=== PATIENT | female | born 1960 | race Caucasian/White ===

== ENCOUNTER 2020-05-09 11:18 | Outpatient (CLI) | payer OTHER, SELFPAY ==
--- NOTE | ~2020-05-09 | XR_ITS ---
EXAMINATION: XR chest 2V EXAM DATE: 05/09/2020 11:42 INDICATION: Shortness of breath. TECHNIQUE: Frontal and lateral projections of the chest obtained and reviewed. Comparison is made to prior examination from 02/03/2015. FINDINGS: The lungs are clear. There are no pleural effusions. The cardiomediastinal silhouette is within normal limits. There is no pneumothorax suspected. The bones and soft tissues are unremarkab le. IMPRESSION: Normal chest x-ray exam. Reviewed, dictated and finalized at location B. IMPRESSION: Normal chest x-ray exam.
--- NOTE | 2020-05-09 11:57 | ECG_ITS ---
Measurements Intervals [place] Rate: 58 P: 30 AL: 124 QRS: 57 QRSD: 89 T: 64 QT: 394 QTc: 387 Interpretive Statements SINUS BRADYCARDIA BORDERLINE ECG Electronically Signed On 05-09-2020 13:03:30 CDT by Robb Aponte D.O.
[2020-05-09 12:14] LABS: Hematocrit 42.5 % (37.0-47.0); Hemoglobin 13.9 g/dL (12.0-15.0); Mean Corpuscular HGB Conc 32.7 g/dl (32-36); Mean Corpuscular Volume 91.6 fl (80-100); Mean Platelet Volume 9.7 fl (7.4-10.4); Platelet Count Result 338 k/mm3 (150-375); Red Blood Count 4.64 M/mm3 (4.2-5.4); Red Cell Distribution Width 12.8 % (11.5-14.5); White Blood Count 6.3 K/mm3 (4.5-10.0)
[2020-05-09 12:23] LABS: Alanine Aminotransferase 15 U/L (4-35); Albumin Level 4.2 g/dL (3.5-5.1); Alkaline Phosphatase 77 U/L (38-126); Anion Gap 6 mmol/L (8-16); Aspartate Amino Transferase 22 U/L (14-36); Bilirubin,Total 0.8 mg/dL (0.2-1.3); Blood Urea Nitrogen 13 mg/dL (7-17); Calcium 9.3 mg/dL (8.4-10.2); Carbon Dioxide 27 mmol/L (22-30); Chloride 105 mmol/L (98-107); Cholesterol 199 mg/dL (0-200); Estimated Glomerular Filt Rate > 60; Glucose 98 mg/dL (65-105); HDL Direct 45 mg/dL; Potassium 4.8 mmol/L (3.4-5.0); Sodium 138 mmol/L (137-145); Triglycerides 194 mg/dL (<150)
[2020-05-09 12:33] LABS: NT Pro B Type Natriuretic Pept 244 PG/ML (5-100)
[2020-05-09 12:35] LABS: LDL Cholesterol Direct 126 mg/dL
[2020-05-09 12:50] LABS: Vitamin D 25 Hydroxy 25.1 ng/mL
== END 2020-05-09 11:19 | disposition home or self-care (01) ==
LOC: ANHIMG 11:25
PROVIDERS: PCP Family Medicine; Visit Provider Nurse Practitioner Family
DX: R07.89 Other chest pain (principal); R06.02 Shortness of breath; I10 Essential (primary) hypertension; Z13.220 Encounter for screening for lipoid disorders; R53.83 Other fatigue; Z13.29 Encounter for screening for other suspected endocrine disorder; Z13.1 Encounter for screening for diabetes mellitus; R10.13 Epigastric pain; Z86.39 Personal history of other endocrine, nutritional and metabolic disease; R06.00 Dyspnea, unspecified; R06.01 Orthopnea; M25.471 Effusion, right ankle; M25.472 Effusion, left ankle
CPT/HCPCS: 36415; 71046; 80053; 80061; 82306; 82607; 83880; 84443; 85027; 93005

== ENCOUNTER 2020-05-16 12:25 | Outpatient (CLI) | payer OTHER, SELFPAY ==
--- NOTE | ~2020-05-16 | US_ITS ---
EXAMINATION: US carotid duplex BI DATE: 05/16/2020 12:58 INDICATION: Presyncope. TECHNIQUE: Grayscale, color Doppler, and pulsed Doppler images of the cervical carotid arteries were obtained. The degree of vessel stenosis is placed in one of the following categories: normal, <50%, 5 0-69%, >=70% but less than near-occlusion, near-occlusion, or total occlusion. Note that percent sten osis relative to normal distal artery lumen diameter is indirectly measured from velocity measurement s as described by Luc, et al. Radiology 2003; 229:[id number]. COMPARISON: None. FINDINGS: RIGHT: The right common carotid artery (CCA) peak systolic velocity (PSV) is 64 cm/s. The right internal car otid artery (ICA) PSV is 99 cm/s. The right ICA end-diastolic velocity (EDV) is 40 cm/s. The right IC A/CCA PSV ratio is 1.5. Grayscale and color Doppler images yield an estimate of <50% diameter reducti on from plaque in the ICA. There is antegrade flow in the right vertebral artery. LEFT: The left CCA PSV is 79 cm/s. The left ICA PSV is 95 cm/s. The left ICA EDV is 33 cm/s. The left ICA/C CA PSV ratio is 1.2. Grayscale and color Doppler images yield an estimate of <50% diameter reduction from plaque in the ICA. There is antegrade flow in the left vertebral artery. IMPRESSION: 1. <50% stenosis in the right internal carotid artery. 2. <50% stenosis in the left internal carotid artery. Reviewed, dictated and finalized at location A.
== END 2020-05-16 12:26 | disposition home or self-care (01) ==
LOC: ANHIMG 12:27
PROVIDERS: PCP Family Medicine; Visit Provider Nurse Practitioner Family
DX: R07.89 Other chest pain (principal); I65.23 Occlusion and stenosis of bilateral carotid arteries
CPT/HCPCS: 93880

== ENCOUNTER 2020-06-23 09:02 | Emergency (ER) | payer OTHER, SELFPAY ==
[2020-06-23] VITALS (7 sets, daily range): BP systolic 116–129; BP diastolic 82–95; PULSE 67–88; RESP 12; TEMP 36.8; O2SAT 96–99
--- NOTE | ~2020-06-23 | XR_ITS ---
EXAMINATION: XR chest 1V portable EXAM DATE: 06/23/2020 09:57 INDICATION: Cough, left-sided chest pain. TECHNIQUE: Frontal and lateral projections of the chest obtained and reviewed. There is no prior janis dy for comparison. FINDINGS: Moderate chronic hyperinflation. The lungs are clear. There are no pleural effusions. The cardiomediastinal silhouette is within normal limits. There is no pneumothorax suspected. The bone s and soft tissues are unremarkable. IMPRESSION: 1. No acute cardiopulmonary findings. 2. Hyperinflation. Reviewed, dictated and finalized at location G. R INSPECTOR
--- NOTE | 2020-06-23 09:18 | ECG_ITS ---
Measurements Intervals [place] Rate: 70 P: 19 ND: 103 QRS: 66 QRSD: 82 T: 72 QT: 354 QTc: 384 Interpretive Statements SINUS RHYTHM WITH SHORT ND INTERVAL BASELINE WANDER- V1, V3-V5 BORDERLINE ECG Electronically Signed On 06-23-2020 9:36:16 HAND TRIMMER by Robb Aponte D.O.
[2020-06-23 09:50] LABS: Basophils Percent Auto 0.5 % (0.2-1.2); Eosinophils Absolute Auto 0.1 K/mm3 (0-0.3); Eosinophils Percent Auto 2.8 % (0-4.4); Hematocrit 41.6 % (37.0-47.0); Hemoglobin 13.8 g/dL (12.0-15.0); Immature Granulocyte Absolute 0.01 K/mm3 (0.00-0.031); Immature Granulocyte Percent A 0.3 % (0-0.5); Lymphocytes Absolute Auto 1.01 K/mm3 (0.9-3.2); Lymphocytes Percent Auto 25.4 % (18.3-44.2); Mean Corpuscular HGB Conc 33.2 g/dl (32-36); Mean Corpuscular Volume 90.4 fl (80-100); Mean Platelet Volume 9.5 fl (7.4-10.4); Monocytes Absolute Auto 0.8 K/mm3 (0.1-0.6); Monocytes Percent Auto 19.1 % (2.6-8.5); Neutrophils Absolute Auto 2.1 K/mm3 (1.3-6.7); Neutrophils Percent Auto 51.9 % (45.5-73.1); Platelet Count Result 292 k/mm3 (150-375); Red Cell Distribution Width 12.6 % (11.5-14.5)
[2020-06-23] MEDS: KETOROLAC 15 MG/ML VIAL (*BKC) IV PUSH (10:16)
[2020-06-23 10:38] LABS: Alanine Aminotransferase 17 U/L (4-35); Albumin Level 4.1 g/dL (3.5-5.1); Alkaline Phosphatase 76 U/L (38-126); Anion Gap 7 mmol/L (8-16); Aspartate Amino Transferase 22 U/L (14-36); Bilirubin,Total 0.7 mg/dL (0.2-1.3); Blood Urea Nitrogen 12 mg/dL (7-17); Calcium 8.8 mg/dL (8.4-10.2); Carbon Dioxide 30 mmol/L (22-30); Chloride 104 mmol/L (98-107); Estimated CRCL calculation 73 ml/min; Estimated Glomerular Filt Rate > 60; Glucose 90 mg/dL (65-105); Lipase 148 U/L (23-300); Potassium 4.5 mmol/L (3.4-5.0); Sodium 141 mmol/L (137-145)
[2020-06-23 10:48] LABS: Troponin I < 0.012 ng/mL (0.000-0.034)
--- NOTE | 2020-06-23 11:18 | PC.NURSE ---
Bedside report to TRENA Zayas, to continue care.
--- NOTE | 2020-06-23 11:20 | PC.NURSE ---
received report from Richard ALBRECHT. resting on stretcher. unhooked from monitor to use restroom. states she didnt have any relief from Toradol. will discuss with provider.
--- NOTE | 2020-06-23 11:56 | PC.NURSE ---
back on stretcher. back on monitors. should be close to discharge. patient aware.
--- NOTE | 2020-06-23 12:13 | ED.GENADULT ---
HPI - General Adult General Chief complaint: Abdominal Pain Stated complaint: chest pain, headache, diarrhea Time Seen by Provider: 06/23/20 09:14 History of Present Illness HPI narrative: Patient is a 6-year-old female with multiple complaints. First complaint is that she may have COVID-19. She has had runny nose and cough for the last week. Is been associated with diarrhea. No known exposures. She took the day off from work and was referred here to get a Covid test. She also reports that she has developed some central chest discomfort at the lower aspect of the sternum that radiates around the left side of her chest wall into her back. She has point tenderness in her back as well and she also reports some tingling. She has a little bit of a skin eruption over the anterior lower chest which she reports the pain. No fevers or chills or sweats. No drainage from the wound. Related Data Allergies Allergy/AdvReac Type Severity Reaction Status Date / Time Cephalosporins Allergy Unknown Unknown Verified 05/09/20 09:57 Penicillins Allergy Unknown Unknown Verified 05/09/20 09:57 Sulfa (Sulfonamide Allergy Unknown Unknown Verified 05/09/20 09:57 Antibiotics) sulfanilamide Allergy Unknown Unknown Verified 05/09/20 09:57 tetracycline Allergy Unknown Unknown Verified 05/09/20 09:57 ampicillin Allergy Rash Verified 06/23/20 09:33 Review of Systems Review of Systems: All systems reviewed & are unremarkable except as noted in HPI and below Constitutional: Constitutional: Denies chills, Denies fever(s) and Denies weakness ENT: Reports nasal congestion and Reports sore throat Cardiovascular: Cardiovascular: Reports chest pain, Denies rapid heart rate and Denies radiating jaw, neck or arm pain Respiratory: Respiratory: Reports cough, Denies dyspnea and Denies wheezing Gastrointestinal: Gastrointestinal: Reports abdominal pain, Reports diarrhea, Denies nausea and Denies vomiting PMFSH Past Medical History Medical History (Updated 06/23/20 @ 12:18 by Ramesh Sevilla MD) Mixed hyperlipidemia Surgical History Surgical History (Updated 06/23/20 @ 12:15 by Ramesh Sevilla MD) No pertinent past surgical history Family History Family History Father Hypertension Family history of elevated blood lipids Mother Cerebrovascular accident Family history of diabetes mellitus in first degree relative Family history of coronary artery disease Sibling Family history of pancreatic cancer Social History Social History Smoking status: Former smoker Second hand tobacco smoke exposure: No Alcohol intake: never Gender identity (if verbalized by the patient): Female Exam Narrative: Exam Narrative: GENERAL: Well-appearing, well-nourished, and in no acute distress. HEAD: Normocephalic, atraumatic. CHEST: Clear to auscultation. No respiratory distress. HEART: Regular rate and rhythm. Normal peripheral pulses. ABDOMEN: Soft, nontender, nondistended. EXTREMITIES: Normal range of motion. No edema. Back: Paraspinal muscle tenderness at the level of T10 on the left side. No rash over the back. SKIN: Warm, dry, 2 red circular areas to the anterior chest wall just at the xiphoid process. These are not weeping but one has a small ulceration.. NEURO: Alert and oriented x3. Course Course Emergency Course: Unremarkable evaluation. Patient was swabbed for Covid and should remain in home isolation until she receives the results. Patient also may be beginning to have shingles to the left side of her chest wall given the skin eruption as well as the tingling that radiates around the outside of her chest wall. We will start her on Valtrex also give her [place] for pain. Recommend follow-up with her PCP for further treatment evaluation. Vital Signs Vital signs: Vital Signs Temperature 98.2 F 06/23/20 09:27 Pulse Rate 82 06/23
--- NOTE | 2020-06-23 12:25 | PC.NURSE ---
test results and plan for discharge reviewed with patient by provider. monitors removed. SL removed intact and without difficulty. patient getting dressed.
--- NOTE | 2020-06-23 12:32 | PC.NURSE ---
discharge instructions reviewed with patient. verbalizes understanding. denies needs prior to discharge. ambulated to ED exit with steady gait.
[2020-06-23 20:27] LABS: SARS-CoV-2 RNA PCR Positive
== END 2020-06-23 12:34 | disposition home or self-care (01) ==
PROVIDERS: Emergency Provider Emergency Medicine; PCP Family Medicine
DX: U07.1 COVID-19 (principal); B02.9 Zoster without complications; E78.2 Mixed hyperlipidemia; Z87.891 Personal history of nicotine dependence
CPT/HCPCS: 36415; 71045; 80053; 83690; 84484; 85025; 87635; 93005; 96374; 99284; C9803; J1885; U0003

== ENCOUNTER 2023-04-16 13:20 | Outpatient (CLI) | payer BC, SELFPAY ==
--- NOTE | ~2023-04-16 | XR_ITS ---
EXAMINATION: XR chest 2V Exam Date/Time: 04/16/2023 13:35 CDT HISTORY: Chronic cough, shortness of breath Comparison: 06/23/2020. RESULT: Lines, tubes, and devices: Cholecystectomy clips. Lungs and pleura: Biapical pleural scarring. Otherwise clear. Cardiomediastinal silhouette: Stable. Other: No acute osseous or upper abdominal finding. IMPRESSION: No acute cardiopulmonary process. Reviewed, dictated and finalized at location K.
== END 2023-04-16 13:21 | disposition home or self-care (01) ==
LOC: ANHIMG 13:27
PROVIDERS: PCP Family Medicine; Visit Provider Physician Assistant Medical
DX: R05.3 Chronic cough (principal)
CPT/HCPCS: 71046

== ENCOUNTER 2023-06-06 12:23 | Outpatient (CLI) | payer BC, SELFPAY ==
--- NOTE | 2023-06-06 14:26 | WPDPFTINT ---
PFT Procedure Performed PFT Procedure Performed Spirometry with Pre/Post Bronchodilator Plethysmography (Lung Vol) Diffusing Cap (DLCO) Flow Vol Loop PFT Interpretation This is a pulmonary function test with pre and post-bronchodilator spirometry, plethysmography and diffusing capacity. The test was performed and results interpreted in accordance with the 2019 and 2005 ATS/ERS Task Force guidelines respectively using the Global Lung Function Initiative-2012 reference equations. Patient demonstrated good effort and cooperation. Reproducibility criteria were met. The quality of the pre bronchodilator spirometry maneuver was Grade A and post bronchodilator spirometry maneuver was Grade A. Findings: Spirometry: There is decreased maximal expiratory airflow at all lung volumes with concave expiratory flow tracing. The contour the inspiratory flow tracing is normal. The pre bronchodilator FVC is 3.03 L, 78% predicted. The pre bronchodilator FEV1 is 1.22 L, 41% predicted. The pre bronchodilator FEV1: FVC ratio is 40%. The post bronchodilator FVC is 3.23 L, representing a 7% increase. The post bronchodilator FEV1 is 1.61 L, representing a 32% increase. The post bronchodilator FEV1: FVC ratio is 50%. Plethysmography: The total lung capacity is 6.97 L, 115% predicted. The functional residual capacity is 4.61 L, 132% predicted. The residual volume is 3.94 L, 165% predicted. Diffusing capacity: The diffusing capacity unadjusted for hemoglobin and carboxyhemoglobin is 13.2, 55% predicted. The diffusing capacity adjusted for alveolar volume is 3.89, 96% predicted. Impression: There is a severe obstructive abnormality with significant improvement after inhaling a single dose of albuterol. The increase in residual volume is consistent with air trapping from an obstructive abnormality. Hyperinflation is present as demonstrated by the increase in functional residual capacity and is consistent with an obstructive abnormality. The diffusing capacity unadjusted for hemoglobin and carboxyhemoglobin is moderately decreased and normalizes when adjusted for alveolar volume. There are no prior studies for comparison
== END 2023-06-06 12:24 | disposition home or self-care (01) ==
LOC: ANHPFT 12:24
PROVIDERS: PCP Family Medicine; Visit Provider Physician Assistant Medical
DX: R05.3 Chronic cough (principal); R94.2 Abnormal results of pulmonary function studies
CPT/HCPCS: 94060; 94726; 94729

== ENCOUNTER 2023-06-12 14:00 | Outpatient (RCR) | payer BC, SELFPAY ==
--- NOTE | 2023-05-08 08:20 | PTOPEVAL1 ---
Assessment and note entered by Jai Moore Evaluation Information Assessment Status Evaluation Diagnosis bicipital tendonitis, right shoulder pain Onset 02/05/23 Subjective Information Pt. reports that she developed right shoulder pain about 2 months. She recalls no incident, just a gradual onset of pain. She reports that pain radiates into the lateral brachial region. She denies any numbness or tingling in the right arm. She reports that reaching overhead causes the most pain. She notes some pain with reaching behind her back, but not as intense as reaching overhead head. 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 She reports that pain will wake her at night. She enjoys fishing, but avoids the activity currently due to pain. She reports that her goal for therapy is to reduce her shoulder pain. Reported Pain Level Pain Score 5: Self Report Assessment PT Clinical Summary Pt. is a 63 year old female who enters the clinic with right shoulder pain. Pt. presentation is consistent with right shoulder rotator cuff syndrome on this date. Currently pt. presents with impaired ROM, impaired strength, pain and functional decline. Continued skilled PT is indicated in order to improve these areas to allow for improved comfort with all IADL's. Plan of Care Interventions Electrical Stimulation,Hot Pack/Cold Pack,Manual Therapy,Neuro Re-education,Patient/Caregiver Educati,Therapeutic Activities,Therapeutic Exercise,Self-Care/Home Management PT Services Indicated Yes Treatment Frequency and 2x/week x 10 visits Duration These treatments will address the objective and functional deficits as defined above. The patient will be advanced safely and appropriately in order for the patient to progress towards his/her prior level of function. Additional exercises will be introduced and as well as a comprehensive home exercise program upon discharge, if needed, ?to ensure carryover of functional gains achieved in the clinic. This treatment plan has been reviewed and agreement upon by the patient.
--- NOTE | 2023-05-08 08:31 | OPREHPOC ---
Outpatient Therapy Plan of Care This is a Multidisciplinary Plan of Care that may contain components documented by all disciplines (PT, OT, and ST.) PT Problem 1 PT Problem #1 Knowledge Deficit PT Goal 1 Goal Independent with a HEP addressing shoulder strength and ROM Target Visit 2 PT Problem 2 PT Problem #2 Pain PT Goal 1 Goal Decrease pain to 2/10 at worst with all overhead reaching and activities that require reaching behind the back. Target Visit 10 PT Problem 3 PT Problem #3 Impaired Range of Motion PT Goal 1 Goal -Pt. will demonstrates symmetry with reaching into combined IR and extension at the shoulder joints to assist with grooming and dressing activities. -Pt. will reach to 140 degrees active right shoulder flexion against gravity. Target Visit 10 PT Problem 4 PT Problem #4 Impaired Strength PT Goal 1 Goal Pt. will demonstrate 4/5 proximal right u.e. strenth Target Visit 5 PT Goal 2 Goal Pt. 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 Target Visit 10
--- NOTE | 2023-06-12 14:56 | PTOPDC ---
Assessment and note entered by Jai Moore Evaluation Information Assessment Status Discharge Diagnosis bicipital tendonitis, right shoulder pain Onset 02/05/23 Subjective Information Pt. reports she has seen no change in her pain levels. She reports that the arm is moving a little better, but still very painful with all movement. She report that pain is still notable with sleeping. She states that she will contact her doctor regarding possible MRI. Reported Pain Level Pain Score 7: Self Report Assessment PT Clinical Summary Pt. has attended a total of 10 treatment sessions. She demonstrates no change in her Quick DasH score since beginning treatment. Pt. does demonstrate slight improvements in overhead active ROM with the right u.e. At this time pt. is encouraged to continue with exercise at home to continue to improve ROM. Given the severity of her pain, recommend follow up with her doctor to discuss if MRI is indicated to check the intergrity of the rotator cuff. Plan of Care PT Services Indicated D/C from PT and consider MRI to assess rotator cuff integrity.
== END 2023-06-12 15:09 | disposition home or self-care (01) ==
LOC: ANHPT 14:00
PROVIDERS: PCP Family Medicine; Visit Provider Physician Assistant Medical
DX: M75.21 Bicipital tendinitis, right shoulder (principal)
CPT/HCPCS: 97014; 97110; 97140; 97161; 97530; G0283

== ENCOUNTER 2023-06-13 08:32 | Outpatient (CLI) | payer BC, SELFPAY ==
--- NOTE | ~2023-06-13 | CT_ITS ---
EXAMINATION:CT diagnostic chest w con DATE: 06/13/2023 09:11 INDICATION: Chronic cough. TECHNIQUE: Computed tomography (CT) of the chest was performed with 75 mL Omnipaque 350 intravenous c ontrast. Automated exposure control and iterative reconstruction technique were employed. The dose-le ngth product (DLP) was 264.76 mGy-cm. COMPARISON: Chest 2 views 04/16/2023 FINDINGS: There is mild scarring at the lung apices. There are centrilobular nodules measuring up to 5 mm in a cluster in left lower lobe. There are a few other scattered nodules in the lungs measuring up to 3 mm, likely benign. No pleural effusion. The heart size is normal. No pericardial effusion. Th ere is mild thoracic spondylosis. IMPRESSION: 1. Cluster of centrilobular nodules in left lung lower lobe, likely mild infection. 2. Mild scarring at the lung apices. Reviewed, dictated and finalized at location E. IMPRESSION: 1. Cluster of centrilobular nodules in left lung lower lobe, likely mild infect ion. 2. Mild scarring at the lung apices.
[2023-06-13 09:01] LABS: Estimated Glomerular Filt Rate > 60
== END 2023-06-13 08:33 | disposition home or self-care (01) ==
PROVIDERS: PCP Family Medicine; Visit Provider Physician Assistant Medical
DX: R05.9 Cough, unspecified (principal); J44.9 Chronic obstructive pulmonary disease, unspecified; R91.8 Other nonspecific abnormal finding of lung field
CPT/HCPCS: 71260; Q9967

== ENCOUNTER 2023-07-24 07:22 | Outpatient (CLI) | payer BC, SELFPAY | END 2023-07-24 07:23 | disposition home or self-care (01) | LOC: ANHLAB 07:23 | PROVIDERS: PCP Family Medicine; Visit Provider Physician Assistant | DX: R05.8 Other specified cough (principal) | CPT/HCPCS: 87015; 87070; 87102; 87106; 87116; 87118; 87205; 87206 ==

== ENCOUNTER 2023-10-13 17:54 | Emergency (ER) | payer BC, SELFPAY ==
--- NOTE | ~2023-10-13 | XR_ITS ---
EXAMINATION: XR chest 2V Exam Date/Time: 10/13/2023 18:45 CHEMICAL DEPENDENCY THERAPIST HISTORY: SOB,COUGH Comparison: 04/16/2023. RESULT: Lines, tubes, and devices: None. Lungs and pleura: Biapical pleural scarring, otherwise clear. Cardiomediastinal silhouette: Stable. Other: No acute osseous or upper abdominal finding. IMPRESSION: No acute cardiopulmonary process. Reviewed, dictated and finalized at location K. ICAL DEPENDENCY THERAPIST
[2023-10-13 18:09] VITALS: BP 165/85; PULSE 117; RESP 16; TEMP 36.4; O2SAT 98
--- NOTE | 2023-10-13 19:02 | ED.SOB ---
HPI - SOB/Dyspnea General Chief Complaint: Shortness of Breath/Dyspnea Stated Complaint: Trouble Breathing Time Seen by Provider: 10/13/23 18:00 Source: patient, RN notes reviewed and old records reviewed (Pulmonology) Mode of arrival: ambulatory Limitations: no limitations History of Present Illness HPI Narrative: Patient presents today complaining of worsening shortness of breath since yesterday as well as a headache. 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 The infectious disease physician at [facility] has some cultures and she has an appointment there at the end of October. In the meantime she has been on multiple courses of antibiotics and steroids for her cough and shortness of breath as well as frequent nebulizer treatments (q3hrs) and inhalers. States she is short of breath now more than she has ever been. Related Data Allergies Allergy/AdvReac Type Severity Reaction Status Date / Time Cephalosporins Allergy Unknown Unknown Verified 10/13/23 18:24 Penicillins Allergy Unknown Unknown Verified 10/13/23 18:24 Sulfa (Sulfonamide Allergy Unknown Unknown Verified 10/13/23 18:24 Antibiotics) sulfanilamide Allergy Unknown Unknown Verified 09/30/23 10:01 tetracycline Allergy Unknown Unknown Verified 10/13/23 18:24 ampicillin Allergy Rash Verified 09/30/23 10:01 Review of Systems Review of Systems: CONSTITUTIONAL: Denies body aches, fever, chills, or sweats. EYES: Denies visual changes, redness, or discharge. ENT: Denies rhinorrhea, congestion, sore throat, or otalgia. CARDIOVASCULAR: Denies chest pain, palpitations, or edema. RESPIRATORY: + shortness of breath, wheezing GASTROINTESTINAL: Denies abdominal pain, nausea, vomiting, or diarrhea. GENITOURINARY: Denies dysuria or hematuria. SKIN: Denies rash, itching, or wounds. MUSCULOSKELETAL: Denies back pain, joint pain, or myalgia. NEUROLOGIC: Denies numbness, tingling, or weakness.+ headache PSYCH: Denies depression or anxiety. [facility] Past Medical History Medical History BMI 25.0-25.9,adult BMI 26.0-26.9,adult Mixed hyperlipidemia Surgical History Surgical History No pertinent past surgical history Family History Family History Father Hypertension Family history of elevated blood lipids Mother Cerebrovascular accident Family history of diabetes mellitus in first degree relative Family history of coronary artery disease Acute myocardial infarction Sibling Family history of pancreatic cancer Sibling Heart disease Social History Social History Smoking status: Former smoker Second hand tobacco smoke exposure: No Alcohol intake: never Substance use: never Substance use type: does not use Lack of Transportation: No Lack of Food: Never True Current Housing: I Have Housing Concerned About Future Housing: No Difficulty Paying Gas/Electric Bills: No Difficulty Paying for Meds: No Currently Unemployed: No Education: High School Diploma/GED Difficulty w/ Childcare or Family Care: No Living arrangements: alone Occupation/Education: retired 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 Please see nursing chart for further information. There is no relevant family history pertinent to the presenting complaint Exam Narrative: GENERAL: Mildly ill-appearing, well-nourished, and in no acute distress. HEAD: Normocephalic, atraumatic. EYES: EOMI. No redness or drainage. Conjunctivae normal. ENT:
[2023-10-13] MEDS: IPRATROPIUM BR 0.02% INH SOLN 0.5 MG/2.5 ML VIAL INHALATION (19:40)
[2023-10-13] MEDS: ALBUTEROL SULFATE NEB 2.5 MG/3 ML INH INHALATION (19:40)
[2023-10-13] MEDS: dexAMETHasone SOD PHOS INJ 10 MG/ML 1 ML VIAL IM (19:40)
== END 2023-10-13 20:15 | disposition home or self-care (01) ==
PROVIDERS: Emergency Provider Nurse Practitioner; PCP Family Medicine
DX: R06.02 Shortness of breath (principal); Z87.891 Personal history of nicotine dependence; E78.2 Mixed hyperlipidemia
CPT/HCPCS: 71046; 94640; 96372; 99213; G0463; J1100

== ENCOUNTER 2023-10-21 10:54 | Outpatient (CLI) | payer BC, SELFPAY ==
--- NOTE | ~2023-10-21 | CT_ITS ---
EXAMINATION: CT diagnostic chest wo con DATE: 10/21/2023 11:19 INDICATION: Solitary pulmonary nodule TECHNIQUE: Computed tomography (CT) of the chest was performed without intravenous contrast. The dose -length product (DLP) was 117.84 mGy-cm. Automated exposure control and iterative reconstruction tech [employer] were employed. COMPARISON: 07/14/2023 FINDINGS: The previously described centrilobular nodules of the left lower lobe have resolved, consis tent with resolved infection/inflammation. There are new airspace opacities in the right middle lobe. Scattered stable pulmonary nodules measure up to 3 mm and likely reflect old granulomatous disease. No pleural effusion or pneumothorax. No pathologically enlarged thoracic lymph nodes are identified. The heart size is normal. Changes of cholecystectomy are noted. There is mild thoracic spondylosis. IMPRESSION: 1. Interval resolution of the previously described centrilobular nodules of the left lower lobe, cons istent with infection/inflammation. 2. New airspace opacities of the right middle lobe, consistent with pneumonia. Reviewed, dictated and finalized at location L. [employer] IMPRESSION: 1. Interval resolution of the previously described centrilobular nodules of the left lower lobe, consistent with infection/inflammation. 2. New airspace opacities of the right middle lobe, consistent with pneumonia.
== END 2023-10-21 10:55 | disposition home or self-care (01) ==
PROVIDERS: PCP Family Medicine; Visit Provider Physician Assistant
DX: R91.8 Other nonspecific abnormal finding of lung field (principal); R91.1 Solitary pulmonary nodule
CPT/HCPCS: 71250

== ENCOUNTER 2023-10-22 15:50 | Inpatient (IN) | payer BC, SELFPAY ==
[2023-10-22] VITALS (12 sets, daily range): BP systolic 150–171; BP diastolic 82–100; PULSE 98–107; RESP 16–22; TEMP 36.2–36.4; O2SAT 93–95; BMI 24.7
--- NOTE | ~2023-10-22 | CT_ITS ---
EXAMINATION: CTA chest PE protocol DATE: 10/24/2023 11:02 INDICATION: Shortness of breath TECHNIQUE: Computed tomography angiography (CTA) of the chest was performed with 100 mL Omnipaque-350 intravenous contrast timed to evaluate the pulmonary arteries. Coronal maximum intensity projection 3D-reconstructions were created by the technologist. The dose-length product (DLP) was 266.89 mGy-cm. Automated exposure control and iterative reconstruction technique were employed. COMPARISON: 10/21/2023 FINDINGS: The pulmonary arteries are well-opacified. No pulmonary embolism is identified. There are i mproving airspace opacities of the right middle lobe. No pleural effusion or pneumothorax. Scattered stable pulmonary nodules measuring up to 3 mm likely reflect old granulomatous disease. No pathologic ally enlarged thoracic lymph nodes are identified. The heart size is normal. There is mild thoracic s pondylosis. Changes of cholecystectomy are noted. IMPRESSION: 1. Persistent but improving airspace opacities of the right middle lobe, consistent with pneumonia. 2. No pulmonary embolus identified. Reviewed, dictated and finalized at location B. UNITY SERVICE MANAGER IMPRESSION: 1. Persistent but improving airspace opacities of the right middle lobe, consis tent with pneumonia. 2. No pulmonary embolus identified.
--- NOTE | ~2023-10-22 | XR_ITS ---
EXAMINATION: XR chest 1V portable INDICATION: Pneumonia, shortness of breath TECHNIQUE: Portable AP chest at 1016 hours COMPARISON: 10/13/2023; CT, 10/21/2023 FINDINGS: The right middle lobe airspace opacity described on CT is not definitely identified. No ple ural effusion or pneumothorax. The cardiomediastinal silhouette is normal. IMPRESSION: 1. No acute cardiopulmonary abnormality. Reviewed, dictated and finalized at location L. ASSEMBLER
--- NOTE | 2023-10-22 17:15 | ECG_ITS ---
Measurements Intervals [place] Rate: 95 P: 1 [place]: 83 QRS: 66 QRSD: 98 T: 63 QT: 341 QTc: 430 Interpretive Statements SINUS RHYTHM WITH SHORT [place] INTERVAL BASELINE ARTIFACT- I, III, AVL, AVF BORDERLINE ECG COMPARED TO ECG 06/23/2020 09:19:29 NO SIGNIFICANT CHANGES Electronically Signed On 10-22-2023 20:00:58 ROPE SILICA MACHINE OPERATOR by Robb Aponte D.O.
[2023-10-22] MEDS: SODIUM CHLORIDE 0.9% IV 1,000 ML 999 ML IV CONT (18:37)
[2023-10-22 18:41] LABS: Basophils Absolute Auto 0.1 K/mm3 (0.0-0.1); Eosinophils Absolute Auto 0.9 K/mm3 (0-0.3); Eosinophils Percent Auto 10.6 % (0-4.4); Hematocrit 42.2 % (37.0-47.0); Hemoglobin 13.5 g/dL (12.0-15.0); Immature Granulocyte Absolute 0.01 K/mm3 (0.00-0.031); Immature Granulocyte Percent A 0.1 % (0-0.5); Lymphocytes Absolute Auto 1.65 K/mm3 (0.9-3.2); Lymphocytes Percent Auto 19.9 % (18.3-44.2); Mean Corpuscular Hemoglobin 29.3 pg (26-34); Mean Corpuscular Volume 91.5 fl (80-100); Mean Platelet Volume 9.5 fl (7.4-10.4); Monocytes Absolute Auto 0.8 K/mm3 (0.1-0.6); Monocytes Percent Auto 9.5 % (2.6-8.5); Neutrophils Absolute Auto 4.9 K/mm3 (1.3-6.7); Neutrophils Percent Auto 58.9 % (45.5-73.1); Platelet Count Result 415 k/mm3 (150-375); Red Blood Count 4.61 M/mm3 (4.2-5.4); Red Cell Distribution Width 13.3 % (11.5-14.5); White Blood Count 8.3 K/mm3 (4.5-10.0)
[2023-10-22 18:50] LABS: Alanine Aminotransferase 22 U/L (6-35); Albumin Level 4.4 g/dL (3.5-5.1); Alkaline Phosphatase 67 U/L (38-126); Anion Gap 5 mmol/L (8-16); Aspartate Amino Transferase 30 U/L (14-36); Bilirubin,Total 0.7 mg/dL (0.2-1.3); Blood Urea Nitrogen 18 mg/dL (7-17); Calcium 9.2 mg/dL (8.4-10.2); Carbon Dioxide 27 mmol/L (22-30); Chloride 107 mmol/L (98-107); Estimated CRCL calculation 70 ml/min; Estimated Glomerular Filt Rate > 60; Glucose 90 mg/dL (65-110); Potassium 4.3 mmol/L (3.4-5.0); Sodium 139 mmol/L (137-145)
--- NOTE | 2023-10-22 19:26 | ED.SOB ---
HPI - SOB/Dyspnea General Chief Complaint: Shortness of Breath/Dyspnea Stated Complaint: low o2 sat Time Seen by Provider: 10/22/23 17:15 History of Present Illness HPI Narrative: Patient is a 63-year-old female with a history of COPD presenting with low oxygen. 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 She had an abnormal outpatient CT chest yesterday that was concerning for recurrent pneumonia. She has a history of mycobacterium avium and has been unable to get into the infectious disease clinic until the end of this month. Unfortunately, she has had worsening of her symptoms with cough, shortness of breath, wheezing. States that she can barely walk 50 yd without having to stop to catch her breath. Today she was seen in pulmonology Clinic and she dropped her sats to the 80s with ambulation so she was sent in for admission. States that she has been using her albuterol every few hours and continues to be very symptomatic. Denies any new pain. No nausea or vomiting. No leg swelling. Related Data Home Medications Medication Instructions Recorded Confirmed metoprolol succinate 25 mg 25 mg PO HS 10/22/23 10/22/23 tablet,extended release 24 hr sertraline 100 mg tablet 100 mg PO DAILY 10/22/23 10/22/23 Allergies Allergy/AdvReac Type Severity Reaction Status Date / Time Cephalosporins Allergy Unknown Unknown Verified 10/22/23 14:28 Penicillins Allergy Unknown Unknown Verified 10/22/23 14:28 Sulfa (Sulfonamide Allergy Unknown Unknown Verified 10/22/23 14:28 Antibiotics) sulfanilamide Allergy Unknown Unknown Verified 10/22/23 14:28 tetracycline Allergy Unknown Unknown Verified 10/22/23 14:28 ampicillin Allergy Rash Verified 10/22/23 14:28 Review of Systems Review of Systems: All systems reviewed & are unremarkable except as noted in HPI and below PMFSH Past Medical History Medical History (Updated 10/27/23 @ 22:02 by Lianne Rosales MD) Chronic obstructive pulmonary disease Hypertension Mixed hyperlipidemia Mycobacterium avium complex Surgical History Surgical History History of cholecystectomy Family History Family History Father Hypertension Family history of elevated blood lipids Mother Cerebrovascular accident Family history of diabetes mellitus in first degree relative Family history of coronary artery disease Acute myocardial infarction Sibling Family history of pancreatic cancer Sibling Heart disease Social History Social History (Updated 10/22/23 @ 23:58 by Haydee Mendez PA-C) Social History: Surrogate medical decision maker: Estephania Oconnor, sister. Code status: Full code. Smoking packs per day: 3 Smoking cigarettes per day: 60.0 Years smoked: 10 Smoking pack-years: 30.00 Smoking status: Former smoker Second hand tobacco smoke exposure: No Alcohol intake: never Substance use: never Substance use type: does not use Do You Feel Safe in your Home?: Yes Lack of Transportation: No Lack of Food: Never True Current Housing: I Have Housing Concerned About Future Housing: No Difficulty Paying Gas/Electric Bills: No Difficulty Paying for Meds: No Currently Unemployed: No Education: High School Diploma/GED Difficulty w/ Childcare or Family Care: No Living arrangements: alone Occupation/Education: retired 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 EYES: PERRLA and EOMI. ENT: Mucous membranes moist. NECK: Supple. CHEST: diffuse wheezing bilaterally HEART: Regular rate and rhythm ABDOMEN: Soft, nondistended EXTREMITIES: Normal range of motion. No edema. SKIN: Warm, dry, no rash. NEURO: No focal deficits. Alert a
[2023-10-22] MEDS: levoFLOXacin 750 MG/D5W 150 ML 750 MG/150 ML BAG 100 MG IVPB (19:36)
[2023-10-22] MEDS: methylPREDNISolone SOD SUCC 125 MG VIAL IV PUSH (19:37)
[2023-10-22 19:44] LABS: Influenza A QL RT-PCR Negative (Negative); Influenza B QL RT-PCR Negative (Negative); RSV RNA, RT-PCR Negative (Negative); SARS-CoV-2 RNA PCR Negative (Negative)
[2023-10-22] MEDS: ALBUTEROL SULFATE NEB 2.5 MG/3 ML INH 10 MG INHALATION (19:45)
[2023-10-22] MEDS: IPRATROPIUM BR 0.02% INH SOLN 0.5 MG/2.5 ML VIAL INHALATION ×2 (19:45→21:15)
--- NOTE | 2023-10-22 19:49 | PM.IMHP ---
H&P: HPI History of Present Illness Date/Time: 10/22/23 19:49 [facility] Past Medical History Medical History BMI 25.0-25.9,adult BMI 26.0-26.9,adult Mixed hyperlipidemia Surgical History Surgical History No pertinent past surgical history Family History Family History Father Hypertension Family history of elevated blood lipids Mother Cerebrovascular accident Family history of diabetes mellitus in first degree relative Family history of coronary artery disease Acute myocardial infarction Sibling Family history of pancreatic cancer Sibling Heart disease Social History Social History Smoking status: Former smoker Second hand tobacco smoke exposure: No Alcohol intake: never Substance use: never Substance use type: does not use Lack of Transportation: No Lack of Food: Never True Current Housing: I Have Housing Concerned About Future Housing: No Difficulty Paying Gas/Electric Bills: No Difficulty Paying for Meds: No Currently Unemployed: No Education: High School Diploma/GED Difficulty w/ Childcare or Family Care: No Living arrangements: alone Occupation/Education: retired 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 Gender identity (if verbalized by the patient): Female Meds Home Medications and Allergies Home Medications Medication Instructions Recorded Confirmed Type metoprolol succinate 25 mg See Rx Instructions .Route 05/15/23 10/22/23 Rx tablet,extended release 24 hr .COMPLEX #90 ea sertraline 100 mg tablet See Rx Instructions .Route 08/10/23 10/22/23 Rx .COMPLEX #90 tabs albuterol sulfate 90 mcg/actuation 1 inh inhalation Q4H PRN shortness 09/15/23 10/22/23 Rx aerosol inhaler (ProAir HFA) of breath or wheezing #6.7 grams ipratropium bromide 0.02 % 2.5 ml inhalation QID PRN 10/14/23 10/22/23 Rx solution for inhalation shortness of breath or wheezing #300 mL albuterol sulfate 2.5 mg/3 mL 2.5 mg (3 mL) inhalation Q4-6H PRN 10/16/23 10/22/23 Rx (0.083 %) solution for nebulization shortness of breath or wheezing #180 mL Allergies Allergy/AdvReac Type Severity Reaction Status Date / Time Cephalosporins Allergy Unknown Unknown Verified 10/22/23 14:28 Penicillins Allergy Unknown Unknown Verified 10/22/23 14:28 Sulfa (Sulfonamide Allergy Unknown Unknown Verified 10/22/23 14:28 Antibiotics) sulfanilamide Allergy Unknown Unknown Verified 10/22/23 14:28 tetracycline Allergy Unknown Unknown Verified 10/22/23 14:28 ampicillin Allergy Rash Verified 10/22/23 14:28 Vital Signs Vital Signs - 24 hr 10/22/23 15:52 10/22/23 17:09 10/22/23 17:18 Temperature 97.6 F Pulse Rate 106 H 99 Respiratory Rate 18 20 Blood Pressure 156/100 H 160/82 H Pulse Oximetry 95 93 94 Oxygen Delivery Room Air Room Air 10/22/23 18:30 10/22/23 19:41 Temperature Pulse Rate 105 H 106 H Respiratory Rate 16 22 H Blood Pressure 150/84 H 171/84 H Pulse Oximetry 95 95 Oxygen Delivery H&P: Results Labs Labs: Short CBC 10/22/23 Range/Units 18:27 WBC 8.3 (4.5-10.0) K/mm3 Hgb 13.5 (12.0-15.0) g/dL Hct 42.2 (37.0-47.0) % Plt Count 415 H (150-375) k/mm3 BMP 10/22/23 18:27 Sodium 139 Potassium 4.3 Chloride 107 Carbon Dioxide 27 BUN 18 H Creatinine 0.80 Glucose 90 Calcium 9.2 Liver Function 10/22/23 Range/Units 18:27 Total Bilirubin 0.7 (0.2-1.3) mg/dL AST 30 (14-36) U/L ALT 22 (6-35) U/L Alkaline Phosphatase 67 (38-126) U/L Albumin 4.4 (3.5-5.1) g/dL
--- NOTE | 2023-10-22 21:06 | ADMGEN ---
This patient, Liz Vanegas, was admitted to Medical Room 344-01. Patient/family oriented to hospital policies and general routines including ID bracelet, bed and alarms, visiting hours, pain management, procedures, bathroom and other care routines, personal items, smoking policy, room service/diet, and visiting hours. Information on how to activate the Rapid Response Team has been discussed. Patient/Family are encouraged to report perceived risks to care and to ask questions if they do not understand what they are told or what they should do.
[2023-10-22] MEDS: ALBUTEROL SULFATE NEB 2.5 MG/3 ML INH INHALATION (21:15)
--- NOTE | 2023-10-22 23:37 | PM.IMHP ---
H&P: HPI History of Present Illness Date/Time: 10/22/23 21:00 Chief Complaint: Low oxygen levels. Narrative: This is a very pleasant 63-year-old female with remote history of tobacco abuse (3 packs a day for 10 years, quit 30 years ago), chronic obstructive pulmonary disease, and hypertension who presented to the emergency department for evaluation after she was found to have low oxygen saturations while ambulating at Dr. Johnson's office. The patient provides the following history. Summer 2022 she began having problems with sinus and chest congestion for which she was treated with 2 different antibiotics. She apparently had COVID around the same time as well. Since that time she has had troubles with intermittent productive cough and shortness of breath with exertion. Last spring she was walking 4 miles per day, several times per week, and she can do that no longer. Pulmonary function tests in May 2023 showed severe obstructive abnormality with evidence of air trapping and hyperinflation. She was prescribed a rescue inhaler and Breztri and was referred to pulmonology for further evaluation. Chest CT at the end of May 2023 showed mild biapical scarring, central lobar nodules up to 5 mm in the left lower lobe, and likely mild infection. She was treated with antibiotics and a prednisone taper with orders for repeat CT in 3 months. Sputum for culture, fungal culture, and AFB were also ordered and 3 separate sputum cultures grew MAC for which she completed 3 rounds of antibiotics. Sensitivities obtained at the beginning of August showed susceptibility to inhaled liposomal amikacin and clarithromycin and resistant to everything else. She was referred to infectious disease specialist at [facility] and has an upcoming appointment on November 09. Today she saw Dr. Johnson for follow-up and she was referred to the emergency department as she has been increasingly dyspneic on lesser and lesser exertion recently and she was found to have ambulatory hypoxia in their office. She uses her nebulizer treatment every 3 hours which seems to help but only for brief periods of time. She reports sweats but no fever. She has loss nearly 15 lb under appetite has not been great. She denies sick contacts, nausea, vomiting, chest pain, and pleuritic pain. Review of Systems Review of Systems: Twelve systems were reviewed and are negative except for as per HPI. [facility] Past Medical History Medical History (Updated 10/22/23 @ 23:59 by Haydee Mendez PA-C) Chronic obstructive pulmonary disease Hypertension Mixed hyperlipidemia Mycobacterium avium complex Surgical History Surgical History History of cholecystectomy Family History Family History Father Hypertension Family history of elevated blood lipids Mother Cerebrovascular accident Family history of diabetes mellitus in first degree relative Family history of coronary artery disease Acute myocardial infarction Sibling Family history of pancreatic cancer Sibling Heart disease Social History Social History (Updated 10/22/23 @ 23:58 by Haydee Mendez PA-C) Social History: Surrogate medical decision maker: Estephania Anastasia, sister. Code status: Full code. Smoking packs per day: 3 Smoking cigarettes per day: 60.0 Years smoked: 10 Smoking pack-years: 30.00 Smoking status: Former smoker Second hand tobacco smoke exposure: No Alcohol intake: never Substance use: never Substance use type: does not use Do You Feel Safe in your Home?: Yes Lack of Transportation: No Lack of Food: Never True Current Housing: I Have Housing Concerned About Future Housing: No Difficulty Paying Gas/Electric Bills: No Difficulty Paying for Meds: No Currently Unemployed: No Education: High School Diploma/GED Difficulty w/ Childc
[2023-10-22] MEDS: methylPREDNISolone SOD SUCC 125 MG VIAL 60 MG IV PUSH (23:56)
[2023-10-22] MEDS: METOPROLOL SUCCINATE EXT REL 25 MG TABCR PO (23:57)
[2023-10-23] VITALS (22 sets, daily range): BP systolic 141–151; BP diastolic 69–76; PULSE 93–112; RESP 16–24; TEMP 36.2–36.7; O2SAT 91–96
[2023-10-23] MEDS: ALBUTEROL SULFATE NEB 2.5 MG/3 ML INH INHALATION ×6 (00:50→20:14)
[2023-10-23] MEDS: IPRATROPIUM BR 0.02% INH SOLN 0.5 MG/2.5 ML VIAL INHALATION ×6 (00:50→20:13)
[2023-10-23] MEDS: SODIUM CHLOR 3% 15 ML NEB (RESPIRATORY THERAPY) 6 ML INHALATION (04:48)
[2023-10-23] MEDS: methylPREDNISolone SOD SUCC 125 MG VIAL 60 MG IV PUSH (05:01)
[2023-10-23 06:11] LABS: Hematocrit 41.7 % (37.0-47.0); Hemoglobin 13.1 g/dL (12.0-15.0); Mean Corpuscular HGB Conc 31.4 g/dl (32-36); Mean Corpuscular Hemoglobin 28.7 pg (26-34); Mean Corpuscular Volume 91.2 fl (80-100); Mean Platelet Volume 9.5 fl (7.4-10.4); Platelet Count Result 416 k/mm3 (150-375); Red Blood Count 4.57 M/mm3 (4.2-5.4); Red Cell Distribution Width 13.1 % (11.5-14.5); White Blood Count 6.4 K/mm3 (4.5-10.0)
[2023-10-23 06:19] LABS: Anion Gap 9 mmol/L (8-16); Blood Urea Nitrogen 13 mg/dL (7-17); Calcium 9.2 mg/dL (8.4-10.2); Carbon Dioxide 24 mmol/L (22-30); Chloride 105 mmol/L (98-107); Estimated CRCL calculation 79 ml/min; Estimated Glomerular Filt Rate > 60; Glucose 146 mg/dL (65-110); Potassium 3.9 mmol/L (3.4-5.0); Sodium 138 mmol/L (137-145)
--- NOTE | 2023-10-23 08:10 | PM.IMPN ---
Progress Note: A&P Assessment and Plan (1) Acute respiratory failure with hypoxia: Code(s): J96.01 - Acute respiratory failure with hypoxia Status: Acute Assessment and Plan: 10/23/2023: Patient was hypoxic at her primary care doctor's office earlier yesterday prompting her to get an evaluation at the hospital. Chest CT without contrast shown new airspace opacities of the right middle lobe consistent with pneumonia, scattered stable pulmonary nodules. 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 She is followed by Dr. Johnson which is her [facility] [place] [place] [facility] Pulmonology consulted and following Continue Levaquin IV Continue DuoNebs q.4 hour Continue Solu-Medrol 60 mg IV push q.6 hour Blood and sputum cultures are pending Urine strep, urine Legionella, and mycoplasma were obtained and are pending Will obtain chlamydia PCR as well Patient reporting sore throat this morning, throat lozenges ordered Lungs coarse with inspiratory and expiratory wheezing throughout all lung reilly bilaterally (2) Pneumonia: Code(s): J18.9 - Pneumonia, unspecified organism Status: Acute Assessment and Plan: See above plan of care (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 - Pulmonary mycobacterial infection Status: Acute Assessment and Plan: 10/23/2023: Patient has extensive history of MAC pneumonia, see HPI for more details See above plan of care (4) COPD exacerbation: Code(s): J44.1 - Chronic obstructive pulmonary disease with (acute) exacerbation Status: Acute Assessment and Plan: 10/23/2023: Continue DuoNebs and Solu-Medrol See above plan of care (5) Hypertension: Code(s): I10 - Essential (primary) hypertension Status: Acute Assessment and Plan: 10/23/2023: Blood pressure ranging 143/69 to 160/82 Continue metoprolol ER 25 mg Time Spent With Patient Time with patient: 25 - 35 minutes Subjective Date/time seen: 10/23/23 08:10 Interval history: This is a 63-year-old female who presented to the hospital with chief complaint of hypoxia. Patient was at her kaiako kura kaup[facility] maori's office and did a walk test and they found that her SpO2 was dropping to the 70s. She was sent to the hospital per kaiako kura [place] maori recommendation for further workup and treatment. Workup in the hospital includes a chest CT which shown new airspace opacities of the right middle lobe consistent with pneumonia, scattered stable pulmonary nodules. EKG showing normal sinus rhythm with a rate of 95. Initial labs revealed a white blood cell count of 8.3, normal kidney function, normal liver function, otherwise unremarkable. Urine strep, urine Legionella, and mycoplasma pneumonia are all pending. Respiratory panel was negative for influenza a and B, RSV, COVID. Blood and sputum cultures were obtained and are pending. Patient was given 1 L normal saline, DuoNeb, 125 mg IV push of Solu-Medrol, and started on Levaquin while in the ED. Pulmonology following. (Copied from chart) Of note, The summer she began having problems with sinus and chest congestion for which she was treated with 2 different antibiotics. She apparently had COVID around the same time as well. Since that time she has had troubles with intermittent productive cough and shortness of breath with exertion. Last spring she was walking 4 miles per day, several times per week, and she can do that no longer. Pulmonary function tests in May 2023 showed severe obstructive abnormality with evidence of air trapping and hyperinflation. She was prescribed a rescue inhaler and Breztri and was referred to pulmonology for further evaluation. Chest CT at the end of May 2023 showed mild biapical scarring, central lobar nodules up to 5 mm in the left lower lobe, and likely mild infection. She was treated with antibiotics and a pr
[2023-10-23] MEDS: ENOXAPARIN 40 MG/0.4 ML SYRINGE SUB-Q (09:17)
[2023-10-23] MEDS: SERTRALINE HCL 50 MG TABLET 100 MG PO (09:17)
--- NOTE | 2023-10-23 10:08 | ECHO_ITS ---
Patient Info Name: Liz Vanegas Age: 63 years : 1960 Gender: Female Ht: 71 in Wt: 177 lbs BSA: 2.01 m2 HR: 108 bpm BP: 143 / 69 mmHg Technical Quality: Fair Exam Date: 10/23/2023 12:42 PM Exam Location: Echo Lab Patient Status: Outpatient Admit Date: 10/23/2023 Staff Ordering Physician: Jai Jolly MD Fuel System Maintenance Supervisor: Attending Provider: Makenna Montano MD Referring Physician: Rik MAN; Exam Type: CA echo doppler color flow Study Info Indications R06.00 - Dyspnea, unspecified Complete two-dimensional, color flow and Doppler transthoracic echocardiogram is performed. Summary 1. Complete two-dimensional, color flow and Doppler transthoracic echocardiogram is performed. 2. Left ventricular chamber dimension is normal. 3. Left ventricular systolic function is normal, estimated at 65-70%. 4. The left ventricular diastolic function is normal. 5. E/e' 8 is minimally elevated. 6. There is trace mitral valve regurgitation. 7. There is mild tricuspid valve regurgitation. 8. No pulmonary hypertension, estimated pulmonary arterial systolic pressure is 31 mmHg. Left Ventricle E/e' 8 is minimally elevated. Left ventricular chamber dimension is normal. Left ventricular systolic function is normal, estimated at 65-70%. The left ventricular diastolic function is normal. Right Ventricle Right ventricular chamber dimension is normal. Right ventricular systolic function is normal. Left Atria Left atrial chamber dimension is normal. Right Atria Right atrial chamber dimension is normal. Aortic Valve The aortic valve is trileaflet. There is no aortic valve stenosis. There is no aortic valve regurgitation. Pulmonic Valve There is no pulmonic regurgitation. Mitral Valve There is no mitral valve stenosis. There is trace mitral valve regurgitation. Tricuspid Valve There is mild tricuspid valve regurgitation. No pulmonary hypertension, estimated pulmonary arterial systolic pressure is 31 mmHg. Pericardium/Pleural There is no pericardial effusion. Inferior Vena Cava Normal inferior vena cava with >50% collapse upon inspiration consistent with normal right atrial pressure, 5 mmHg. Aorta The aortic root size at the sinus of Valsalva is normal. Left Ventricular Outflow Tract Name Value Normal LVOT 2D LVOT Diameter 2.0 cm LVOT Doppler LVOT Peak Gradient 7 mmHg LVOT Mean Gradient 3 mmHg LVOT VTI 25 cm LVOT VTI/AV VTI Ratio 0.7 LVOT Stroke Volume 74 ml LVOT CO 8.2 l/min LVOT CI 4.1 l/min/m2 Pulmonic Valve Name Value Normal PV Doppler PV Peak Gradient 3 mmHg Mitral Valve Name Value Normal
--- NOTE | 2023-10-23 10:34 | PM.CNPUL ---
Assessment and Plan Assessment and plan (1) COPD exacerbation: Code(s): J44.1 - Chronic obstructive pulmonary disease with (acute) exacerbation Status: Acute Assessment and Plan: Patient has a 28 pack year tobacco use. PFTs on 06/06/2023 with a severe obstructive abnormality with an FEV1 of 1.22 L, 41% predicted, ratio of 40%, there is air trapping and moderately decreased DLCO that normalized when adjusted for alveolar volume. CT scan of the chest does not show bullous emphysema. She has intermittent wheezing and worsening shortness of breath and hypoxemia. 10/23/23: Currently patient is on room air with saturations 94%. She has rest shortness of breath that is a little bit better since yesterday. Her dyspnea on exertion exertion is worse than yesterday. Her bed cough is better than yesterday and back to her normal. Her white blood cell count is 6.4. She has expiratory wheezes on exam. Plan: I will treat patient for potential COPD exacerbation. I will decrease this patient's Solu-Medrol to 20 mg IV q.6 hours. I will continue nebulized albuterol and ipratropium q.4 hours. Patient is being treated with a pneumonia with Levaquin. She has a cephalosporin and penicillin and sulfa and tetracycline allergy. Patient has new onset leg swelling, worsening PND and states it is easier for her to breathe when she sits more upright over the last few weeks. I will check a BNP and a cardiac echo Discussed with Francisca Campos, will follow with you. (2) Pneumonia: Code(s): J18.9 - Pneumonia, unspecified organism Status: Acute Assessment and Plan: Patient has cough, congestion, wheezing, weakness with a CT scan that shows infiltrates in the right middle lobe. These are mild infiltrates. Patient also has a history of MAC in her sputum x2 with an AFB identified with no identification from 08/22/2023. She has COVID, influenza RSV swab negative. Urine Legionella, urine pneumococcal and mycoplasma IgM are pending. Blood cultures are negative. Plan: I will treat for community-acquired pneumonia and will continue Levaquin. I will send a respiratory pathogen panel. Will follow the patient clinically. If there is no clinical response to treatment for COPD exacerbation and pneumonia may need transfer to [facility] to be evaluated for MAC treatment. Of note she has been referred to [facility] ID clinic and is scheduled to see them on 11/10/2023. (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 - Pulmonary mycobacterial infection Status: Acute Assessment and Plan: sputum cultures and on 07/24/23 her sputum showed SOPHY as well as Sun. Sputum on 08/20/2023 was negative for AFB. Sputum on 08/21/2023 showed SOPHY and normal eduardo. Sputum on 08/22/2023 showed mycobacterium with no identification. Sputum from 08/21 has been tested for sensitivity (in chart). Moxifloxacin 4 resistant, rifampin greater than 4, rifabutin 1, streptomycin greater than 32, amikacin 64 resistant, amikacin liposomal inhaled 64 sensitive, ciprofloxacin 8, clarithromycin 8 sensitive, clobazam mean 0.12. Doxycycline greater than 8. Linezolid greater than 32 resistant. Minocycline greater than 8. If there is no clinical response to treatment for COPD exacerbation and pneumonia may need transfer to [facility] to be evaluated for MAC treatment. Of note she has been referred to [facility] ID clinic and is scheduled to see them on 11/10/2023. History of Present Illness History of Present Illness Consult date: 10/23/23 Chief complaint: Pneumonia Narrative: 10/23/2023: This is a new pulmonary consult for pneumonia and hypoxemia. 63-year-old with a history of hypertension, COPD, pulmonary MAC complex was followed in the Pulmonary Clinic. She was seen in the clinic on 10/22/2023 and this is the note. I spoke with Dr. Johnson on 10/22/2023. 10/22/23 ESTABLISHED: ? This is a sick visit, patient called yest
[2023-10-23 10:42] LABS: NT Pro B Type Natriuretic Pept 287 pg/mL (19.9-100)
[2023-10-23] MEDS: PHENOL/SOD PHENO SPRAY CHERRY (*BKC) 1 SPRAY MUCOUS MEM (11:51)
[2023-10-23] MEDS: BENZOCAINE/MENTHOL (*BKC) 18 EA LOZENGE 1 LOZENGE PO (11:51)
[2023-10-23] MEDS: methylPREDNISolone SOD SUCC 40 MG VIAL 20 MG IV PUSH ×2 (11:52→17:18)
[2023-10-23] MEDS: METOPROLOL SUCCINATE EXT REL 25 MG TABCR PO (19:54)
[2023-10-23] MEDS: ACETAMINOPHEN 325 MG TABLET 650 MG PO (19:54)
[2023-10-23] MEDS: levoFLOXacin 750 MG/D5W 150 ML 750 MG/150 ML BAG 100 MG IVPB (19:55)
[2023-10-24] VITALS (26 sets, daily range): BP systolic 125–161; BP diastolic 69–76; PULSE 87–158; RESP 18–24; TEMP 36.2–36.5; O2SAT 92–94
[2023-10-24] MEDS: ALBUTEROL SULFATE NEB 2.5 MG/3 ML INH INHALATION ×3 (00:02→06:59)
[2023-10-24] MEDS: IPRATROPIUM BR 0.02% INH SOLN 0.5 MG/2.5 ML VIAL INHALATION ×3 (00:02→06:59)
[2023-10-24] MEDS: methylPREDNISolone SOD SUCC 40 MG VIAL 20 MG IV PUSH ×5 (00:06→23:27)
[2023-10-24] MEDS: SODIUM CHLOR 3% 15 ML NEB (RESPIRATORY THERAPY) 6 ML INHALATION (04:38)
[2023-10-24 06:14] LABS: Creatine Kinase 208 U/L (30-135)
[2023-10-24 07:11] LABS: Rheumatoid Factor < 12.0 IU/ML (<12)
[2023-10-24] MEDS: BENZOCAINE/MENTHOL (*BKC) 18 EA LOZENGE 1 LOZENGE PO (09:36)
[2023-10-24] MEDS: SERTRALINE HCL 50 MG TABLET 100 MG PO (09:37)
[2023-10-24] MEDS: ENOXAPARIN 40 MG/0.4 ML SYRINGE SUB-Q (09:37)
--- NOTE | 2023-10-24 09:58 | PM.PNPUL ---
Progress Note: A&P Assessment and Plan (1) COPD exacerbation: Code(s): J44.1 - Chronic obstructive pulmonary disease with (acute) exacerbation Status: Acute Assessment and Plan: Patient has a 28 pack year tobacco use. PFTs on 06/06/2023 with a severe obstructive abnormality with an FEV1 of 1.22 L, 41% predicted, ratio of 40%, there is air trapping and moderately decreased DLCO that normalized when adjusted for alveolar volume. CT scan of the chest does not show bullous emphysema. She has intermittent wheezing and worsening shortness of breath and hypoxemia. 10/23/23: Currently patient is on room air with saturations 94%. She has rest shortness of breath that is a little bit better since yesterday. Her dyspnea on exertion exertion is worse than yesterday. Her bed cough is better than yesterday and back to her normal. Her white blood cell count is 6.4. She has expiratory wheezes on exam. Plan: I will treat patient for potential COPD exacerbation. I will decrease this patient's Solu-Medrol to 20 mg IV q.6 hours. I will continue nebulized albuterol and ipratropium q.4 hours. Patient is being treated with a pneumonia with Levaquin. She has a cephalosporin and penicillin and sulfa and tetracycline allergy. Patient has new onset leg swelling, worsening PND and states it is easier for her to breathe when she sits more upright over the last few weeks. I will check a BNP and a cardiac echo. Later in the day patient had echocardiogram which demonstrated normal LVEF 60-65%, normal diastolic function, trace MR, trace TR, normal RV size and function, normal right atrial size. RVSP 31. 10/24/23: Patient states she continues to improve she slept well for the 1st night. She compared to her new baseline 3 weeks ago she has no rest shortness of breath. She still has dyspnea on exertion. Her cough is at her baseline as of 3 weeks ago and is dry with no hemoptysis. Patient is on room air with saturations 92%. The patient tells me she was tried on breztri which gave her eye pain and chest tightness as well as trelegy inhaler which gave her eye pain and chest tightness. Extended respiratory pathogen panel is pending. Plan: patient still has unexplained dyspnea on exertion. I will order CT angiogram of the chest to exclude PE. she has no wheezing today on Solu-Medrol 20 mg IV q.6 and DuoNebs Q 4. I will continue these today. She is using oxygen when she ambulates and she says that the oxygen does help her symptoms. I will order an overnight oximetry on room air to assess the need for nocturnal oxygen. If she is discharged over the weekend would continue: Levaquin 750 mg p.o. q.day to finish a 10 day course (through 10/31/23) Prednisone 40 mg p.o. q.day x5 days, She will ultimately need a home O2 assessment on the day of discharge. oxygen at night per overnight oximetry which I have ordered for [facility]. Goal saturation less than or equal to 88% for less than 5 minutes. I believe the patient would benefit from a trial of high dose inhaled corticosteroids, long-acting beta agonist and long-acting muscarinic antagonist. The patient tells me she was previously tried on breztri which gave her eye pain and chest tightness as well as trelegy inhaler which gave her eye pain and chest tightness. Prior to discharge she should be trialed on high-dose inhaled corticosteroids, long-acting beta agonist combination and long-acting muscarinic antagonist to ensure that she can tolerate these as an outpatient. Would place her on Advair 230-21 at 2 puffs b.i.d. and Incruse Ellipta 62.5 mcg p.o. q.day to ensure she can tolerate this combination. Inpatient Pulmonary services will resume on 10/27/2023, call with questions. Discussed with Francisca Campos (2) Pneumonia: Code(s): J18.9 - Pneumonia, unspecified organism Status: Acute Assessment and Plan: Patient has cough, congestion, wheezing, weakness with a CT scan that sh
[2023-10-24] MEDS: IPRATROPIUM 0.5 MG/ALBUTEROL SULFATE 2.5 MG AMPUL.NEB 3 ML INHALATION ×3 (11:16→20:35)
--- NOTE | 2023-10-24 13:32 | P.PNIM_ITS ---
Progress Note: A&P Assessment and Plan (1) Acute respiratory failure with hypoxia: Code(s): J96.01 - Acute respiratory failure with hypoxia Status: Acute Assessment and Plan: 10/23/2023: * Patient was hypoxic at her primary care doctor's office earlier yesterday prompting her to get an evaluation at the hospital. * Chest CT without contrast shown new airspace opacities of the right middle lobe consistent with pneumonia, scattered stable pulmonary nodules. 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 She is followed by Dr. Johnson which is her body shop supervisor * Pulmonology consulted and following * Continue Levaquin IV * Continue DuoNebs q.4 hour * Continue Solu-Medrol 60 mg IV push q.6 hour * Blood and sputum cultures are pending * Urine strep, urine Legionella, and mycoplasma were obtained and are pending * Will obtain chlamydia PCR as well * Patient reporting sore throat this morning, throat lozenges ordered * Lungs coarse with inspiratory and expiratory wheezing throughout all lung reilly bilaterally 10/24/2023: * Continue Levaquin, DuoNebs, Solu-Medrol. * Blood culture showing no growth to date on preliminary read * Sputum cultures are still pending * Lung sounds with inspiratory and expiratory wheezing throughout all lung reilly bilaterally * Pulmonology following * Plan for an ApneaLink tonight to assess time of saturation * Will need home O2 assessment before discharge (2) Pneumonia: Code(s): J18.9 - Pneumonia, unspecified organism Status: Acute Assessment and Plan: * See above plan of care (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 - Pulmonary mycobacterial infection Status: Acute Assessment and Plan: 10/23/2023: * Patient has extensive history of MAC pneumonia, see HPI for more details * See above plan of care 10/24/2023: * Full respiratory panel pending * Urine strep, urine Legionella, mycoplasma, and chlamydia are all pending * Pulmonology following (4) COPD exacerbation: Code(s): J44.1 - Chronic obstructive pulmonary disease with (acute) exacerbation Status: Acute Assessment and Plan: 10/23/2023: * Continue DuoNebs and Solu-Medrol * See above plan of care 10/24/2023: * No change to current treatment plan (5) Hypertension: Code(s): I10 - Essential (primary) hypertension Status: Acute Assessment and Plan: 10/23/2023: * Blood pressure ranging 143/69 to 160/82 * Continue metoprolol ER 25 mg 10/24/2023: * No change to current treatment plan Time Spent With Patient Time with patient: 25 - 35 minutes Subjective Date/time seen: 10/24/23 13:32 Interval history: 10/23/23: This is a 63-year-old female who presented to the hospital with chief complaint of hypoxia. Patient was at her body shop supervisor's office and did a walk test and they found that her SpO2 was dropping to the 70s. She was sent to the hospital per body shop supervisor recommendation for further workup and treatment. Workup in the hospital includes a chest CT which shown new airspace opacities of the right middle lobe consistent with pneumonia, scattered stable pulmonary nodules. EKG showing normal sinus rhythm with a rate of 95. Initial labs revealed a white blood cell count of 8.3, normal kidney function, normal liver function, otherwise unremarkable. Urine strep, urine Legionella, and mycoplasma pneumonia are all pending. Respiratory panel was negative for influenza a and B, RSV, COVID. Bl
--- NOTE | 2023-10-24 13:32 | PM.IMPN ---
Progress Note: A&P Assessment and Plan (1) Acute respiratory failure with hypoxia: Code(s): J96.01 - Acute respiratory failure with hypoxia Status: Acute Assessment and Plan: 10/23/2023: Patient was hypoxic at her primary care doctor's office earlier yesterday prompting her to get an evaluation at the hospital. Chest CT without contrast shown new airspace opacities of the right middle lobe consistent with pneumonia, scattered stable pulmonary nodules. 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 She is followed by Dr. Johnson which is her lamp wirer Pulmonology consulted and following Continue Levaquin IV Continue DuoNebs q.4 hour Continue Solu-Medrol 60 mg IV push q.6 hour Blood and sputum cultures are pending Urine strep, urine Legionella, and mycoplasma were obtained and are pending Will obtain chlamydia PCR as well Patient reporting sore throat this morning, throat lozenges ordered Lungs coarse with inspiratory and expiratory wheezing throughout all lung reilly bilaterally 10/24/2023: Continue Levaquin, DuoNebs, Solu-Medrol. 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 - Pulmonary mycobacterial infection Status: Acute Assessment and Plan: 10/23/2023: Patient has extensive history of MAC pneumonia, see HPI for more details See above plan of care 10/24/2023: Full respiratory panel pending Urine strep, urine Legionella, mycoplasma, and chlamydia are all pending Pulmonology following (4) COPD exacerbation: Code(s): J44.1 - Chronic obstructive pulmonary disease with (acute) exacerbation Status: Acute Assessment and Plan: 10/23/2023: Continue DuoNebs and Solu-Medrol See above plan of care 10/24/2023: No change to current treatment plan (5) Hypertension: Code(s): I10 - Essential (primary) hypertension Status: Acute Assessment and Plan: 10/23/2023: Blood pressure ranging 143/69 to 160/82 Continue metoprolol ER 25 mg 10/24/2023: No change to current treatment plan Time Spent With Patient Time with patient: 25 - 35 minutes Subjective Date/time seen: 10/24/23 13:32 Interval history: 10/23/23: This is a 63-year-old female who presented to the hospital with chief complaint of hypoxia. Patient was at her lamp wirer's office and did a walk test and they found that her SpO2 was dropping to the 70s. She was sent to the hospital per lamp wirer recommendation for further workup and treatment. Workup in the hospital includes a chest CT which shown new airspace opacities of the right middle lobe consistent with pneumonia, scattered stable pulmonary nodules. EKG showing normal sinus rhythm with a rate of 95. Initial labs revealed a white blood cell count of 8.3, normal kidney function, normal liver function, otherwise unremarkable. Urine strep, urine Legionella, and mycoplasma pneumonia are all pending. Respiratory panel was negative for influenza a and B, RSV, COVID. Blood and sputum cultures were obtained and are pending. Patient was given 1 L normal saline, DuoNeb, 125 mg IV push of Solu-Medrol, and started on Levaquin while in the ED. Pulmonology following. (Copied from chart) Of note, The summer she began having problems with sinus and chest congestion for which she was treated with 2 different antibiotics. She apparently had COVID around the same time as wel
[2023-10-24] MEDS: ACETAMINOPHEN 325 MG TABLET 650 MG PO (17:19)
--- NOTE | 2023-10-24 18:07 | ECG_ITS ---
Measurements Intervals [place] Rate: 103 P: 69 NH: 116 QRS: 68 QRSD: 89 T: 65 QT: 315 QTc: 412 Interpretive Statements SINUS TACHYCARDIA WITH SHORT NH INTERVAL BORDERLINE ECG COMPARED TO ECG 10/22/2023 17:20:36 SINUS TACHYCARDIA NOW PRESENT Electronically Signed On 10-24-2023 18:29:20 RESIDENT INTERN by Robb Aponte D.O.
[2023-10-24] MEDS: METOPROLOL SUCCINATE EXT REL 25 MG TABCR PO (18:14)
[2023-10-24 19:10] LABS: Basophils Percent Auto 0.1 % (0.2-1.2); Hematocrit 41.2 % (37.0-47.0); Hemoglobin 13.2 g/dL (12.0-15.0); Immature Granulocyte Absolute 0.06 K/mm3 (0.00-0.031); Immature Granulocyte Percent A 0.5 % (0-0.5); Lymphocytes Absolute Auto 0.64 K/mm3 (0.9-3.2); Lymphocytes Percent Auto 4.9 % (18.3-44.2); Mean Corpuscular Hemoglobin 29.1 pg (26-34); Mean Corpuscular Volume 90.9 fl (80-100); Mean Platelet Volume 9.6 fl (7.4-10.4); Monocytes Absolute Auto 0.7 K/mm3 (0.1-0.6); Monocytes Percent Auto 4.9 % (2.6-8.5); Neutrophils Absolute Auto 11.8 K/mm3 (1.3-6.7); Neutrophils Percent Auto 89.6 % (45.5-73.1); Platelet Count Result 477 k/mm3 (150-375); Red Blood Count 4.53 M/mm3 (4.2-5.4); Red Cell Distribution Width 13.6 % (11.5-14.5); White Blood Count 13.1 K/mm3 (4.5-10.0)
[2023-10-24 19:22] LABS: Alanine Aminotransferase 20 U/L (6-35); Albumin Level 4.3 g/dL (3.5-5.1); Alkaline Phosphatase 68 U/L (38-126); Anion Gap 10 mmol/L (8-16); Aspartate Amino Transferase 33 U/L (14-36); Bilirubin,Total 0.6 mg/dL (0.2-1.3); Blood Urea Nitrogen 19 mg/dL (7-17); Calcium 9.4 mg/dL (8.4-10.2); Carbon Dioxide 24 mmol/L (22-30); Chloride 103 mmol/L (98-107); Estimated CRCL calculation 63 ml/min; Estimated Glomerular Filt Rate > 60; Glucose 150 mg/dL (65-110); Potassium 4.2 mmol/L (3.4-5.0); Sodium 137 mmol/L (137-145)
[2023-10-24 19:33] LABS: Magnesium 2.2 mg/dL (1.6-2.3)
[2023-10-24] MEDS: levoFLOXacin 750 MG/D5W 150 ML 750 MG/150 ML BAG 100 MG IVPB (20:43)
[2023-10-25] VITALS (27 sets, daily range): BP systolic 138–159; BP diastolic 79–88; PULSE 67–115; RESP 16–22; TEMP 36.6–36.8; O2SAT 93–98
[2023-10-25] MEDS: IPRATROPIUM 0.5 MG/ALBUTEROL SULFATE 2.5 MG AMPUL.NEB 3 ML INHALATION ×7 (00:15→23:11)
[2023-10-25] MEDS: SODIUM CHLOR 3% 15 ML NEB (RESPIRATORY THERAPY) 6 ML INHALATION (04:51)
[2023-10-25] MEDS: methylPREDNISolone SOD SUCC 40 MG VIAL 20 MG IV PUSH ×4 (05:23→23:19)
[2023-10-25 05:48] LABS: Basophils Percent Auto 0.1 % (0.2-1.2); Hematocrit 44.2 % (37.0-47.0); Immature Granulocyte Absolute 0.07 K/mm3 (0.00-0.031); Immature Granulocyte Percent A 0.5 % (0-0.5); Lymphocytes Absolute Auto 0.96 K/mm3 (0.9-3.2); Lymphocytes Percent Auto 7.5 % (18.3-44.2); Mean Corpuscular HGB Conc 31.7 g/dl (32-36); Mean Corpuscular Volume 91.5 fl (80-100); Mean Platelet Volume 9.4 fl (7.4-10.4); Monocytes Absolute Auto 0.7 K/mm3 (0.1-0.6); Monocytes Percent Auto 5.7 % (2.6-8.5); Neutrophils Percent Auto 86.2 % (45.5-73.1); Platelet Count Result 475 k/mm3 (150-375); Red Blood Count 4.83 M/mm3 (4.2-5.4); Red Cell Distribution Width 13.6 % (11.5-14.5); White Blood Count 12.8 K/mm3 (4.5-10.0)
[2023-10-25 05:59] LABS: Alanine Aminotransferase 22 U/L (6-35); Albumin Level 4.6 g/dL (3.5-5.1); Alkaline Phosphatase 65 U/L (38-126); Anion Gap 8 mmol/L (8-16); Aspartate Amino Transferase 27 U/L (14-36); Bilirubin,Total 0.8 mg/dL (0.2-1.3); Blood Urea Nitrogen 16 mg/dL (7-17); Calcium 9.5 mg/dL (8.4-10.2); Carbon Dioxide 27 mmol/L (22-30); Chloride 103 mmol/L (98-107); Estimated CRCL calculation 63 ml/min; Estimated Glomerular Filt Rate > 60; Glucose 112 mg/dL (65-110); Potassium 4.2 mmol/L (3.4-5.0); Sodium 138 mmol/L (137-145)
[2023-10-25] MEDS: ENOXAPARIN 40 MG/0.4 ML SYRINGE SUB-Q (09:21)
[2023-10-25] MEDS: BENZOCAINE/MENTHOL (*BKC) 18 EA LOZENGE 1 LOZENGE PO (09:21)
[2023-10-25] MEDS: SERTRALINE HCL 50 MG TABLET 100 MG PO (09:21)
--- NOTE | 2023-10-25 10:32 | P.PNIM_ITS ---
Progress Note: A&P Assessment and Plan (1) Acute respiratory failure with hypoxia: Code(s): J96.01 - Acute respiratory failure with hypoxia Status: Acute Assessment and Plan: 10/23/2023: * Patient was hypoxic at her primary care doctor's office earlier yesterday prompting her to get an evaluation at the hospital. * Chest CT without contrast shown new airspace opacities of the right middle lobe consistent with pneumonia, scattered stable pulmonary nodules. 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 She is followed by Dr. Johnson which is her artist suspect * Pulmonology consulted and following * Continue Levaquin IV * Continue DuoNebs q.4 hour * Continue Solu-Medrol 60 mg IV push q.6 hour * Blood and sputum cultures are pending * Urine strep, urine Legionella, and mycoplasma were obtained and are pending * Will obtain chlamydia PCR as well * Patient reporting sore throat this morning, throat lozenges ordered * Lungs coarse with inspiratory and expiratory wheezing throughout all lung reilly bilaterally 10/24/2023: * Continue Levaquin, DuoNebs, Solu-Medrol. * Blood culture showing no growth to date on preliminary read * Sputum cultures are still pending * Lung sounds with inspiratory and expiratory wheezing throughout all lung reilly bilaterally * Pulmonology following * Plan for an ApneaLink tonight to assess time of saturation * Will need home O2 assessment before discharge 10/25/2023: * ApneaLink was not done last night due to equipment shortage, plan for apnea link tonight on room air * pulmonology following * sputum culture x3 is still pending * blood cultures are still showing no growth on preliminary read (2) Pneumonia: Code(s): J18.9 - Pneumonia, unspecified organism Status: Acute Assessment and Plan: * See above plan of care (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 - Pulmonary mycobacterial infection Status: Acute Assessment and Plan: 10/23/2023: * Patient has extensive history of MAC pneumonia, see HPI for more details * See above plan of care 10/24/2023: * Full respiratory panel pending * Urine strep, urine Legionella, mycoplasma, and chlamydia are all pending * Pulmonology following 10/25/2023: * full respiratory panel pending * urine strep, urine Legionella, mycoplasma, and chlamydia are all still pending * continue IV Levaquin * pulmonology following (4) COPD exacerbation: Code(s): J44.1 - Chronic obstructive pulmonary disease with (acute) exacerbation Status: Acute Assessment and Plan: 10/23/2023: * Continue DuoNebs and Solu-Medrol * See above plan of care 10/24/2023: * No change to current treatment plan (5) Hypertension: Code(s): I10 - Essential (primary) hypertension Status: Acute Assessment and Plan: 10/23/2023: * Blood pressure ranging 143/69 to 160/82 * Continue metoprolol ER 25 mg 10/24/2023: * No change to current treatment plan Time Spent With Patient Time with patient: 25 - 35 minutes Subjective Date/time seen: 10/25/23 10:32 Interval history: 10/23/23: This is a 63-year-old female who presented to the hospital with chief complaint of hypoxia. Patient was at her artist suspect's office and did a walk test and they found that her SpO2 was dropping to the 70s. She was sent to the hospital per artist suspect recommendation for further workup and treatment. Workup in t
--- NOTE | 2023-10-25 10:32 | PM.IMPN ---
Progress Note: A&P Assessment and Plan (1) Acute respiratory failure with hypoxia: Code(s): J96.01 - Acute respiratory failure with hypoxia Status: Acute Assessment and Plan: 10/23/2023: Patient was hypoxic at her primary care doctor's office earlier yesterday prompting her to get an evaluation at the hospital. Chest CT without contrast shown new airspace opacities of the right middle lobe consistent with pneumonia, scattered stable pulmonary nodules. 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 She is followed by Dr. Johnson which is her full stack engineer Pulmonology consulted and following Continue Levaquin IV Continue DuoNebs q.4 hour Continue Solu-Medrol 60 mg IV push q.6 hour Blood and sputum cultures are pending Urine strep, urine Legionella, and mycoplasma were obtained and are pending Will obtain chlamydia PCR as well Patient reporting sore throat this morning, throat lozenges ordered Lungs coarse with inspiratory and expiratory wheezing throughout all lung reilly bilaterally 10/24/2023: Continue Levaquin, DuoNebs, Solu-Medrol. Blood culture showing no growth to date on preliminary read Sputum cultures are still pending Lung sounds with inspiratory and expiratory wheezing throughout all lung reilly bilaterally Pulmonology following Plan for an ApneaLink tonight to assess time of saturation Will need home O2 assessment before discharge 10/25/2023: ApneaLink was not done last night due to equipment shortage, plan for apnea link tonight on room air pulmonology following sputum culture x3 is still pending blood cultures are still showing no growth on preliminary read (2) Pneumonia: Code(s): J18.9 - Pneumonia, unspecified organism Status: Acute Assessment and Plan: See above plan of care (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 - Pulmonary mycobacterial infection Status: Acute Assessment and Plan: 10/23/2023: Patient has extensive history of MAC pneumonia, see HPI for more details See above plan of care 10/24/2023: Full respiratory panel pending Urine strep, urine Legionella, mycoplasma, and chlamydia are all pending Pulmonology following 10/25/2023: full respiratory panel pending urine strep, urine Legionella, mycoplasma, and chlamydia are all still pending continue IV Levaquin pulmonology following (4) COPD exacerbation: Code(s): J44.1 - Chronic obstructive pulmonary disease with (acute) exacerbation Status: Acute Assessment and Plan: 10/23/2023: Continue DuoNebs and Solu-Medrol See above plan of care 10/24/2023: No change to current treatment plan (5) Hypertension: Code(s): I10 - Essential (primary) hypertension Status: Acute Assessment and Plan: 10/23/2023: Blood pressure ranging 143/69 to 160/82 Continue metoprolol ER 25 mg 10/24/2023: No change to current treatment plan Time Spent With Patient Time with patient: 25 - 35 minutes Subjective Date/time seen: 10/25/23 10:32 Interval history: 10/23/23: This is a 63-year-old female who presented to the hospital with chief complaint of hypoxia. Patient was at her full stack engineer's office and did a walk test and they found that her SpO2 was dropping to the 70s. She was sent to the hospital per full stack engineer recommendation for further workup and treatment. Workup in the hospital includes a chest CT which shown new airspace opacities of the right middle lobe consistent with pneumonia, scattered stable pulmonary nodules. EKG showing normal sinus rhythm with a rate of 95. Initial labs revealed a white blood cell count of 8.3, normal kidney function, normal liver function, otherwise unremarkable. Urine strep, urine Legionella, and mycoplasma pneumonia are all pending. Respiratory panel was negative for influenza a and B,
[2023-10-25 19:55] LABS: Adenovirus DNA Not Detected (Not Detected); Chlamydophila pneumoniae Not Detected (Not Detected); Coronavirus 229E Not Detected (Not Detected); Coronavirus HKU1 Not Detected (Not Detected); Coronavirus NL63 Not Detected (Not Detected); Coronavirus OC43 Not Detected (Not Detected); Human Metapneumovirus Not Detected (Not Detected); Human Parainfluenza Virus 1 Not Detected (Not Detected); Human Parainfluenza Virus 2 Not Detected (Not Detected); Human Parainfluenza Virus 3 Not Detected (Not Detected); Human Parainfluenza Virus 4 Not Detected (Not Detected); Human RSV B Not Detected (Not Detected); Influenza A Not Detected (Not Detected); Influenza B Not Detected (Not Detected); Mycoplasma pneumoniae Not Detected (Not Detected); Rhinovirus/Enterovirus Not Detected (Not Detected)
[2023-10-25] MEDS: levoFLOXacin 750 MG/D5W 150 ML 750 MG/150 ML BAG 100 MG IVPB (20:26)
[2023-10-25] MEDS: METOPROLOL SUCCINATE EXT REL 25 MG TABCR PO (20:26)
[2023-10-26] VITALS (20 sets, daily range): BP systolic 141–149; BP diastolic 69–73; PULSE 86–110; RESP 16–20; TEMP 36.2–36.6; O2SAT 93–96
--- NOTE | 2023-10-26 03:27 | PC.NURSE ---
Daylight Savings Time For Daylight Savings Time Ending in the Fall - Clocks are moved back. For Daylight Savings Time Beginning in the Spring - Clocks are moved ahead. For [facility], the time of change occurs at 0200 hrs. Time is taken from the senior sql server database developer. This entry on the patient's chart recognizes the change in time reflected during documentation. Example: 2 entries for vital signs may be charted for 0200 hrs.
[2023-10-26 04:25] LABS: Pneumococcal Antigen Urine Not Detected (Not Detected)
[2023-10-26] MEDS: IPRATROPIUM 0.5 MG/ALBUTEROL SULFATE 2.5 MG AMPUL.NEB 3 ML INHALATION ×5 (05:11→20:41)
[2023-10-26] MEDS: methylPREDNISolone SOD SUCC 40 MG VIAL 20 MG IV PUSH ×4 (05:21→23:45)
[2023-10-26 05:36] LABS: Basophils Percent Auto 0.1 % (0.2-1.2); Hematocrit 43.7 % (37.0-47.0); Immature Granulocyte Absolute 0.08 K/mm3 (0.00-0.031); Immature Granulocyte Percent A 0.6 % (0-0.5); Lymphocytes Absolute Auto 0.62 K/mm3 (0.9-3.2); Mean Corpuscular Hemoglobin 29.3 pg (26-34); Mean Corpuscular Volume 91.4 fl (80-100); Mean Platelet Volume 9.2 fl (7.4-10.4); Monocytes Absolute Auto 0.3 K/mm3 (0.1-0.6); Monocytes Percent Auto 2.5 % (2.6-8.5); Neutrophils Absolute Auto 11.3 K/mm3 (1.3-6.7); Neutrophils Percent Auto 91.8 % (45.5-73.1); Platelet Count Result 442 k/mm3 (150-375); Red Blood Count 4.78 M/mm3 (4.2-5.4); Red Cell Distribution Width 13.4 % (11.5-14.5); White Blood Count 12.3 K/mm3 (4.5-10.0)
[2023-10-26 05:48] LABS: Alanine Aminotransferase 30 U/L (6-35); Albumin Level 4.5 g/dL (3.5-5.1); Alkaline Phosphatase 65 U/L (38-126); Anion Gap 10 mmol/L (8-16); Aspartate Amino Transferase 25 U/L (14-36); Bilirubin,Total 0.6 mg/dL (0.2-1.3); Blood Urea Nitrogen 17 mg/dL (7-17); Calcium 9.2 mg/dL (8.4-10.2); Carbon Dioxide 26 mmol/L (22-30); Chloride 101 mmol/L (98-107); Estimated CRCL calculation 70 ml/min; Estimated Glomerular Filt Rate > 60; Glucose 134 mg/dL (65-110); Potassium 4.2 mmol/L (3.4-5.0); Sodium 137 mmol/L (137-145)
[2023-10-26] MEDS: ENOXAPARIN 40 MG/0.4 ML SYRINGE SUB-Q (09:48)
[2023-10-26] MEDS: SERTRALINE HCL 50 MG TABLET 100 MG PO (09:48)
--- NOTE | 2023-10-26 10:09 | P.PNIM_ITS ---
Progress Note: A&P Assessment and Plan (1) Acute respiratory failure with hypoxia: Code(s): J96.01 - Acute respiratory failure with hypoxia Status: Acute Assessment and Plan: 10/23/2023: * Patient was hypoxic at her primary care doctor's office earlier yesterday prompting her to get an evaluation at the hospital. * Chest CT without contrast shown new airspace opacities of the right middle lobe consistent with pneumonia, scattered stable pulmonary nodules. 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 She is followed by Dr. Johnson which is her insulation machine operator * Pulmonology consulted and following * Continue Levaquin IV * Continue DuoNebs q.4 hour * Continue Solu-Medrol 60 mg IV push q.6 hour * Blood and sputum cultures are pending * Urine strep, urine Legionella, and mycoplasma were obtained and are pending * Will obtain chlamydia PCR as well * Patient reporting sore throat this morning, throat lozenges ordered * Lungs coarse with inspiratory and expiratory wheezing throughout all lung reilly bilaterally 10/24/2023: * Continue Levaquin, DuoNebs, Solu-Medrol. * Blood culture showing no growth to date on preliminary read * Sputum cultures are still pending * Lung sounds with inspiratory and expiratory wheezing throughout all lung reilly bilaterally * Pulmonology following * Plan for an ApneaLink tonight to assess time of saturation * Will need home O2 assessment before discharge 10/25/2023: * ApneaLink was not done last night due to equipment shortage, plan for apnea link tonight on room air * pulmonology following * sputum culture x3 is still pending * blood cultures are still showing no growth on preliminary read 10/26/23: * ApneaLink last night shown 8 minutes where patient desaturated to less than 88% * we will repeat her ApneaLink tonight on 2 L nasal cannula per pulmonology recommendation * blood cultures are still showing no growth on preliminary read * acid-fast bacilli culture on 10/24/2023 is showing no growth * acid-fast bacilli culture on 10/25/2023 is still pending * continue with current treatment plan (2) Pneumonia: Code(s): J18.9 - Pneumonia, unspecified organism Status: Acute Assessment and Plan: * See above plan of care (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 - Pulmonary mycobacterial infection Status: Acute Assessment and Plan: 10/23/2023: * Patient has extensive history of MAC pneumonia, see HPI for more details * See above plan of care 10/24/2023: * Full respiratory panel pending * Urine strep, urine Legionella, mycoplasma, and chlamydia are all pending * Pulmonology following 10/25/2023: * full respiratory panel pending * urine strep, urine Legionella, mycoplasma, and chlamydia are all still pending * continue IV Levaquin * pulmonology following 10/26/2023: * urine Legionella and mycoplasma still pending, urine strep pneumoniae chlamydia pneumonia was negative * respiratory panel is starting to come back as not detected however there are still some tests that are still pending * continue IV Levaquin * pulmonology following (4) COPD exacerbation: Code(s): J44.1 - Chronic obstructive pulmonary disease with (acute) exacerbation Status: Acute Assessment and Plan: 10/23/2023: * Continue DuoNebs and Solu-Medrol * See above plan of care 10/24/2023: * No change to current treatment plan (5) Hypertension:
--- NOTE | 2023-10-26 10:09 | PM.IMPN ---
Progress Note: A&P Assessment and Plan (1) Acute respiratory failure with hypoxia: Code(s): J96.01 - Acute respiratory failure with hypoxia Status: Acute Assessment and Plan: 10/23/2023: Patient was hypoxic at her primary care doctor's office earlier yesterday prompting her to get an evaluation at the hospital. Chest CT without contrast shown new airspace opacities of the right middle lobe consistent with pneumonia, scattered stable pulmonary nodules. 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 Blood culture showing no growth to date on preliminary read Sputum cultures are still pending Lung sounds with inspiratory and expiratory wheezing throughout all lung reilly bilaterally Pulmonology following Plan for an ApneaLink tonight to assess time of saturation Will need home O2 assessment before discharge 10/25/2023: ApneaLink was not done last night due to equipment shortage, plan for apnea link tonight on room air pulmonology following sputum culture x3 is still pending blood cultures are still showing no growth on preliminary read 10/26/23: ApneaLink last night shown 8 minutes where patient desaturated to less than 88% we will repeat her ApneaLink tonight on 2 L nasal cannula per pulmonology recommendation blood cultures are still showing no growth on preliminary read acid-fast bacilli culture on 10/24/2023 is showing no growth acid-fast bacilli culture on 10/25/2023 is still pending continue with current treatment plan (2) Pneumonia: Code(s): J18.9 - Pneumonia, unspecified organism Status: Acute Assessment and Plan: See above plan of care (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 - Pulmonary mycobacterial infection Status: Acute Assessment and Plan: 10/23/2023: Patient has extensive history of MAC pneumonia, see HPI for more details See above plan of care 10/24/2023: Full respiratory panel pending Urine strep, urine Legionella, mycoplasma, and chlamydia are all pending Pulmonology following 10/25/2023: full respiratory panel pending urine strep, urine Legionella, mycoplasma, and chlamydia are all still pending continue IV Levaquin pulmonology following 10/26/2023: urine Legionella and mycoplasma still pending, urine strep pneumoniae chlamydia pneumonia was negative respiratory panel is starting to come back as not detected however there are still some tests that are still pending continue IV Levaquin pulmonology following (4) COPD exacerbation: Code(s): J44.1 - Chronic obstructive pulmonary disease with (acute) exacerbation Status: Acute Assessment and Plan: 10/23/2023: Continue DuoNebs and Solu-Medrol See above plan of care 10/24/2023: No change to current treatment plan (5) Hypertension: Code(s): I10 - Essential (primary) hypertension Status: Acute Assessment and Plan: 10/23/2023: Blood pressure ranging 143/69 to 160/82 Continue metoprolol ER 25 mg 10/24/2023: No change to current treatment plan Time Spent With Patient Time with patient: 25 - 35 minutes Subjective Date/time seen: 10/26/23 10:09 Interval history: 10/23/23: This is a 63-year-old female who presented to the hospital with chief comp
[2023-10-26] MEDS: METOPROLOL SUCCINATE EXT REL 50 MG TABCR PO (20:30)
[2023-10-26] MEDS: levoFLOXacin 750 MG/D5W 150 ML 750 MG/150 ML BAG 100 MG IVPB (20:31)
[2023-10-26] MEDS: ACETAMINOPHEN 325 MG TABLET 650 MG PO (21:20)
[2023-10-27] VITALS (25 sets, daily range): BP systolic 124–157; BP diastolic 73–86; PULSE 74–115; RESP 16–20; TEMP 36.2–36.4; O2SAT 92–98
[2023-10-27] MEDS: IPRATROPIUM 0.5 MG/ALBUTEROL SULFATE 2.5 MG AMPUL.NEB 3 ML INHALATION ×5 (04:41→19:52)
[2023-10-27 05:31] LABS: Basophils Percent Auto 0.2 % (0.2-1.2); Hematocrit 43.3 % (37.0-47.0); Hemoglobin 14.1 g/dL (12.0-15.0); Immature Granulocyte Absolute 0.09 K/mm3 (0.00-0.031); Immature Granulocyte Percent A 0.7 % (0-0.5); Lymphocytes Absolute Auto 0.72 K/mm3 (0.9-3.2); Mean Corpuscular HGB Conc 32.6 g/dl (32-36); Mean Corpuscular Hemoglobin 29.4 pg (26-34); Mean Corpuscular Volume 90.2 fl (80-100); Mean Platelet Volume 9.4 fl (7.4-10.4); Monocytes Absolute Auto 0.6 K/mm3 (0.1-0.6); Monocytes Percent Auto 5.1 % (2.6-8.5); Neutrophils Absolute Auto 10.6 K/mm3 (1.3-6.7); Platelet Count Result 433 k/mm3 (150-375); Red Cell Distribution Width 13.2 % (11.5-14.5); White Blood Count 12.1 K/mm3 (4.5-10.0)
[2023-10-27] MEDS: methylPREDNISolone SOD SUCC 40 MG VIAL 20 MG IV PUSH (05:50)
[2023-10-27 05:54] LABS: Alanine Aminotransferase 22 U/L (6-35); Albumin Level 4.1 g/dL (3.5-5.1); Alkaline Phosphatase 63 U/L (38-126); Anion Gap 4 mmol/L (8-16); Aspartate Amino Transferase 23 U/L (14-36); Bilirubin,Total 0.7 mg/dL (0.2-1.3); Blood Urea Nitrogen 20 mg/dL (7-17); Calcium 9.1 mg/dL (8.4-10.2); Carbon Dioxide 29 mmol/L (22-30); Chloride 104 mmol/L (98-107); Estimated CRCL calculation 70 ml/min; Estimated Glomerular Filt Rate > 60; Glucose 121 mg/dL (65-110); Potassium 4.2 mmol/L (3.4-5.0); Sodium 137 mmol/L (137-145)
[2023-10-27 05:59] LABS: Legionella pneumophila Ag Ur Not Detected (Not Detected)
[2023-10-27] MEDS: ENOXAPARIN 40 MG/0.4 ML SYRINGE SUB-Q (08:16)
[2023-10-27] MEDS: SERTRALINE HCL 50 MG TABLET 100 MG PO (08:16)
[2023-10-27] MEDS: CALCIUM CARBONATE (TUMS) 500 MG (200 MG ELEMENTAL) PO ×2 (10:18→17:23)
[2023-10-27] MEDS: guaiFENesin 12 HR 600 MG TABCR 1200 MG PO ×2 (11:32→21:04)
[2023-10-27] MEDS: predniSONE 20 MG TABLET 40 MG PO (11:32)
--- NOTE | 2023-10-27 11:53 | HOMEO2EVAL ---
Evaluation was performed at [facility] Home Oxygen Evaluation RC: Home Oxygen (O2) Evaluation Start: 10/27/23 10:53 Freq: ONCE Status: Active Protocol: RPE Activity Type Activity Date Activity User E-sign Co-sign Detail Recorded Client Recorded Date Recorded By Document 10/27/23 11:25 KRM [id number] 10/27/23 11:53 KRM Document 10/27/23 11:32 KRM [id number] 10/27/23 11:53 KRM 10/27/23 10/27/23 11:25 11:32 Home O2 Evaluation [Oxygen] -Test Phase Resting Exercise -Oxygen Delivery Room Air Room Air [Pulse Oximetry] -Pulse Oximetry (90-100 %) 96 93 [Pulse Rate] -Pulse Rate (60-100 beats/min) 101 H 115 H [Evaluation] -Activity Tolerance Good [Exercise] -Ambulation Distance (feet) 400 -Ambulation Distance (meters) 121.91 [Charges] -Evaluation Charges O2 Evaluation by Pulmonary
--- NOTE | 2023-10-27 11:59 | PCRCNOTE ---
Addendum entered by Kimberlyn Pinedo, [employer] 10/27/23 14:23: [employer] CALLED AND SAID PT. INSURANCE IS OUT OF NETWORK. SENT TO [facility]. CONFIRMED WITH [facility] THAT THEY ACCEPT INSURANCE. [phone] Original Note: HOME O2 EVAL COMPLETED. NO OXYGEN NEEDED AT REST AND WITH ACTIVITY. PT. NEED 2LPM NOC. SET PT. UP WITH MED [employer]OURCES [phone]
--- NOTE | 2023-10-27 12:15 | PM.PNPUL ---
Progress Note: A&P Assessment and Plan (1) COPD exacerbation: Code(s): J44.1 - Chronic obstructive pulmonary disease with (acute) exacerbation Status: Acute Assessment and Plan: Patient has a 28 pack year tobacco use. PFTs on 06/06/2023 with a severe obstructive abnormality with an FEV1 of 1.22 L, 41% predicted, ratio of 40%, there is air trapping and moderately decreased DLCO that normalized when adjusted for alveolar volume. CT scan of the chest does not show bullous emphysema. She has intermittent wheezing and worsening shortness of breath and hypoxemia. 10/23/23: Currently patient is on room air with saturations 94%. She has rest shortness of breath that is a little bit better since yesterday. Her dyspnea on exertion exertion is worse than yesterday. Her bed cough is better than yesterday and back to her normal. Her white blood cell count is 6.4. She has expiratory wheezes on exam. Plan: I will treat patient for potential COPD exacerbation. I will decrease this patient's Solu-Medrol to 20 mg IV q.6 hours. I will continue nebulized albuterol and ipratropium q.4 hours. Patient is being treated with a pneumonia with Levaquin. She has a cephalosporin and penicillin and sulfa and tetracycline allergy. Patient has new onset leg swelling, worsening PND and states it is easier for her to breathe when she sits more upright over the last few weeks. I will check a BNP and a cardiac echo. Later in the day patient had echocardiogram which demonstrated normal LVEF 60-65%, normal diastolic function, trace MR, trace TR, normal RV size and function, normal right atrial size. RVSP 31. 10/24/23: Patient states she continues to improve she slept well for the 1st night. She compared to her new baseline 3 weeks ago she has no rest shortness of breath. She still has dyspnea on exertion. Her cough is at her baseline as of 3 weeks ago and is dry with no hemoptysis. Patient is on room air with saturations 92%. The patient tells me she was tried on breztri which gave her eye pain and chest tightness as well as trelegy inhaler which gave her eye pain and chest tightness. Extended respiratory pathogen panel is pending. Plan: patient still has unexplained dyspnea on exertion. I will order CT angiogram of the chest to exclude PE. she has no wheezing today on Solu-Medrol 20 mg IV q.6 and DuoNebs Q 4. I will continue these today. She is using oxygen when she ambulates and she says that the oxygen does help her symptoms. I will order an overnight oximetry on room air to assess the need for nocturnal oxygen. Later in the day the CT angiogram of the chest with no pulmonary emboli. Improving airspace opacities right middle lobe. 10/27/23: patient states she is slowly improving. She states her cough and wheezing are 70% back to her baseline. Her dyspnea on exertion is minimally better since admission and is 20-25% back to baseline. Her wheezing has improved. She remains on room air with saturations 97%. White blood cell count is 12.1, creatinine is 0.8. She is afebrile. Patient had an overnight oximetry on 2 L with recording duration 7 hours. Average saturation 98%. low saturation 95%. Time with saturation less than or equal to 88% was 0 minutes. Oxygen Desaturation index is 0.1. Plan: Extended respiratory pathogen panel for 21 pathogens is negative. Patient is slowly improving. Today will change her IV Solu-Medrol to prednisone 40 q.day, I will add nebulized budesonide 500 mcg b.i.d.. Patient complains that her phlegm is difficult to expectorate and I will add guaifenesin 1200 mg p.o. b.i.d.. I will continue albuterol and ipratropium nebulizers q.4 hours. Continue Levaquin, day 6. If the patient is stable tomorrow will consider changing her nebulizers to inhalers with Advair and Ellipta. I believe the patient would benefit from a trial of high dose inhaled corticosteroids, long-acting beta agonist and long-acting m
--- NOTE | 2023-10-27 12:17 | PM.DS ---
DS: Admitting Diagnosis Discharge Date 10/27/23 Admitting Diagnosis Pneumonia DS: Summary Status at Discharge Cognitive/behavioral status at discharge: Alert and oriented x3 Functional status at discharge: independent ambulation Overall status at discharge: patient is progressing back to baseline Time Spent with Patient Time attestation: Total time spent providing and/or coordinating discharge services: Time spent: Greater than 30 minutes DS: Data Data Completed and Pending Labs on day of discharge: Labs from last 24 hours 10/27/23 10/23/23 05:15 00:01 WBC 12.1 H RBC 4.80 Hgb 14.1 Hct 43.3 MCV 90.2 MCH 29.4 MCHC 32.6 RDW 13.2 Plt Count 433 H MPV 9.4 Immature Gran % (Auto) 0.7 H Neut % (Auto) 88.0 H Lymph % (Auto) 6.0 L [place] % (Auto) 5.1 Eos % (Auto) 0.0 Baso % (Auto) 0.2 Lymph # (Auto) 0.72 L [place] # (Auto) 0.6 Eos # (Auto) 0.0 Baso # (Auto) 0.0 Abs Immat Gran (auto) 0.09 H Absolute Neuts (auto) 10.6 H Absolute Nucleated RBC 0.0 Nucleated RBC % 0.0 Sodium 137 Potassium 4.2 Chloride 104 Carbon Dioxide 29 Anion Gap 4 L BUN 20 H Creatinine 0.80 Estim Creat Clear Calc 70 Estimated GFR > 60 Glucose 121 H Calcium 9.1 Total Bilirubin 0.7 AST 23 ALT 22 Alkaline Phosphatase 63 Total Protein 7.0 Albumin 4.1 Ur L.pneumophila Ag Not detected Preliminary micro results at discharge 10/24/23 05:07 Acid Fast Bacilli Culture - Preliminary Sputum 10/22/23 18:27 Blood Culture - Preliminary Blood 10/22/23 18:43 Blood Culture - Preliminary Blood Discharge Plan Discharge Attending physician on discharge: Sherif Wolfe Consulting providers: Tiffanie oJhnson Discharging Clinician: Francisca Campos Anticipated Discharge Date/Time: 10/27/23 10:40 Patient Disposition: Home, Self-Care Activity: as tolerated Diet: as tolerated Patient Instructions: Antibiotic Form Patient Language: Persian Stand Alone Forms: General Discharge Information Follow-up/Referrals: Tiffanie Johnson MD [Physician] - 2 Weeks Miles Medina MD [Primary Care Provider] - 1 Week Discharge Medications: New levofloxacin 750 mg tablet 750 mg PO DAILY 5 Days Qty: 5 0RF benzonatate 200 mg capsule 200 mg PO TID PRN (Reason: cough) Qty: 30 1RF prednisone 5 mg tablet 5 mg PO DIRECTED Qty: 21 0RF Rx Instructions: see taper instructions Take 8 tabs day 1 Take 6 tabs day 2 Take 4 tabs day 3 Take 2 tabs day 4 Take 1 tab day 5 Continued sertraline 100 mg tablet 100 mg PO DAILY metoprolol succinate 25 mg tablet extended release 24 hr 25 mg PO HS albuterol sulfate [ProAir HFA] 90 mcg/actuation HFA aerosol inhaler 1 inh inhalation Q4H PRN (Reason: shortness of breath or wheezing) Qty: 6.7 3RF ipratropium bromide 0.02 % solution 2.5 ml inhalation QID PRN (Reason: shortness of breath or wheezing) Qty: 300 2RF albuterol sulfate 2.5 mg /3 mL (0.083 %) solution for nebulization 2.5 mg inhalation Q4-6H PRN (Reason: shortness of breath or wheezing) Qty: 180 3RF Date of admission: 10/26/23 12:44 Primary Care Provider: Miles Medina Admitting Provider: Makenna Montano V. Attending physician on admission: Makenna Montano V. Condition: Improved
--- NOTE | 2023-10-27 13:49 | P.PNIM_ITS ---
Progress Note: A&P Assessment and Plan (1) Acute respiratory failure with hypoxia: Code(s): J96.01 - Acute respiratory failure with hypoxia Status: Acute Assessment and Plan: 10/23/2023: * Patient was hypoxic at her primary care doctor's office earlier yesterday prompting her to get an evaluation at the hospital. * Chest CT without contrast shown new airspace opacities of the right middle lobe consistent with pneumonia, scattered stable pulmonary nodules. 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 * Blood culture showing no growth to date on preliminary read * Sputum cultures are still pending * Lung sounds with inspiratory and expiratory wheezing throughout all lung reilly bilaterally * Pulmonology following * Plan for an ApneaLink tonight to assess time of saturation * Will need home O2 assessment before discharge 10/25/2023: * ApneaLink was not done last night due to equipment shortage, plan for apnea link tonight on room air * pulmonology following * sputum culture x3 is still pending * blood cultures are still showing no growth on preliminary read 10/26/23: * ApneaLink last night shown 8 minutes where patient desaturated to less than 88% * we will repeat her ApneaLink tonight on 2 L nasal cannula per pulmonology recommendation * blood cultures are still showing no growth on preliminary read * acid-fast bacilli culture on 10/24/2023 is showing no growth * acid-fast bacilli culture on 10/25/2023 is still pending * continue with current treatment plan 10/27/23: * Apnea link on 2L did not show any desaturations less than 88%. She was set up with home O2 for nightly use. * Home O2 eval shown that she tolerated the 6 minute walk without any desaturations on room air. 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 - Pulmonary mycobacterial infection Status: Acute Assessment and Plan: 10/23/2023: * Patient has extensive history of MAC pneumonia, see HPI for more details * See above plan of care 10/24/2023: * Full respiratory panel pending * Urine strep, urine Legionella, mycoplasma, and chlamydia are all pending * Pulmonology following 10/25/2023: * full respiratory panel pending * urine strep, urine Legionella, mycoplasma, and chlamydia are all still pending * continue IV Levaquin * pulmonology following 10/26/2023: * urine Legionella and mycoplasma still pending, urine strep pneumoniae chlamydia pneumonia was negative * respiratory panel is starting to come back as
--- NOTE | 2023-10-27 13:49 | PM.IMPN ---
Progress Note: A&P Assessment and Plan (1) Acute respiratory failure with hypoxia: Code(s): J96.01 - Acute respiratory failure with hypoxia Status: Acute Assessment and Plan: 10/23/2023: Patient was hypoxic at her primary care doctor's office earlier yesterday prompting her to get an evaluation at the hospital. Chest CT without contrast shown new airspace opacities of the right middle lobe consistent with pneumonia, scattered stable pulmonary nodules. 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 Blood culture showing no growth to date on preliminary read Sputum cultures are still pending Lung sounds with inspiratory and expiratory wheezing throughout all lung reilly bilaterally Pulmonology following Plan for an ApneaLink tonight to assess time of saturation Will need home O2 assessment before discharge 10/25/2023: ApneaLink was not done last night due to equipment shortage, plan for apnea link tonight on room air pulmonology following sputum culture x3 is still pending blood cultures are still showing no growth on preliminary read 10/26/23: ApneaLink last night shown 8 minutes where patient desaturated to less than 88% we will repeat her ApneaLink tonight on 2 L nasal cannula per pulmonology recommendation blood cultures are still showing no growth on preliminary read acid-fast bacilli culture on 10/24/2023 is showing no growth acid-fast bacilli culture on 10/25/2023 is still pending continue with current treatment plan 10/27/23: Apnea link on 2L did not show any desaturations less than 88%. She was set up with home O2 for nightly use. Home O2 eval shown that she tolerated the 6 minute walk without any desaturations on room air. 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 - Pulmonary mycobacterial infection Status: Acute Assessment and Plan: 10/23/2023: Patient has extensive history of MAC pneumonia, see HPI for more details See above plan of care 10/24/2023: Full respiratory panel pending Urine strep, urine Legionella, mycoplasma, and chlamydia are all pending Pulmonology following 10/25/2023: full respiratory panel pending urine strep, urine Legionella, mycoplasma, and chlamydia are all still pending continue IV Levaquin pulmonology following 10/26/2023: urine Legionella and mycoplasma still pending, urine strep pneumoniae chlamydia pneumonia was negative respiratory panel is starting to come back as not detected however there are still some tests that are still pending continue IV Levaquin pulmonology following 10/27/23: Urine legionella negative, mycoplama is still pending Immunology labs are now pending. switch to oral Levaquin Continue prednisone Pulmonology following (4) COPD exacerbation: Code(s): J44.1 - Chronic obstructive pulmonary disease with (acute) exacerbation Status: Acute Assessme
[2023-10-27] MEDS: BUDESONIDE RESPULE NEB 0.5 MG/2 ML AMP INHALATION (19:52)
[2023-10-27] MEDS: METOPROLOL SUCCINATE EXT REL 50 MG TABCR PO (21:04)
[2023-10-27] MEDS: levoFLOXacin 750 MG/D5W 150 ML 750 MG/150 ML BAG 100 MG IVPB (21:04)
[2023-10-27] MEDS: BELLADONNA ALK/PHENOB ELIX 10 ML, MAG HYDROX/ALUMINUM HYD/SIMETH 30 ML, LIDOCAINE HCL 2... PO (21:13)
[2023-10-28] VITALS (14 sets, daily range): BP systolic 139–156; BP diastolic 64–82; PULSE 69–108; RESP 18–20; TEMP 36.1–36.2; O2SAT 93–96
--- NOTE | 2023-10-28 01:23 | PCRCNOTE ---
Patient's 0000 updraft treatment was not administered due to pt being on an overnight pulse oximetry study. Treatment to resume at 0400.
[2023-10-28] MEDS: IPRATROPIUM 0.5 MG/ALBUTEROL SULFATE 2.5 MG AMPUL.NEB 3 ML INHALATION ×2 (04:18→07:23)
[2023-10-28 05:55] LABS: Basophils Percent Auto 0.1 % (0.2-1.2); Eosinophils Percent Auto 0.3 % (0-4.4); Hematocrit 44.8 % (37.0-47.0); Hemoglobin 14.4 g/dL (12.0-15.0); Immature Granulocyte Absolute 0.05 K/mm3 (0.00-0.031); Immature Granulocyte Percent A 0.5 % (0-0.5); Lymphocytes Absolute Auto 1.64 K/mm3 (0.9-3.2); Mean Corpuscular HGB Conc 32.1 g/dl (32-36); Mean Corpuscular Hemoglobin 29.2 pg (26-34); Mean Corpuscular Volume 90.9 fl (80-100); Mean Platelet Volume 9.2 fl (7.4-10.4); Monocytes Absolute Auto 0.9 K/mm3 (0.1-0.6); Monocytes Percent Auto 8.5 % (2.6-8.5); Neutrophils Absolute Auto 7.7 K/mm3 (1.3-6.7); Neutrophils Percent Auto 74.6 % (45.5-73.1); Platelet Count Result 410 k/mm3 (150-375); Red Blood Count 4.93 M/mm3 (4.2-5.4); Red Cell Distribution Width 13.3 % (11.5-14.5); White Blood Count 10.3 K/mm3 (4.5-10.0)
[2023-10-28 06:05] LABS: Alanine Aminotransferase 20 U/L (6-35); Alkaline Phosphatase 59 U/L (38-126); Anion Gap 6 mmol/L (8-16); Aspartate Amino Transferase 18 U/L (14-36); Bilirubin,Total 0.9 mg/dL (0.2-1.3); Blood Urea Nitrogen 21 mg/dL (7-17); Calcium 9.2 mg/dL (8.4-10.2); Carbon Dioxide 30 mmol/L (22-30); Chloride 101 mmol/L (98-107); Estimated CRCL calculation 63 ml/min; Estimated Glomerular Filt Rate > 60; Glucose 88 mg/dL (65-110); Potassium 3.9 mmol/L (3.4-5.0); Sodium 137 mmol/L (137-145)
[2023-10-28] MEDS: BUDESONIDE RESPULE NEB 0.5 MG/2 ML AMP INHALATION (07:23)
[2023-10-28] MEDS: predniSONE 20 MG TABLET 40 MG PO (08:17)
[2023-10-28] MEDS: ENOXAPARIN 40 MG/0.4 ML SYRINGE SUB-Q (08:17)
[2023-10-28] MEDS: SERTRALINE HCL 50 MG TABLET 100 MG PO (08:17)
[2023-10-28] MEDS: levoFLOXacin 750 MG TABLET PO (08:17)
[2023-10-28] MEDS: guaiFENesin 12 HR 600 MG TABCR 1200 MG PO ×2 (08:17→20:55)
--- NOTE | 2023-10-28 08:40 | P.PNIM_ITS ---
Progress Note: A&P Assessment and Plan (1) Acute respiratory failure with hypoxia: Code(s): J96.01 - Acute respiratory failure with hypoxia Status: Acute Assessment and Plan: 10/23/2023: * Patient was hypoxic at her primary care doctor's office earlier yesterday prompting her to get an evaluation at the hospital. * Chest CT without contrast shown new airspace opacities of the right middle lobe consistent with pneumonia, scattered stable pulmonary nodules. 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 * Blood culture showing no growth to date on preliminary read * Sputum cultures are still pending * Lung sounds with inspiratory and expiratory wheezing throughout all lung reilly bilaterally * Pulmonology following * Plan for an ApneaLink tonight to assess time of saturation * Will need home O2 assessment before discharge 10/25/2023: * ApneaLink was not done last night due to equipment shortage, plan for apnea link tonight on room air * pulmonology following * sputum culture x3 is still pending * blood cultures are still showing no growth on preliminary read 10/26/23: * ApneaLink last night shown 8 minutes where patient desaturated to less than 88% * we will repeat her ApneaLink tonight on 2 L nasal cannula per pulmonology recommendation * blood cultures are still showing no growth on preliminary read * acid-fast bacilli culture on 10/24/2023 is showing no growth * acid-fast bacilli culture on 10/25/2023 is still pending * continue with current treatment plan 10/27/23: * Apnea link on 2L did not show any desaturations less than 88%. She was set up with home O2 for nightly use. * Home O2 eval shown that she tolerated the 6 minute walk without any desaturations on room air. * Blood cultures still showing no growth on preliminary read * Sputum cultures are still pending final results * Pulmonology following and recommending a few more inpatient days * Levaquin switched to po * Continue prednisone 10/28/23: * blood culture showing no growth on final read * sputum cultures are still pending * Pulmonology started Trelegy inhaler today, if she does well on that Dr. Jolly will bring her samples to go home with. 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
--- NOTE | 2023-10-28 08:40 | PM.IMPN ---
Progress Note: A&P Assessment and Plan (1) Acute respiratory failure with hypoxia: Code(s): J96.01 - Acute respiratory failure with hypoxia Status: Acute Assessment and Plan: 10/23/2023: Patient was hypoxic at her primary care doctor's office earlier yesterday prompting her to get an evaluation at the hospital. Chest CT without contrast shown new airspace opacities of the right middle lobe consistent with pneumonia, scattered stable pulmonary nodules. 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 She is followed by Dr. Johnson which is her chair installer Pulmonology consulted and following Continue Levaquin IV Continue DuoNebs q.4 hour Continue Solu-Medrol 60 mg IV push q.6 hour Blood and sputum cultures are pending Urine strep, urine Legionella, and mycoplasma were obtained and are pending Will obtain chlamydia PCR as well Patient reporting sore throat this morning, throat lozenges ordered Lungs coarse with inspiratory and expiratory wheezing throughout all lung reilly bilaterally 10/24/2023: Continue Levaquin, DuoNebs, Solu-Medrol. Blood culture showing no growth to date on preliminary read Sputum cultures are still pending Lung sounds with inspiratory and expiratory wheezing throughout all lung reilly bilaterally Pulmonology following Plan for an ApneaLink tonight to assess time of saturation Will need home O2 assessment before discharge 10/25/2023: ApneaLink was not done last night due to equipment shortage, plan for apnea link tonight on room air pulmonology following sputum culture x3 is still pending blood cultures are still showing no growth on preliminary read 10/26/23: ApneaLink last night shown 8 minutes where patient desaturated to less than 88% we will repeat her ApneaLink tonight on 2 L nasal cannula per pulmonology recommendation blood cultures are still showing no growth on preliminary read acid-fast bacilli culture on 10/24/2023 is showing no growth acid-fast bacilli culture on 10/25/2023 is still pending continue with current treatment plan 10/27/23: Apnea link on 2L did not show any desaturations less than 88%. She was set up with home O2 for nightly use. Home O2 eval shown that she tolerated the 6 minute walk without any desaturations on room air. Blood cultures still showing no growth on preliminary read Sputum cultures are still pending final results Pulmonology following and recommending a few more inpatient days Levaquin switched to po Continue prednisone 10/28/23: blood culture showing no growth on final read sputum cultures are still pending Pulmonology started Trelegy inhaler today, if she does well on that Dr. Jolly will bring her samples to go home with. no change to current treatment plan (2) Pneumonia: Code(s): J18.9 - Pneumonia, unspecified organism Status: Acute Assessment and Plan: See above plan of care (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 - Pulmonary mycobacterial infection Status: Acute Assessment and Plan: 10/23/2023: Patient has extensive history of MAC pneumonia, see HPI for more details See above plan of care 10/24/2023: Full respiratory panel pending Urine strep, urine Legionella, mycoplasma, and chlamydia are all pending Pulmonology following 10/25/2023: full respiratory panel pending urine strep, urine Legionella, mycoplasma, and chlamydia are all still pending continue IV Levaquin pulmonology following 10/26/2023: urine Legionella and mycoplasma still pending, urine strep pneumoniae chlamydia pneumonia was negative respiratory panel is starting to come back as not detected however there are still some tests that are still pending continue IV Levaquin pulmonology following 10/27/23: Urine legionella negative, mycoplasma is still pendi
[2023-10-28] MEDS: FLUTICASONE/UMECLIDIN/VILANTER 200-62.5-25 MCG ELLIPTA 1 PUFF INHALATION (10:21)
--- NOTE | 2023-10-28 10:29 | P.PNPL_ITS ---
Progress Note: A&P Assessment and Plan (1) COPD exacerbation: Code(s): J44.1 - Chronic obstructive pulmonary disease with (acute) exacerbation Status: Acute Assessment and Plan: Patient has a 28 pack year tobacco use. PFTs on 06/06/2023 with a severe obstructive abnormality with an FEV1 of 1.22 L, 41% predicted, ratio of 40%, there is air trapping and moderately decreased DLCO that normalized when adjus yogesh for alveolar volume. CT scan of the chest does not show bullous emphysema. She has intermittent wheezing and worsening shortness of breath and hypoxemia. 10/23/23: Currently patient is on room air with saturations 94%. She has rest shortness of breath that is a little bit better since yesterday. Her dyspnea on exertion exertion is worse than yesterday. Her bed cough is better than yesterday and back to her normal. Her white blood cell count is 6.4. She has expiratory wheezes on exam. Plan: I will treat patient for potential COPD exacerbation. I will decrease this patient's Solu-Medrol to 20 mg IV q.6 hours. I will continue nebulized albuterol and ipratropium q.4 hours. Patient is being treated with a pneumonia with Levaquin. She has a cephalosporin and penicillin and sulfa and tetracycline allergy. Patient has new onset leg swelling, worsening PND and states it is easier for her to breathe when she sits more upright over the last few weeks. I will check a BNP and a cardiac echo. Later in the day patient had echocardiogram which demonstrated normal LVEF 60- 65%, normal diastolic function, trace MR, trace TR, normal RV size and function, normal right atrial size. RVSP 31. 10/24/23: Patient states she continues to improve she slept well for the 1st night. She compared to her new baseline 3 weeks ago she has no rest shortness of breath. She still has dyspnea on exertion. Her cough is at her baseline as of 3 weeks ago and is dry with no hemoptysis. Patient is on room air with saturations 92%. The patient tells me she was tried on breztri which gave her eye pain and chest tightness as well as trelegy inhaler which gave her eye pain and chest tightness. Extended respiratory pathogen panel is pending. Plan: patient still has unexplained dyspnea on exertion. I will order CT angiogram of the chest to exclude PE. she has no wheezing today on Solu-Medrol 20 mg IV q.6 and DuoNebs Q 4. I will continue these today. She is using oxygen when she ambulates and she says that the oxygen does help her symptoms. I will order an overnight oximetry on room air to assess the need for nocturnal oxygen. Later in the day the CT angiogram of the chest with no pulmonary emboli. Improving airspace opacities right middle lobe. 10/27/23: patient states she is slowly improving. She states her cough and wheezing are 70% back to her baseline. Her dyspnea on exertion is minimally better since admission and is 20-25% back to baseline. Her wheezing has improved. She remains on room air with saturations 97%. White blood cell count is 12.1, creatinine is 0.8. She is afebrile. Patient had an overnight oximetry on 2 L with recording duration 7 hours. Average saturation 98%. low saturation 95%. Time with saturation less than or equal to 88% was 0 minutes. Oxygen Desaturation index is 0.1. Plan: Extended respiratory pathogen panel for 21 pathogens is negative. Patient is slowly improving. Today will change her IV Solu-Medrol to prednisone 40 q.day, I will add nebulized budesonide 500 mcg b.i.d.. Patient complains that her phlegm is difficult to expectorate and I will add guaifenesin 1200 mg p.o. b.i.d.. I will continue albuterol and ipratropium nebulizers q.4 hours. Continue Levaquin, day 6. If the patient
[2023-10-28 12:57] LABS: Mycoplasma IgM Antibody Titer 160 U/mL (<770)
[2023-10-28] MEDS: ACETAMINOPHEN 325 MG TABLET 650 MG PO (18:20)
[2023-10-28 19:45] LABS: ANA Cascade Screen Negative (Negative)
[2023-10-28] MEDS: METOPROLOL SUCCINATE EXT REL 50 MG TABCR PO (20:55)
[2023-10-28] MEDS: BENZOCAINE/MENTHOL (*BKC) 18 EA LOZENGE 1 LOZENGE PO (20:56)
[2023-10-29] VITALS (7 sets, daily range): BP systolic 126–135; BP diastolic 60–71; PULSE 67–82; RESP 16–20; TEMP 36.2–36.9; O2SAT 94–98
[2023-10-29 06:05] LABS: Basophils Percent Auto 0.1 % (0.2-1.2); Eosinophils Absolute Auto 0.1 K/mm3 (0-0.3); Eosinophils Percent Auto 1.1 % (0-4.4); Hematocrit 43.2 % (37.0-47.0); Hemoglobin 13.7 g/dL (12.0-15.0); Immature Granulocyte Absolute 0.07 K/mm3 (0.00-0.031); Immature Granulocyte Percent A 0.7 % (0-0.5); Lymphocytes Absolute Auto 2.15 K/mm3 (0.9-3.2); Mean Corpuscular HGB Conc 31.7 g/dl (32-36); Mean Corpuscular Hemoglobin 28.7 pg (26-34); Mean Corpuscular Volume 90.6 fl (80-100); Mean Platelet Volume 9.6 fl (7.4-10.4); Monocytes Absolute Auto 0.8 K/mm3 (0.1-0.6); Monocytes Percent Auto 8.7 % (2.6-8.5); Neutrophils Absolute Auto 6.2 K/mm3 (1.3-6.7); Neutrophils Percent Auto 66.4 % (45.5-73.1); Platelet Count Result 396 k/mm3 (150-375); Red Blood Count 4.77 M/mm3 (4.2-5.4); Red Cell Distribution Width 13.2 % (11.5-14.5); White Blood Count 9.4 K/mm3 (4.5-10.0)
[2023-10-29 06:16] LABS: Alanine Aminotransferase 19 U/L (6-35); Albumin Level 3.5 g/dL (3.5-5.1); Alkaline Phosphatase 55 U/L (38-126); Anion Gap 4 mmol/L (8-16); Aspartate Amino Transferase 20 U/L (14-36); Bilirubin,Total 0.9 mg/dL (0.2-1.3); Blood Urea Nitrogen 23 mg/dL (7-17); Calcium 8.6 mg/dL (8.4-10.2); Carbon Dioxide 29 mmol/L (22-30); Chloride 102 mmol/L (98-107); Estimated CRCL calculation 63 ml/min; Estimated Glomerular Filt Rate > 60; Glucose 83 mg/dL (65-110); Potassium 3.7 mmol/L (3.4-5.0); Sodium 135 mmol/L (137-145)
[2023-10-29 07:57] LABS: Aldolase 8.8 U/L (<=8.1)
[2023-10-29] MEDS: SERTRALINE HCL 50 MG TABLET 100 MG PO (08:14)
[2023-10-29] MEDS: guaiFENesin 12 HR 600 MG TABCR 1200 MG PO (08:14)
[2023-10-29] MEDS: ENOXAPARIN 40 MG/0.4 ML SYRINGE SUB-Q (08:14)
[2023-10-29] MEDS: predniSONE 20 MG TABLET 40 MG PO (08:14)
[2023-10-29] MEDS: FLUTICASONE/UMECLIDIN/VILANTER 200-62.5-25 MCG ELLIPTA 1 PUFF INHALATION (08:34)
--- NOTE | 2023-10-29 13:41 | PM.DS ---
DS: Admitting Diagnosis Discharge Date 10/29/23 Admitting Diagnosis hypoxia DS: Discharge Diagnosis Discharge Diagnosis (1) Acute respiratory failure with hypoxia: Code(s): J96.01 - Acute respiratory failure with hypoxia Status: Acute Assessment and Plan: Chest CT without contrast shown new airspace opacities of the right middle lobe consistent with pneumonia, scattered stable pulmonary nodules. She is followed by Dr. Johnson which is her manager transmission s/p Levaquin transitioned to prednisone PO Blood and sputum cultures are pending Urine strep, urine Legionella, and mycoplasma were obtained and are pending chlamydia PCR negative ApneaLink on 2L did not show any desaturations less than 88%. She was set up with home O2 for nightly use. Home O2 eval shown that she tolerated the 6 minute walk without any desaturations on room air. Pulmonology started Trelegy inhaler (2) Pneumonia: Code(s): J18.9 - Pneumonia, unspecified organism Status: Acute Assessment and Plan: See above plan of care (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 - Pulmonary mycobacterial infection Status: Acute Assessment and Plan: Urine legionella negative, mycoplasma is still pending Immunology labs are now pending. switch to oral Levaquin Continue prednisone Pulmonology following (4) COPD exacerbation: Code(s): J44.1 - Chronic obstructive pulmonary disease with (acute) exacerbation Status: Chronic (5) Hypertension: Code(s): I10 - Essential (primary) hypertension Status: Chronic Assessment and Plan: Continue metoprolol ER 25 mg DS: Summary Hospital Course Hospital Course: Patient is a 63-year-old female admitted for hypoxia. Patient was at her manager transmission's office and did a walk test and they found that her SpO2 was dropping to the 70s. She was sent to the hospital per manager transmission recommendation for further workup and treatment. Workup in the hospital includes a chest CT which shown new airspace opacities of the right middle lobe consistent with pneumonia, scattered stable pulmonary nodules. EKG showing normal sinus rhythm with a rate of 95. Initial labs revealed a white blood cell count of 8.3, normal kidney function, normal liver function, otherwise unremarkable. Urine strep, urine Legionella, and mycoplasma pneumonia are all pending. Respiratory panel was negative for influenza a and B, RSV, COVID. Blood and sputum cultures were obtained and are pending. Patient was given 1 L normal saline, DuoNeb, 125 mg IV push of Solu-Medrol, and started on Levaquin while in the ED. Pulmonology following. (Copied from chart) Of note, The summer she began having problems with sinus and chest congestion for which she was treated with 2 different antibiotics. She apparently had COVID around the same time as well. Since that time she has had troubles with intermittent productive cough and shortness of breath with exertion. Last spring she was walking 4 miles per day, several times per week, and she can do that no longer. Pulmonary function tests in May 2023 showed severe obstructive abnormality with evidence of air trapping and hyperinflation. She was prescribed a rescue inhaler and Breztri and was referred to pulmonology for further evaluation. Chest CT at the end of May 2023 showed mild biapical scarring, central lobar nodules up to 5 mm in the left lower lobe, and likely mild infection. She was treated with antibiotics and a prednisone taper with orders for repeat CT in 3 months. Sputum for culture, fungal culture, and AFB were also ordered and 3 separate sputum cultures grew MAC for which she completed 3 rounds of antibiotics. Sensitivities obtained at the beginning of August showed susceptibility to inhaled liposomal amikacin and clarithromycin and resistant to everything else. She was referred to infectious disease specialist at [facility]
[2023-10-29 15:27] LABS: ANCA Screen Negative (Negative)
[2023-10-29 20:12] LABS: Alpha-1-Antitrypsin, QN 162 mg/dL (83-199)
[2023-10-29 20:16] LABS: Anti Cyclic Citrullinated Pept <16 Units (<20)
[2023-10-30 14:32] LABS: JO-1 AB <11 SI (<11); MI-2 Alpha Ab <11 SI (<11); MI-2 Beta Ab <11 SI (<11); NXP-2 AB <11 SI (<11); TIF1 Gamma Ab <11 SI (<11)
[2023-11-01 16:52] LABS: Aspergillus fumigatus NEGATIVE (NEGATIVE)
== END 2023-10-29 16:10 | disposition home or self-care (01) | DRG 193 ==
LOC: ANHED 18:15 → ANH3MED 20:53
PROVIDERS: Internal Medicine; Internal Medicine Pulmonary Disease; Nurse Practitioner Acute Care; Physician Assistant; Admitting Provider Internal Medicine; Emergency Provider Emergency Medicine; PCP Family Medicine; Visit Provider Nurse Practitioner
DX: J18.9 Pneumonia, unspecified organism (principal); J96.01 Acute respiratory failure with hypoxia; J44.1 Chronic obstructive pulmonary disease with (acute) exacerbation; A31.0 Pulmonary mycobacterial infection; E78.2 Mixed hyperlipidemia; I10 Essential (primary) hypertension; L40.9 Psoriasis, unspecified; Z20.822 Contact with and (suspected) exposure to COVID-19; Z87.891 Personal history of nicotine dependence; Z88.0 Allergy status to penicillin; Z90.49 Acquired absence of other specified parts of digestive tract; Z86.16 Personal history of COVID-19
CPT/HCPCS: 36415; 71045; 71275; 80048; 80053; 82085; 82103; 82104; 82550; 83735; 83880; 84182; 85025; 85027; 86036; 86038; 86200; 86225; 86235; 86364; 86430; 86738; 87015; 87040; 87070; 87116; 87118; 87205; 87206; 87449; 87633; 87637; 87899; 93005; 93306; 94618; 94640; 94762; 96361; 96366; 96372; 96374; 96375; 96376; 99285; A9270; G0378; J1650; J1956; J2920; J2930; J7030; J7512; Q9967

== ENCOUNTER 2024-06-21 13:30 | Outpatient (CLI) | payer BC, SELFPAY | END 2024-06-21 13:31 | disposition home or self-care (01) | LOC: ANHPFT 13:31 | PROVIDERS: PCP Family Medicine; Visit Provider Internal Medicine Critical Care Medicine | DX: J44.9 Chronic obstructive pulmonary disease, unspecified (principal) | CPT/HCPCS: 94060; 94726; 94729 ==

== ENCOUNTER 2025-02-26 11:03 | Inpatient (IN) | payer MEDICARE, BC, SELFPAY ==
[2025-02-26] VITALS (24 sets, daily range): BP systolic 106–173; BP diastolic 49–84; PULSE 92–124; RESP 14–25; TEMP 36.4–37; O2SAT 94–100
--- NOTE | ~2025-02-26 | XR_ITS ---
EXAMINATION: XR chest 1V portable DATE: 02/26/2025 12:25 INDICATION: COPD. MAC. TECHNIQUE: frontal view of the chest was obtained. COMPARISON: Chest radiograph dated 10/23/2023 FINDINGS: The lungs remain clear with no focal airspace opacities, pulmonary edema, pleural effusion or pneumot horax. The cardiomediastinal silhouette is normal. Visualized bones and soft tissues are unremarkable . IMPRESSION: 1. No acute cardiopulmonary disease. Reviewed, dictated and finalized at location A.
--- NOTE | ~2025-02-26 | CT_ITS ---
CT diagnostic chest [facility] [place] Ordering provider: Gael Dash MD History: 64 years Female with . Dyspnea, Tachycardia . Comparison: November 03, 2023 Technique: CT chest without IV contrast.Radiation reduction technique utilized. The dose-length produ ct was 2 0.73 mGy-cm. FINDINGS: VISUALIZED THORACIC INLET: Normal. MEDIASTINUM: Aorta/coronary arteries: Mild atheromatous disease. Heart/other: The heart is not enlarged. Lymph nodes: No mediastinal or hilar adenopathy. Small mediastinal lymph nodes are noted. LUNGS: Focal density in the middle lobe which is most likely fibrotic is again demonstrated No pulmon jocelyn nodules or masses. No infiltrates or effusions. No pneumothorax. VISUALIZED UPPER ABDOMEN: Status post cholecystectomy. Small sliding hiatus hernia. Otherwise, the vi sualized upper abdomen is normal. MUSCULOSKELETAL: Soft tissues: The superficial soft tissues are normal. Bones: Age appropriate degenerative changes of the spine. IMPRESSION: 1. No acute cardiopulmonary pathology. 2. Small sliding hiatus hernia. Reviewed, dictated and finalized at location A.
--- NOTE | ~2025-02-26 | CT_ITS ---
CT brain wo con Ordering provider: Gael Dash MD History: 64 years Female with . Headache . Comparison: November 28, 2005 Technique: CT of the head without contrast. Radiation reduction technique utilized. The dose-length p roduct was 756.67 mGy-cm. FINDINGS: BRAIN PARENCHYMA AND CSF SPACES: Mild leukoaraiosis and diffuse cortical atrophy. Mild atheromatous d isease. Mild dilatation of the lateral ventricles. No dilatation of the fourth ventricle is seen. No midline shift, mass effect or hemorrhage. The brain parenchyma and CSF spaces are otherwise normal. VISUALIZED PARANASAL SINUSES: Bilateral maxillary sinus disease. Bilateral ethmoid sinus disease. Oth erwise, Well aerated. MASTOIDS: Well aerated. BONES: The bones appear intact. SOFT TISSUES: Visualized nasopharynx is normal. Superficial soft tissues are normal. IMPRESSION: No acute intracranial findings. Slight dilatation of the lateral ventricles. Follow-up advised. Reviewed, dictated and finalized at location A.
--- OUTSIDE RECORDS SUMMARY | 2025-02-26 11:06 | XMS_ITS | Referral Summary ---
Author Organization 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 Name Role Phone Miles Medina MD Primary Care Provider [phone] Encounters Date Type Department Care Team Description 02/04/2025 11:06 AM CDT - 02/04/2025 11:59 PM CDT Hospital Encounter [facility] [address] [place] [phone] Pulmonary mycobacterial infection (HCC); Bronchiectasis without complication (HCC) Discharge Disposition: Discharge to home or self care 01/19/2025 Telephone [facility] Infectious Diseases [address] [place] [phone] Yasmeen Loera CMA 01/18/2025 10:28 AM CDT - 01/18/2025 11:59 PM CDT Hospital Encounter [facility] [address] [place] [address] Discharge Disposition: Discharge to home or self care 01/18/2025 Orders Only [facility] Infectious Diseases [address] [place] [address] [phone] Chiquita Delarosa NP Pulmonary mycobacterial infection (HCC) (Primary Dx) 01/18/2025 9:20 AM CDT Office Visit [facility] Infectious Diseases [address] [place] [phone] Chiquita Delarosa NP Pulmonary mycobacterial infection (HCC) (Primary Dx); Bronchiectasis without complication (HCC); Encounter for long-term (current) use of antibiotics from Last 3 Months Allergies Active Allergy Reactions Criticality Noted Date Comments Ampicillin Diarrhea,Rash,Vomiting Medium 11/30/2021 Sulfa (Sulfonamide Antibiotics) Hives,Diarrhea,Vomiting Medium 11/30/2021 Tetracycline Diarrhea,Rash,Vomiting Medium 11/30/2021 Medications albuterol 2.5 mg /3 mL (0.083 %) nebulizer solution 4 Active Breztri Aerosphere 160-9-4.8 mcg/actuation inhaler Inhale 2 puffs 2 (two) times a day 4 Active metoprolol XL (TOPROL-XL) 50 mg extended release tablet 4 Active sertraline (ZOLOFT) 100 mg tablet 4 Active sodium chloride 3 % nebulizer solutionIndicat ions:Mycobacter ium avium complex (HCC) USE 4 ML IN NEBULIZER TWICE DAILY 240 mL 5 Active azithromycin (ZITHROMAX) 500 mg tabletIndicatio ns:Mycobacterio sis Take 1 tablet (500 mg total) by mouth 3 (three) times a week 12 tablet 6 5 Active rifabutin (MYCOBUTIN) 150 mg capsule Take 2 capsules (300 mg total) by mouth 3 (three) times a week 24 capsule 6 5 Active ethambutoL (MYAMBUTOL) 400 mg tabletIndicatio ns:Mycobacterio sis Take 4.5 tablets (1,800 mg total) by mouth 3 (three) times a week 54 tablet 6 5 Active Active Problems Problem Noted Date Diagnosed Date Bronchiectasis without complication 02/03/2025 Encounter for screening exam ination for sexually transmitted disease 10/12/2024 Encounter for long-term (current) use of antibio tics 03/02/2024 Pulmonary mycobacterial infection 11/26/2023 Assessment & Plan (02/17/2024 10:23 AM CDT): - three sputum cultures 07/24/23, 08/21/23 and 08/22/23 that are positive for mycobacterium avium. - CT initially performed on 10/21/2023 at [facility] and this is being compared to a prior study that was done on 06/13/23 at [facility]. This was uploaded for consult. - 08/21/22: + Mycobacterium Avium: Resistant: Amikacin, linezolid, moxifloxacin. Susceptible: Amikacin inhaled, clarithromycin, ciprofloxacin - multiple drug allergies including PCN (nausea/vomiting/diarrhea), Sulfa (christiano johnsons syndrome), tetracycline (rash). - Recommend inhaled hypertonic 3% saline to help clear secretions, as well as an Acapella device. She should be able to obtain these through her medical assistant prn. - In regards to choice of treatment she has no cavitary lesions on imaging. - She could be treated with azithromycin 500 mg three times per week, ethambutol 1800 mg three times per week based on an adjusted body weight of 70.5 kg and rifabutin 300 mg three times per week. - rifabutin would be a better choice than rifampin due to the interaction with metoprolol and sertraline. - will await imaging readings prior to starting treatment. - Prevnar 20 today - EKG today as she will be started on a Qt prolonged medication - [facility] vision testing wnl. Assessment & Plan (11/26/2023 10:34 AM CDT): - three sputum cultures 07/24/23, 08/21/23 and 08/22/23 that are positive for mycobacterium avium. - CT initially performed on 10/21/2023 at [facility] and this is being compared to a prior study that was done on 06/13/23 at [facility]. This was uploaded for consult. - 08/21/22: + Mycobacterium Avium: Resistant: Amikacin, linezolid, moxifloxacin. Susceptible: Amikacin inhaled, clarithromycin, ciprofloxacin - multiple drug allergies including PCN (nausea/vomiting/diarrhea), Sulfa (christiano johnsons syndrome), tetracycline (rash). - Recommend inhaled hypertonic 3% saline to help clear secretions, as well as an Acapella device. She should be able to obtain these through her medical assistant prn. - In regards to choice of treatment she has no cavitary lesions on imaging. - She could be treated with azithromycin 500 mg three times per week, ethambutol 1800 mg three times per week based on an adjusted body weight of 70.5 kg and rifabutin 300 mg three times per week. - rifabutin would be a better choice than rifampin due to the interaction with metoprolol and sertraline. - will await imaging readings prior to starting treatment. - Prevnar 20 today - EKG today as she will be started on a Qt prolonged medication - [facility] vision testing wnl. Pulmonary infection 11/26/2023 Assessment & Plan (11/26/2023 10:43 AM CDT): Plan noted above Corneal ulcer of left eye 12/01/2021 Assessment & Plan (12/04/2021 9:56 AM CDT): -Diagnosed 11/30, no inciting trauma, no CTL use, started on vanc/tobra/nitish and valtrex -Cx NGTD -Has continued to improve on exam in terms of epi defect and infiltrate size -Continue vanc/tobra/nitish q2hr while awake (patient thinks she is using about 7x/day) and valtrex 1g TID -RTC 2 days Assessment & Plan (12/02/2021 6:02 PM CDT): - Hx of lasix with developed of corneal ulcer OS without an inciting event - Exam today with improved vision, worsening C-shaped epi defect, stable area of corneal haze temporally (based on photo review) - cultures with NGTD, HSV/VZV negative - decrease vanc/tobra/natamycin to q2hr while awake - continue valtrex 1g TID - follow-up in [facility] on Friday for K check. If improving consider switching to moxi given worsening epi defect as above Assessment & Plan (12/01/2021 4:50 PM CDT): Hx of LASIK with development of corneal ulcer left eye (OS) without inciting factor Exam today relatively stable but with increase in opacification of corneal haze, epi defect stable Cultures NGTD, HSV/VZV pending CPM - valtrex 1 g TID, vanc/tobra/natamycin q1h around the clock RTC Friday 4:00 PM for K check Immunizations Immunization Administration Dates Next Due Hep A, Adult 04/08/2000,08/21/1999 Influenza, Quadrivalent, Spl it, Preservative Free, Intramuscular 04/05/2023 Pneumococcal Conjugate Pcv20 11/11/2023 Social History Tobacco Use Types Packs/Day Years Used Date Smoking Tobacco: Former Cigarettes Tobacco Cessation:Counseling Given: Not Answered Comments No Sex and Gender Information Value Date Recorded Sex Assigned at Not on file 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 Gender Identity Female 12/03/2021 10:24 AM CDT Sexual Orientation Not on file Last Filed Vital Signs Vital Sign Reading Time Taken Comments Blood Pressure 152/71 01/18/2025 9:13 AM CDT Pulse 75 01/18/2025 9:13 AM CDT Temperature 36.8 C (98.3 F) 01/18/2025 9:13 AM CDT Respiratory Rate 18 11/30/2021 5:52 PM CDT Oxygen Saturation 98% 01/18/2025 9:13 AM CDT Inhaled Oxygen Concentration - - Weight 80.3 kg (177 lb) 01/18/2025 9:13 AM CDT Height 180 cm (5' 10.87) 01/18/2025 9:13 AM CDT Body Mass Index 24.78 01/18/2025 9:13 AM CDT Plan of Treatment Not on file Procedures Procedure Name Priority Date/Time Associated Diagnosis Comments MYCOBACTERIOLOGY AFB CULTURE AND ACID-FAST STAIN Routine 02/22/2025 7:00 PM CDT Pulmonary mycobacterial infection (HCC) CT CHEST WO CONTRAST Schedule Routine, Read Routine (OP Routine) 02/04/2025 11:46 AM CDT Pulmonary mycobacterial infection (HCC) Bronchiectasis without complication (HCC) EGFR Routine 01/18/2025 10:25 AM CDT Pulmonary mycobacterial infection (HCC) Bronchiectasis without complication (HCC) Encounter for long-term (current) use of antibiotics DIFFERENTIAL AUTO Routine 01/18/2025 10:25 AM CDT Pulmonary mycobacterial infection (HCC) Bronchiectasis without complication (HCC) Encounter for long-term (current) use of antibiotics GLUCOSE, RANDOM (OUTREACH) Routine 01/18/2025 10:25 AM CDT Pulmonary mycobacterial infection (HCC) Bronchiectasis without complication (HCC) Encounter for long-term (current) use of antibiotics COMPREHENSIVE METABOLIC PANEL WITHOUT GLUCOSE (OUTREACH) Routine 01/18/2025 10:25 AM CDT Pulmonary mycobacterial infection (HCC) Bronchiectasis without complication (HCC) Encounter for long-term (current) use of antibiotics CBC WITH AUTO DIFFERENTIAL Routine 01/18/2025 10:25 AM CDT Pulmonary mycobacterial infection (HCC) Bronchiectasis without complication (HCC) Encounter for long-term (current) use of antibiotics COMPREHENSIVE METABOLIC PANEL (OUTREACH) Routine 01/18/2025 10:25 AM CDT Pulmonary mycobacterial infection (HCC) Bronchiectasis without complication (HCC) Encounter for long-term (current) use of antibiotics from Last 3 Months Results * CT chest without contrast (02/04/2025 11:46 AM CDT) Anatomical Region Laterality Modality Body N/A Computed Tomogra phy 02/04/2025 12:0 3 PM CDT Impressions 02/04/2025 12:03 PM CDT Unchanged mild bronchiectasis and scattered areas of tree-in-bud nodularity, in keeping with reported Mycobacterium avium complex infection. Electronically signed by: Chad Diehl M.D. Narrative 02/04/2025 12:03 PM CDT EXAMINATION: Computed tomography of the chest without intravenous contrast HISTORY: Bronchiectasis, atypical mycobacterial infection TECHNIQUE: Computed tomographic images of the chest were obtained without intravenous contrast according to the standard protocol. COMPARISON: 06/30/2024 FINDINGS: Normal heart size. No pericardial effusion. Normal course and caliber the thoracic aorta. Normal thoracic esophagus. No axillary, supraclavicular, mediastinal, or hilar lymphadenopathy on this noncontrast examination. Limited images above the upper abdomen show postsurgical changes of cholecystectomy but no other remarkable findings. Biapical pleural-parenchymal scarring. Patent central airways. No consolidation, pleural effusion, or pneumothorax. Unchanged subtle areas of tree-in-bud nodularity and groundglass opacity in the right middle lobe. Additional scattered sub-5 mm nodules, such as a 3 nodule in the right lung apex (series 3, image 33), are unchanged. Subtle midlung predominant bronchiectasis. No suspicious osseous lesions. Procedure Note Chad Diehl MD - 02/04/2025 EXAMINATION: Computed tomography of the chest without intravenous contrast HISTORY: Bronchiectasis, atypical mycobacterial infection TECHNIQUE: Computed tomographic images of the chest were obtained without intravenous contrast according to the standard protocol. COMPARISON: 06/30/2024 FINDINGS: Normal heart size. No pericardial effusion. Normal course and caliber the thoracic aorta. Normal thoracic esophagus. No axillary, supraclavicular, mediastinal, or hilar lymphadenopathy on this noncontrast examination. Limited images above the upper abdomen show postsurgical changes of cholecystectomy but no other remarkable findings. Biapical pleural-parenchymal scarring. Patent central airways. No consolidation, pleural effusion, or pneumothorax. Unchanged subtle areas of tree-in-bud nodularity and groundglass opacity in the right middle lobe. Additional scattered sub-5 mm nodules, such as a 3 nodule in the right lung apex (series 3, image 33), are unchanged. Subtle midlung predominant bronchiectasis. No suspicious osseous lesions. IMPRESSION: Unchanged mild bronchiectasis and scattered areas of tree-in-bud nodularity, in keeping with reported Mycobacterium avium complex infection. Electronically signed by: Chad Diehl M.D. Chiquita Delarosa NP [facility] CT PROCEDURES Gladys l Result * Glucose, random (Outreach) (01/18/2025 10:25 AM CDT) Glucose 81 70 - 199 mg/dL Comment: Interpretive Data Fasting glucose >/= 126 mg/dl is diagnostic for diabetes. Fasting is defined as no caloric intake for at least 8 hours. Fasting glucose between 100 mg/dl to 125 mg/dl is diagnostic of prediabetes. In a patient with classic symptoms of hyperglycemia or hyperglycemic crisis, a random glucose >/= 200 mg/dl is diagnostic for diabetes. In the absence of unequivocal hyperglycemia, results should be confirmed by repeat testing. The classification and Diagnosis of Diabetes Diabetes Care 2021; 46: S19-S40. Current interpretive data was last revised 2022. Blood 01/18/2025 10:2 5 AM CDT 01/18/2025 12:46 PM CDT Chiquita Delarosa NP LAB BLOOD ORDERABLES F inal Result Performing Organization Address [facility] Co de Phone Number JARED [facility] [place] [address] * eGFR (01/18/2025 10:25 AM CDT) eGFR 64 >=60 mL/min/1. 73 m2 Comment: Interpretive Data Reference Interval Normal >/= 90 mL/min/1.73m2 Mildly decreased* 60 - 89 mL/min/1.73m2 Mildly to moderately decreased 45 - 59 mL/min/1.73m2 Moderately to severely decreased 30 - 44 mL/min/1.73m2 Severely decreased 15 - 29 mL/min/1.73m2 Kidney Failure < 15 mL/min/1.73m2 *Relative to young adult level Estimated glomerular filtration rate is determined by the 2020 CKD-EPI equation recommended by the National Kidney Foundation (A Unifying Approach to GFR Estimation: Recommendations of the NKF-ASK Task Force on Reassessing the Inclusion of Race in Diagnosing Kidney Disease, JASN 2020). The CKD-EPI equation should not be used for patients with unstable renal function and has not been validated in children and those over 70. Current interpretive data was last reviewed 2021. Blood 01/18/2025 10:2 5 AM CDT 01/18/2025 12:53 PM CDT us Chiquita Delarosa NP LAB BLOOD ORDERABLES F inal Result Performing Organization Address City/[facility]/ZIP Co de Phone Number JARED [facility] Department [place] [address] * Differential, auto (01/18/2025 10:25 AM CDT) Neutrophil abs 2.85 1.50 - 6.50 K/cumm Imm gran abs 0.01 0.00 - 0.10 K/cumm [facility] Lymphocyte abs 1.07 0.80 - 3.30 K/cumm [facility] Monocyte abs 0.72 0.20 - 0.80 K/cumm [facility] Eosinophil abs 0.11 0.00 - 0.50 K/cumm [facility] Basophil abs 0.02 0.00 - 0.10 K/cumm [facility] Neutrophil pct 59.6 % [facility] Comment: Interpretive Data Percent cell count reference ranges are not reported, since discordance with absolute values may lead to misinterpretation of CBC data. Current Interpretive Data was last revised on 2017. Imm gran pct 0.2 % [facility] Comment: Interpretive Data Percent cell count reference ranges are not reported, since discordance with absolute values may lead to misinterpretation of CBC data. Current Interpretive Data was last revised on 2017. Lymphocyte pct 22.4 % [facility] Comment: Interpretive Data Percent cell count reference ranges are not reported, since discordance with absolute values may lead to misinterpretation of CBC data. Current Interpretive Data was last revised on 2017. Monocyte pct 15.1 % [facility] Comment: Interpretive Data Percent cell count reference ranges are not reported, since discordance with absolute values may lead to misinterpretation of CBC data. Current Interpretive Data was last revised on 2017. Eosinophil pct 2.3 % [facility] Comment: Interpretive Data Percent cell count reference ranges are not reported, since discordance with absolute values may lead to misinterpretation of CBC data. Current Interpretive Data was last revised on 2017. Basophil pct 0.4 % [facility] Comment: Interpretive Data Percent cell count reference ranges are not reported, since discordance with absolute values may lead to misinterpretation of CBC data. Current Interpretive Data was last revised on 2017. Blood 01/18/2025 10:2 5 AM CDT 01/18/2025 12:46 PM CDT Chiquita Delarosa NP LAB BLOOD ORDERABLES F inal Result [facility] Department [place] [address] * Comprehensive metabolic panel, without glucose (Outreach) (01/18/2025 10:25 AM CDT) Pathologist [facility] [place] Sodium 142 135 - 145 mmol/L Potassium, pl 4.4 3.3 - 4.9 mmol/L [facility] Chloride 104 97 - 110 mmol/L [facility] CO2 28 22 - 32 mmol/L [facility] Anion gap 10 2 - 15 mmol/L [facility] BUN 13 6 - 25 mg/dL [facility] Creatinine 0.98 0.60 - 1.10 mg/dL [facility] Calcium 9.6 8.5 - 10.3 mg/dL [facility] Protein, pl 7.4 6.5 - 8.5 g/dL [facility] Albumin 4.2 3.5 - 5.0 g/dL [facility] Bilirubin, total 0.5 0.1 - 1.2 mg/dL [facility] Alk phos 77 40 - 130 Units/L [facility] AST 23 10 - 45 Units/L [facility] ALT 18 7 - 45 Units/L [facility] Blood 01/18/2025 10:2 5 AM CDT 01/18/2025 12:46 PM CDT Chiquita Delarosa NP LAB BLOOD ORDERABLES F inal Result [facility] Department [place] [address] * CBC with auto differential (01/18/2025 10:25 AM CDT) Pathologist [facility] [place] WBC 4.78 3.80 - 9.90 K/cumm Hgb 13.1 11.9 - 15.5 g/dL [facility] Hct 39.1 35.6 - 45.5 % [facility] Plt 313 150 - 400 K/cumm [facility] MPV 9.8 9.1 - 12.3 fL [facility] RBC 4.23 3.90 - 5.20 M/cumm [facility] MCV 92.4 81.3 - 96.4 fL [facility] MCH 31.0 27.1 - 33.3 pg [facility] MCHC 33.5 32.3 - 35.7 g/dL [facility] RDW CV 12.8 11.1 - 14.9 % [facility] RDW SD 43.1 35.7 - 48.1 fL [facility] NRBC abs 0.00 0.00 - 0.01 K/cumm [facility] Blood 01/18/2025 10:2 5 AM CDT 01/18/2025 12:46 PM CDT Chiquita Delarosa NP LAB BLOOD ORDERABLES F inal Result Performing Organization Address City/State/[facility] Co de Phone Number [facility] Department [place] [address] from Last 3 Months Insurance [facility] [employer] [place] [phone] [place] 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
--- OUTSIDE RECORDS SUMMARY | 2025-02-26 11:06 | XMS_ITS | Clinical Summary ---
Author Organization [email or web address] Address [address] Nava: Epic Prelude ADT GISELE KOHLI [id number] Care Team Providers Care Financial Cost Analyst Name Role Phone Unavailable Primary Care Provider Unavailabl e Social History Tobacco Use Types Packs/Day Years Used Date Smoking Tobacco: Never Assessed Comments Unknown Sex and Gender Information Value Date Recorded Sex Assigned at Not on file Legal Sex Female 8:56 PM CDT Gender Identity Not on file Sexual Orientation Not on file Plan of Treatment Health Maintenance Due Date Last Done Comments DTAP/TDAP/TD VACCINES (1 - Tdap) 1979 HPV/Cotest (21-29) 1981 CERVICAL CANCER SCREENING 1990 HPV/Cotest (30-65) 1990 PAP SMEAR 1990 COLORECTAL SCREENING 2005 Colorectal Cancer Screening 2005 FIT-DNA Q 3 years 2005 FIT/FOBT Q 1 year 2005 Flex Sig/CT Colonography Q 5 years 2005 ZOSTER VACCINE (1 of 2) 2010 BREAST CANCER SCREENING 01/24/2020 01/23/2019, 01/23 INFLUENZA VACCINE (#1) 2025 RSV VACCINE (60+ or ) (1 - 1-dose 75+ series) 2035
--- OUTSIDE RECORDS SUMMARY | 2025-02-26 11:06 | XMS_ITS | Clinical Summary ---
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 This was uploaded for consult. - 08/21/22: + Mycobacterium Avium: Resistant: Amikacin, linezolid, moxifloxacin. Susceptible: Amikacin inhaled, clarithromycin, ciprofloxacin - multiple drug allergies including PCN (nausea/vomiting/diarrhea), Sulfa (christiano johnsons syndrome), tetracycline (rash). - Recommend inhaled hypertonic 3% saline to help clear secretions, as well as an Acapella device. 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 - In regards to choice of treatment [...] - CT initially performed on 10/21/2023 at [facility] and this is being compared to a prior study that was done on 06/13/23 at [facility]. This was uploaded for consult. - 08/21/22: + Mycobacterium Avium: Resistant: Amikacin, linezolid, moxifloxacin. Susceptible: Amikacin inhaled, clarithromycin, ciprofloxacin - multiple drug allergies including PCN (nausea/vomiting/diarrhea), Sulfa (christiano johnsons syndrome), tetracycline (rash). - Recommend inhaled hypertonic 3% saline to help clear secretions, as well as an Acapella device. 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 - In regards to choice of treatment [...] RTC Friday 4:00 PM for K check Encounters Date Type Department Care Team Description 02/04/2025 11:06 AM CDT - 02/04/2025 11:59 PM CDT Hospital Encounter [facility] [address] [place] [id number] Pulmonary mycobacterial infection (HCC); Bronchiectasis without complication (HCC) Discharge Disposition: Discharge to home or self care 01/19/[address] [facility] Infectious Diseases [address] [place] [phone] Yasmeen Loera CMA 01/18/2025 10:28 AM CDT - 01/18/2025 11:59 PM CDT Hospital Encounter [facility] [address] [place] [address] Discharge Disposition: Discharge to home or self care 01/18/2025 9:20 AM CDT Office Visit [facility] Infectious Diseases [address] [place] [phone] Chiquita Delarosa NP Pulmonary mycobacterial infection (HCC) (Primary Dx); Bronchiectasis without complication (HCC); Encounter for long-term (current) use of antibiotics 01/18/[address] [facility] Infectious Diseases [address] [place] [phone] Chiquita Delarosa NP Pulmonary mycobacterial infection (HCC) (Primary Dx) from Last 3 Months Immunizations Immunization Administration Dates Next Due Hep A, Adult 04/08/2000,08/21/1999 Influenza, Quadrivalent, Spl it, Preservative Free, Intramuscular 04/05/2023 Pneumococcal Conjugate Pcv20 11/11/2023 Social History Tobacco Use Types Packs/Day Years Used Date Smoking Tobacco: Former Cigarettes Tobacco Cessation:Counseling Given: Not Answered Comments No Sex and Gender Information Value Date Recorded Sex Assigned at Not on file 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 Gender Identity Female 12/03/2021 10:24 AM CDT Sexual Orientation Not on file Obstetrics History Last Filed Vital Signs Vital Sign Reading [...] 01/18/2025 9:13 AM CDT Plan of Treatment Health Maintenance Due Date Last Done Comments Breast Cancer Screening-Mammogram 1960 Cervical Cancer Screening 1960 Colon Cancer Screening-Colonoscopy 1960 Depression Screening 1960 Hepatitis C Screening 1960 DTaP/Tdap/Td Vaccine (1 - Tdap) 1971 Hepatitis B Screening 1978 Regular Well Visit/Exam 18-64 1978 Zoster Vaccine (1 of 2) 2010 Covid-19 Vaccine (3 - 2023-2 5 season) 2024 01/31/2021, 01/03/2021 Influenza Vaccine (#1) 2025 04/05/2023 Pneumococcal vaccine <65 Aged Out 11/11/2023 No longer eligible based on patient's age to complete this topic Procedures Procedure Name Priority Date/Time Associated Diagnosis [...] infection. Electronically signed by: Chad Diehl M.D. us Chiquita Delarosa NP IMG CT PROCEDURES Gladys l Result * Glucose, [...] 5 AM CDT 01/18/2025 12:46 PM CDT us Chiquita Delarosa NP LAB BLOOD ORDERABLES F inal Result [facility] Department [place] [address] * eGFR (01/18/2025 10:25 AM CDT) eGFR [...] 5 AM CDT 01/18/2025 12:53 PM CDT Chiquita Delarosa NP LAB BLOOD ORDERABLES F inal Result [facility] Department [place] [address] * Differential, auto (01/18/2025 10:25 AM CDT) Neutrophil abs 2.85 1.50 - 6.50 K/cumm Imm gran abs 0.01 0.00 - 0.10 K/cumm [facility] Lymphocyte abs 1.07 0.80 - 3.30 K/cumm [facility] Monocyte abs 0.72 0.20 - 0.80 K/cumm [facility] Eosinophil abs 0.11 0.00 - 0.50 K/cumm [facility] Basophil abs 0.02 0.00 - 0.10 K/cumm [facility] Neutrophil pct 59.6 % [facility] Comment: Interpretive Data Percent cell count reference ranges are not reported, since discordance with absolute values may lead to misinterpretation of CBC data. Current Interpretive Data was last revised on 2017. Imm gran pct 0.2 % [facility] Comment: Interpretive Data Percent cell count reference ranges are not reported, since discordance with absolute values may lead to misinterpretation of CBC data. Current Interpretive Data was last revised on 2017. Lymphocyte pct 22.4 % [facility] Comment: Interpretive Data Percent cell count reference ranges are not reported, since discordance with absolute values may lead to misinterpretation of CBC data. Current Interpretive Data was last revised on 2017. Monocyte pct 15.1 % [facility] Comment: Interpretive Data Percent cell count reference ranges are not reported, since discordance with absolute values may lead to misinterpretation of CBC data. Current Interpretive Data was last revised on 2017. Eosinophil pct 2.3 % [facility] Comment: Interpretive Data Percent cell count reference ranges are not reported, since discordance with absolute values may lead to misinterpretation of CBC data. Current Interpretive Data was last revised on 2017. Basophil pct 0.4 % [facility] Comment: Interpretive Data Percent cell count reference ranges are not reported, since discordance with absolute values may lead to misinterpretation of CBC data. Current Interpretive Data was last revised on 2017. Blood 01/18/2025 10:2 5 AM CDT 01/18/2025 12:46 PM CDT Chiquita Delarosa NP LAB BLOOD ORDERABLES F inal Result [facility] Department [place] [address] * Comprehensive metabolic panel, without glucose (Outreach) (01/18/2025 10:25 AM CDT) Sodium 142 135 - 145 mmol/L Potassium, pl 4.4 3.3 - 4.9 mmol/L [facility] Chloride 104 97 - 110 mmol/L [facility] CO2 28 22 - 32 mmol/L [facility] Anion gap 10 2 - 15 mmol/L [facility] BUN 13 6 - 25 mg/dL [facility] Creatinine 0.98 0.60 - 1.10 mg/dL [facility] Calcium 9.6 8.5 - 10.3 mg/dL [facility] Protein, pl 7.4 6.5 - 8.5 g/dL [facility] Albumin 4.2 3.5 - 5.0 g/dL [facility] Bilirubin, total 0.5 0.1 - 1.2 mg/dL [facility] Alk phos 77 40 - 130 Units/L [facility] AST 23 10 - 45 Units/L [facility] ALT 18 7 - 45 Units/L [facility] Blood 01/18/2025 10:2 5 AM CDT 01/18/2025 12:46 PM CDT Chiquita Delarosa NP LAB BLOOD ORDERABLES F inal Result Performing Organization Address [facility] Co de Phone Number [facility] Department [place] [address] * CBC with auto differential (01/18/2025 10:25 AM CDT) [facility] WBC 4.78 3.80 - 9.90 K/cumm Hgb 13.1 11.9 - 15.5 g/dL [facility] Hct 39.1 35.6 - 45.5 % [facility] Plt 313 150 - 400 K/cumm [facility] MPV 9.8 9.1 - 12.3 fL [facility] RBC 4.23 3.90 - 5.20 M/cumm [facility] MCV 92.4 81.3 - 96.4 fL [facility] MCH 31.0 27.1 - 33.3 pg [facility] MCHC 33.5 32.3 - 35.7 g/dL [facility] RDW CV 12.8 11.1 - 14.9 % [facility] RDW SD 43.1 35.7 - 48.1 fL [facility] NRBC abs 0.00 0.00 - 0.01 K/cumm [facility] Blood 01/18/2025 10:2 5 AM CDT 01/18/2025 12:46 PM CDT Chiquita Delarosa NP LAB BLOOD ORDERABLES F inal Result Performing Organization Address City/[facility]/ZIP Co de Phone Number [facility] Department [place] [address] from Last 3 Months [facility] [place] [address] [place] Care Teams Head Knitting Machine Fixer Relationship Specialty Start Date End Date Miles Medina MD [facility] - General 02/22/15
--- OUTSIDE RECORDS SUMMARY | 2025-02-26 11:06 | XMS_ITS | Encounter Summary ---
Author Organization [facility] Address [address] [place] [address] Phone Care Team Providers Care Visitor Service Assistant Name Role Phone Miles Medina MD Primary Care Provider + [phone] Encounter Details Date Type Department Care Team (Late st Contact Info) Description 11/30/2021 Ophth Exam [facility]mology [address] [place] [address] [address] [place] [phone] Dg Zuniga MD [address] [place] [address] [place] [address] Social History Tobacco Use Types Packs/Day Years Used Date Smoking Tobacco: Never Assessed Comments No Sex and Gender Information Value Date Recorded Sex Assigned at Not on file 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 Gender Identity Female 12/03/2021 10:24 AM CDT Sexual Orientation Not on file documented as of this encounter Plan of Treatment Not on file documented as of this encounter Visit Diagnoses Not on filedocumented in this encounter Eye Exam Visual Acuity Right eye Left eye Near cc 20/20 20/40 PH 20/20 Tonometry (Tonopen, 10:13 PM) Right eye Left eye Pressure 14 15 Pupils Dark Light Shape React APD Right eye 4 2 Round Brisk None Left eye 4 2 Round Brisk None Visual Dennis Right eye Left eye Full Full Extraocular Movement Right eye Left eye Full, Ortho Full, Ortho Neuro/Psych Oriented x3: Yes Mood/Affect: Normal Dilation Both eyes: 2.5% Phenylephrin e, 1.0% Mydriacyl @ 10:13 PM External Exam Right eye Left eye External Normal Normal Slit Lamp Exam Right eye Left eye Lids/Lashes Normal protective ptosi s, distichiasis along lower lid, yellow purulent discharge Conjunctiva/Sclera White and quiet 1+ injection Cornea Clear 22 mm (h) x 2mm (w) K abrasion with 1.3 mm circular corneal haze. With overhanging epi Anterior Chamber Deep and Quiet 2+ cell and fla re ~0.2 mm layered hyphema Iris Round and reactive Round and machelle ctive Lens 1+ NS 1+ NS Vitreous syneresis syneresis Fundus Exam Right eye Left eye Disc Sharp margins, no elevation Mark p margins, no elevation C/D Ratio 0.2 0.2 Macula Flat, attached Flat, attached Vessels Normal course and caliber Normal course and caliber Periphery bony spicules at ~6 oclock cobbl e stone changes inferioly Care Teams Visitor Service Assistant Relationship Specialty Start Date End Date Miles Medina MD PCP - General 02/22/15 documented as of this encounter
--- NOTE | 2025-02-26 11:11 | ECG_ITS ---
Test Date: 2025-02-26 11:17:32 Measurements Intervals [place] Rate: 112 P: 12 AL: 95 QRS: 61 QRSD: 90 T: 68 QT: 320 QTc: 438 Interpretive Statements SINUS TACHYCARDIA WITH SHORT AL INTERVAL MINIMAL ST DEPRESSION [0.025+ mV ST DEPRESSION] ABNORMAL ECG Electronically Signed On 02-26-2025 12:49:39 CDT by Demetris Pickard M.D.
--- NOTE | 2025-02-26 11:23 | ED_ITS ---
HPI - General Adult General Chief complaint: Shortness of Breath/Dyspnea Stated complaint: SOB and cough Time Seen by Provider: 02/26/25 11:12 History of Present Illness HPI narrative: Liz Vanegas is 64 years old, history of hypertension, COPD, pulmonary MAC complex presenting for shortness of breath. Patient has shortness of breath on a daily basis although she says is gotten worse over the last 3 days. She is now winded at rest. She has been having a productive cough with scant sputum. She has been taking all her medications as instructed including treatment for her back complex. Patient denies fevers chills chest pain abdominal pain nausea vomiting diarrhea. Patient follows with [facility] for MAC. [facility] Dr. Johnson Related Data Home Medications ?Medication ?Instructions ?Recorded ?Confirmed ?Last Taken ?Type azithromycin 500 mg tablet 500 mg PO .COMPLEX 08/09/24 02/26/25 02/25/25 History ethambutol 400 mg tablet 1,800 mg PO .COMPLEX atypical 08/09/24 02/26/25 02/25/25 History mycobacterial disease rifabutin 150 mg capsule 300 mg PO DAILY atypical 08/09/24 02/26/25 02/25/25 History mycobacterial infection Allergies Allergy/AdvReac Type Severity Reaction Status Date / Time Cephalosporins Allergy Unknown Unknown Verified 02/26/25 11:14 Penicillins Allergy Unknown Unknown Verified 02/26/25 11:14 Sulfa (Sulfonamide Allergy Unknown Unknown Verified 02/26/25 11:14 Antibiotics) sulfanilamide Allergy Unknown Unknown Verified 02/26/25 11:14 tetracycline Allergy Unknown Unknown Verified 02/26/25 11:14 ampicillin Allergy Rash Verified 02/26/25 11:14 [facility] Past Medical History Medical History Hypertension Chronic obstructive pulmonary disease Mycobacterium avium complex Mixed hyperlipidemia Surgical History Surgical History History of cholecystectomy Family History Family History Father Hypertension Family history of elevated blood lipids Mother Cerebrovascular accident Family history of diabetes mellitus in first degree relative Family history of coronary artery disease Acute myocardial infarction Sibling Family history of pancreatic cancer Sibling Heart disease Social History Social History Social History: Surrogate medical decision maker: Estephania Oconnor, sister. Code status: Full code. Smoking packs per day: 3 Smoking cigarettes per day: 60.0 Years smoked: 10 Smoking pack-years: 30.00 Smoking status: Former smoker Second hand tobacco smoke exposure: No Alcohol intake: never Substance use: never Substance use type: does not use Do You Feel Safe in your Home?: Yes Lack of Transportation: No Lack of Food: Never True Current Housing: I Have Housing Concerned About Future Housing: No Difficulty Paying Gas/Electric Bills: No Difficulty Paying for Meds: No Currently Unemployed: No Education: High School Diploma/GED Difficulty w/ Childcare or Family Care: No Living arrangements: alone Occupation/Education: retired 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 Head: atraumatic. EYES: EOMI, NOSE: Atraumatic NECK: Trachea midline RESPIRATORY: Tachypneic, scattered expiratory wheezing in all reilly, CARDIOVASCULAR: Tachycardic, no peripheral edema ABDOMINAL: Non-distended soft nontender MUSCULOSKELETAl: No obvious deformities NEURO: Alert. Moving 4/4 extremities SKIN:: Warm, dry. Normal color PSYCHIATRIC: Normal affect Course Vital Signs Vital signs: Vital Signs Temperature 97.7 F 02/26/25 11:14 Pulse Rate 120 H 02/26/25 11:14 Respiratory Rate 22 H 02/26/25 11:14 Blood Pressure 173/84 H 02/26/25 11:14 Pulse Oximetry 99 02/26/25 11:14 Oxygen Delivery Room Air 02/26/25 11:14 Temperature 97.7 F 02/26/25 11:14 Pulse Rate 117 H 02/26/25 12:44 Respiratory Rate 14 02/26/25 12:44 Blood Pressure 106/62 02/26/25 12:42 Pulse Oximetry 98 02/26/25 12:45 Oxygen Delivery Room Air 02/26/25 12:45 Medical Decision Making MDM Narrative Medical decision making narrative: -Course: 64-year-old female history of COPD and MAC complex currently undergoing treatment presenting for 3 days of difficulty breathing. On exam she has tachycardic and tachypneic. She has wheezing in all reilly. Patient given an hour long breathing treatment magnesium and dexamethasone. Workup showed a normal white count. No fevers. D-dimer was less than 0.5. CT chest ordered which did not show any infiltrates or pneumonia. On re-evaluation the patient is still tachycardic and tachypneic. Patient will be admitted the hospital for further management of her COPD exacerbation. Patient has allergies to most antibiotics. She was placed on levofloxacin for COPD exacerbation. This will also cover possible UTI while we await culture results. While in the ED the patient developed a pounding headache. She was treated w/ a migraine cocktail with some improvement. CT brain was ordered showed possible dilation of the lateral ventricles but no ICH. Neurologic exam is normal. This is likely an incidental finding and not causative of her headache. Further eval as needed by inpatient team. -DDX includes but is not limited to: COPD exacerbation, pneumonia, PE, ACS, pneumothorax -Co-morbidities complicating care: COPD, MAC complex infection Independent EKG interpretation: Rhythm [sinus], Rate [112], [place] -[normal], [place] -[normal], QRS [narrow], QTC [normal], T waves -[negative for concerning inversions], ST Segments - [Negative for concerning elevations] Final interpretations: Sinus tachycardia Vital Signs Vital Signs: Vital Signs Temperature 97.7 F 02/26/25 11:14 Pulse Rate 120 H 02/26/25 11:14 Respiratory Rate 22 H 02/26/25 11:14 Blood Pressure 173/84 H 02/26/25 11:14 Pulse Oximetry 99 02/26/25 11:14 Oxygen Delivery Room Air 02/26/25 11:14 Temperature 97.7 F 02/26/25 11:14 Pulse Rate 117 H 02/26/25 12:44 Respiratory Rate 14 02/26/25 12:44 Blood Pressure 106/62 02/26/25 12:42 Pulse Oximetry 98 02/26/25 12:45 Oxygen Delivery Room Air 02/26/25 12:45 Lab Data 02/26/25 11:29 02/26/25 11:29 Labs: Lab Results 02/26/25 02/26/25 02/26/25 Range/Units 11:29 11:29 11:29 WBC 4.5 (4.5-10.0) K/mm3 RBC 4.28 (4.2-5.4) M/mm3 Hgb 12.8 (12.0-15.0) g/dL Hct 38.6 (37.0-47.0) % MCV 90.2 (80-100) fl MCH 29.9 (26-34) pg MCHC 33.2 (32-36) g/dl RDW 12.7 (11.5-14.5) % Plt Count 255 (150-375) k/mm3 MPV 8.8 (7.4-10.4) fl Immature Gran % (Auto) 0.2 (0-0.5) % Neut % (Auto) 79.5 H (45.5-73.1) % Lymph % (Auto) 7.6 L (18.3-44.2) % Mccormick % (Auto) 11.2 H (2.6-8.5) % Eos % (Auto) 1.3 (0-4.4) % Baso % (Auto) 0.2 (0.2-1.2) % Lymph # (Auto) 0.34 L (0.9-3.2) K/mm3 Mccormick # (Auto) 0.5 (0.1-0.6) K/mm3 Eos # (Auto) 0.1 (0-0.3) K/mm3 Baso # (Auto) 0.0 (0.0-0.1) K/mm3 Abs Immat Gran (auto) 0.01 (0.00-0.031) K/mm3 Absolute Neuts (auto) 3.5 (1.3-6.7) K/mm3 Absolute Nucleated RBC 0.000 (0.0-0.012) K/mm3 Nucleated RBC % 0.0 (0.0-0.2) % PT 13.2 (11.1-14.7) Seconds INR 1.0 APTT 22.9 (22.3-36.8) Seconds D-Dimer 0.47 (<0.48) ug/mL Sodium 138 (137-145) mmol/L Potassium 3.7 (3.4-5.0) mmol/L Chloride 106 (98-107) mmol/L Carbon Dioxide 20 L (22-30) mmol/L Anion Gap 12 (4-12) mmol/L BUN 15 D (7-17) mg/dL Creatinine 0.77 (0.7-1.0) mg/dL Estim Creat Clear Calc 72 ml/min Estimated GFR > 60 (59 - ) Glucose 102 (65-110) mg/dL Calcium 8.7 (8.4-10.2) mg/dL Magnesium 1.7 Cancelled (1.6-2.3) mg/dL Total Bilirubin 0.5 (0.2-1.3) mg/dL AST 31 (14-36) U/L ALT 21 (6-35) U/L Alkaline Phosphatase 61 (38-126) U/L NT-Pro-B Natriuret Pep 203 H Cancelled (19.9-100) pg/mL Total Protein 7.4 (6.3-8.2) g/dL Albumin 4.2 (3.5-5.1) g/dL Urine Color (Yellow) Urine Appearance (Clear) Urine pH (5.0-9.0) Ur Specific [place] (1.001-1.035) Urine Protein (Negative) mg/dL Urine Glucose (UA) (Negative) mg/dL Urine Ketones (Negative) mg/dL Ur Blood (Man) (Negative) Urine Nitrate (Negative) Urine Bilirubin (Negative) Urine Urobilinogen (<2.0) mg/dL Leukocyte Esterase Rfl (Negative) KIMI/UL Urine RBC (0-2) /hpf Urine WBC (0-3) /hpf Ur Squamous Epith Cells (Few) /hpf Urine Bacteria /hpf Urine Casts 02/26/25 Range/Units 11:36 WBC (4.5-10.0) K/mm3 RBC (4.2-5.4) M/mm3 Hgb (12.0-15.0) g/dL Hct (37.0-47.0) % MCV (80-100) fl MCH (26-34) pg MCHC (32-36) g/dl RDW (11.5-14.5) % Plt Count (150-375) k/mm3 MPV (7.4-10.4) fl Immature Gran % (Auto) (0-0.5) % Neut % (Auto) (45.5-73.1) % Lymph % (Auto) (18.3-44.2) % Mccormick % (Auto) (2.6-8.5) % Eos % (Auto) (0-4.4) % Baso % (Auto) (0.2-1.2) % Lymph # (Auto) (0.9-3.2) K/mm3 M[place]ormick # (Auto) (0.1-0.6) K/mm3 Eos # (Auto) (0-0.3) K/mm3 Baso # (Auto) (0.0-0.1) K/mm3 Abs Immat Gran (auto) (0.00-0.031) K/mm3 Absolute Neuts (auto) (1.3-6.7) K/mm3 Absolute Nucleated RBC (0.0-0.012) K/mm3 Nucleated RBC % (0.0-0.2) % PT (11.1-14.7) Seconds INR APTT (22.3-36.8) Seconds D-Dimer (<0.48) ug/mL Sodium (137-145) mmol/L Potassium (3.4-5.0) mmol/L Chloride (98-107) mmol/L Carbon Dioxide (22-30) mmol/L Anion Gap (4-12) mmol/L BUN (7-17) mg/dL Creatinine (0.7-1.0) mg/dL Estim Creat Clear Calc ml/min Estimated GFR (59 - ) Glucose (65-110) mg/dL Calcium (8.4-10.2) mg/dL Magnesium (1.6-2.3) mg/dL Total Bilirubin (0.2-1.3) mg/dL AST (14-36) U/L ALT (6-35) U/L Alkaline Phosphatase (38-126) U/L NT-Pro-B Natriuret Pep (19.9-100) pg/mL Total Protein (6.3-8.2) g/dL Albumin (3.5-5.1) g/dL Urine Color Dark yellow (Yellow) Urine Appearance Cloudy H (Clear) Urine pH 5.5 (5.0-9.0) Ur Specific [place] 1.031 (1.001-1.035) Urine Protein 1+ H (Negative) mg/dL Urine Glucose (UA) Negative (Negative) mg/dL Urine Ketones Trace H (Negative) mg/dL Ur Blood (Man) Negative (Negative) Urine Nitrate Negative (Negative) Urine Bilirubin Negative (Negative) Urine Urobilinogen 1.0 (<2.0) mg/dL Leukocyte Esterase Rfl 2+ H (Negative) KIMI/UL Urine RBC 0-2 (0-2) /hpf Urine WBC 11-20 H (0-3) /hpf Ur Squamous Epith Cells Moderate (Few) /hpf Urine Bacteria Rare /hpf Urine Casts 0-2 ABG Data ABG results: 02/26/25 11:40 Puncture Site Left radial ABG pH 7.405 ABG pCO2 31.3 L ABG pO2 73.9 L ABG PO2/FiO2 Ratio 3.52 ABG HCO3 19.2 L ABG O2 Saturation 95.1 ABG O2 Content 17.8 ABG Base Excess -4.5 A-a Gradient 38.4 Oxyhemoglobin 94.4 Total Hemoglobin 13.4 O2 Delivery Device Room air O2 Liters/Min Not Reportable FiO2 21 Discharge Plan Discharge Clinical Impression: COPD (chronic obstructive pulmonary disease) Patient Disposition: Still a Patient Condition: Stable Patient Language: Czech Prescriptions: No Action ethambutol 400 mg tablet 1,800 mg PO .COMPLEX Rx Instructions: 1,800 mg orally; Take Fri rifabutin 150 mg capsule 300 mg PO DAILY Rx Instructions: Take 2 pills Fri and Friday azithromycin 500 mg tablet 500 mg PO .COMPLEX Rx Instructions: 500 mg orally; Friday, Friday, & Friday guaifenesin [Mucus Relief ER] 600 mg Tablet Extended Release 12hr 1,200 mg PO Q12HR Qty: 60 0RF albuterol sulfate 2.5 mg /3 mL (0.083 %) solution for nebulization 2.5 mg inhalation Q4-6H PRN (Reason: shortness of breath or wheezing) Qty: 180 3RF albuterol sulfate [ProAir HFA] 90 mcg/actuation HFA aerosol inhaler 1 inh inhalation Q4H PRN (Reason: shortness of breath or wheezing) Qty: 6.7 3RF sertraline 100 mg tablet 100 mg PO DAILY Qty: 90 0RF metoprolol succinate 50 mg tablet extended release 24 hr 50 mg PO HS Qty: 30 4RF Breztri Aerosphere 160-9-4.8 mcg/actuation HFA aerosol inhaler See Rx Instructions .ROUTE .COMPLEX Qty: 11 3RF Dose Instruction: Inhale 2 puffs by mouth twice daily Rx Instructions: Inhale 2 puffs by mouth twice daily Follow-up/Referrals: Miles Medina MD [Primary Care Provider] -
--- OUTSIDE RECORDS SUMMARY | 2025-02-26 11:27 | XMS_ITS | Referral Summary ---
Author Organization [facility] al Address [address] [place] [address] Care Team Providers Care Motion Picture Projectionist Name Role Phone Miles Medina MD Primary Care Provider [phone] Encounters Date Type Department Care Team Description 02/04/2025 11:06 AM CDT - 02/04/2025 11:59 PM CDT Hospital Encounter [facility] [address] [place] [id number] Pulmonary mycobacterial infection (HCC); Bronchiectasis without complication (HCC) Discharge Disposition: Discharge to home or self care 01/19/2025 Telephone [facility] Infectious Diseases [address] [place] [phone] Yasmeen Loera CMA 01/18/2025 10:28 AM CDT - 01/18/2025 11:59 PM CDT Hospital Encounter [facility] [address] [place] [address] Discharge Disposition: Discharge to home or self care 01/18/2025 Orders Only [facility] Infectious Diseases [address] [place] [phone] Chiquita Delarosa NP Pulmonary mycobacterial infection (HCC) (Primary Dx) 01/18/2025 9:20 AM CDT Office Visit [facility] Infectious Diseases [address] [place] [phone] Chiquita Delarosa NP Pulmonary mycobacterial infection [...] - CT initially performed on 10/21/2023 at [place] and this is being compared to a prior study that was done on 06/13/23 at [place]. This was uploaded for consult. - 08/21/22: + Mycobacterium Avium: Resistant: Amikacin, linezolid, moxifloxacin. Susceptible: Amikacin inhaled, clarithromycin, ciprofloxacin - multiple drug allergies including PCN (nausea/vomiting/diarrhea), Sulfa (christiano johnsons syndrome), tetracycline (rash). - Recommend inhaled hypertonic 3% saline to help clear secretions, as well as an Acapella device. She should be able to obtain these through her digitizer. - In regards to choice of treatment [...] - CT initially performed on 10/21/2023 at [place] and this is being compared to a prior study that was done on 06/13/23 at [place]. This was uploaded for consult. - 08/21/22: + Mycobacterium Avium: Resistant: Amikacin, linezolid, moxifloxacin. Susceptible: Amikacin inhaled, clarithromycin, ciprofloxacin - multiple drug allergies including PCN (nausea/vomiting/diarrhea), Sulfa (christiano johnsons syndrome), tetracycline (rash). - Recommend inhaled hypertonic 3% saline to help clear secretions, as well as an Acapella device. She should be able to obtain these through her digitizer. 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 Chiquita Delarosa NP [facility]ED[facility] Gladys l Result * Glucose, [...] 5 AM CDT 01/18/2025 12:46 PM CDT Chiqutia Delarosa NP LAB BLOOD ORDERABLES F inal Result Performing Organization Address [facility]/[place] Co de Phone Number [facility] [place] [address] * eGFR (01/18/2025 10:25 AM CDT) eGFR [...] ORDERABLES F inal Result Performing Organization Address City/[facility]/ZIP Co de Phone Number [facility] [place] [address] * Differential, auto (01/18/2025 10:25 AM CDT) Neutrophil abs 2.85 1.50 - 6.50 K/cumm Imm gran abs 0.01 0.00 - 0.10 K/cumm [facility] Lymphocyte abs 1.07 0.80 - 3.30 K/cumm [facility] Monocyte abs 0.72 0.20 - 0.80 K/cumm [facility] Eosinophil abs 0.11 0.00 - 0.50 K/cumm [facility] Basophil abs 0.02 0.00 - 0.10 K/cumm [facility] Neutrophil pct 59.6 % [facility] Comment: Interpretive Data Percent cell count reference ranges are not reported, since discordance with absolute values may lead to misinterpretation of CBC data. Current Interpretive Data was last revised on 2017. Imm gran pct 0.2 % [facility] Comment: Interpretive Data Percent cell count reference ranges are not reported, since discordance with absolute values may lead to misinterpretation of CBC data. Current Interpretive Data was last revised on 2017. Lymphocyte pct 22.4 % [facility] Comment: Interpretive Data Percent cell count reference ranges are not reported, since discordance with absolute values may lead to misinterpretation of CBC data. Current Interpretive Data was last revised on 2017. Monocyte pct 15.1 % [facility] Comment: Interpretive Data Percent cell count reference ranges are not reported, since discordance with absolute values may lead to misinterpretation of CBC data. Current Interpretive Data was last revised on 2017. Eosinophil pct 2.3 % [facility] Comment: Interpretive Data Percent cell count reference ranges are not reported, since discordance with absolute values may lead to misinterpretation of CBC data. Current Interpretive Data was last revised on 2017. Basophil pct 0.4 % [facility] Comment: Interpretive Data Percent cell count reference ranges are not reported, since discordance with absolute values may lead to misinterpretation of CBC data. Current Interpretive Data was last revised on 2017. Blood 01/18/2025 10:2 5 AM CDT 01/18/2025 12:46 PM CDT Chiquita Delarosa NP LAB BLOOD ORDERABLES F inal Result [facility] Department [place] [address] * Comprehensive metabolic panel, without glucose (Outreach) (01/18/2025 10:25 AM CDT) Pathologist [facility] Sodium 142 135 - 145 mmol/L Potassium, pl 4.4 3.3 - 4.9 mmol/L [facility] Chloride 104 97 - 110 mmol/L [facility] CO2 28 22 - 32 mmol/L [facility] Anion gap 10 2 - 15 mmol/L [facility] BUN 13 6 - 25 mg/dL [facility] Creatinine 0.98 0.60 - 1.10 mg/dL [facility] Calcium 9.6 8.5 - 10.3 mg/dL [facility] Protein, pl 7.4 6.5 - 8.5 g/dL [facility] Albumin 4.2 3.5 - 5.0 g/dL [facility] Bilirubin, total 0.5 0.1 - 1.2 mg/dL [facility] Alk phos 77 40 - 130 Units/L [facility] AST 23 10 - 45 Units/L [facility] ALT 18 7 - 45 Units/L [facility] Blood 01/18/2025 10:2 5 AM CDT 01/18/2025 12:46 PM CDT Chiquita Delarosa NP LAB BLOOD ORDERABLES F inal Result [facility] Department [place] [address] * CBC with auto differential (01/18/2025 10:25 AM CDT) Pathologist [facility] WBC 4.78 3.80 - 9.90 K/cumm Hgb 13.1 11.9 - 15.5 g/dL [facility] Hct 39.1 35.6 - 45.5 % [facility] Plt 313 150 - 400 K/cumm [facility] MPV 9.8 9.1 - 12.3 fL [facility] RBC 4.23 3.90 - 5.20 M/cumm [facility] MCV 92.4 81.3 - 96.4 fL [facility] MCH 31.0 27.1 - 33.3 pg [facility] MCHC 33.5 32.3 - 35.7 g/dL [facility] RDW CV 12.8 11.1 - 14.9 % [facility] RDW SD 43.1 35.7 - 48.1 fL [facility] NRBC abs 0.00 0.00 - 0.01 K/cumm [facility] Blood 01/18/2025 10:2 5 AM CDT 01/18/2025 12:46 PM CDT Chiquita Delarosa NP LAB BLOOD ORDERABLES F inal Result Performing Organization Address City/State/[place] Co de Phone Number [facility] [place] [address] from Last 3 Months Insurance [facility] [place] [phone] CHO[place] Care Teams Motion Picture Projectionist Relationship Specialty Start Date End Date Miles Medina MD PCP - General 02/22/15
--- OUTSIDE RECORDS SUMMARY | 2025-02-26 11:27 | XMS_ITS | Clinical Summary ---
Author Organization [facility] Address [address] Nava: Epic Prelude ADT GISELE KOHLI [phone] Care Team Providers Care Fruit Or Nut Picker Name Role Phone Unavailable Primary Care Provider [...]
--- OUTSIDE RECORDS SUMMARY | 2025-02-26 11:27 | XMS_ITS | Clinical Summary ---
Author Organization [facility] al Address [address] [place] [address] Care Team Providers Care Medieval English Literature Professor Name Role Phone Miles Medina MD Primary Care Provider [phone] Allergies Active Allergy Reactions Criticality Noted Date [...] - CT initially performed on 10/21/2023 at [facility] and this is being compared to a prior study that was done on 06/13/23 at [facility]. This was uploaded for consult. - 08/21/22: + Mycobacterium Avium: Resistant: Amikacin, linezolid, moxifloxacin. Susceptible: Amikacin inhaled, clarithromycin, ciprofloxacin - multiple drug allergies including PCN (nausea/vomiting/diarrhea), Sulfa (christiano johnsons syndrome), tetracycline (rash). - Recommend inhaled hypertonic 3% saline to help clear secretions, as well as an Acapella device. She should be able to obtain these through her web content manager. - In regards to choice of treatment [...] - CT initially performed on 10/21/2023 at [facility] and this is being compared to a prior study that was done on 06/13/23 at [facility]. This was uploaded for consult. - 08/21/22: + Mycobacterium Avium: Resistant: Amikacin, linezolid, moxifloxacin. Susceptible: Amikacin inhaled, clarithromycin, ciprofloxacin - multiple drug allergies including PCN (nausea/vomiting/diarrhea), Sulfa (christiano johnsons syndrome), tetracycline (rash). - Recommend inhaled hypertonic 3% saline to help clear secretions, as well as an Acapella device. She should be able to obtain these through her web content manager. - In regards to choice of treatment [...] - 02/04/2025 11:59 PM CDT Hospital Encounter [facility] [address] [place] [id number] Pulmonary mycobacterial infection (HCC); Bronchiectasis without complication (HCC) Discharge Disposition: Discharge to home or self care 01/19/2025 Telephone [facility] Infect[facility] [address] [place] [phone] Yasmeen Loera CMA 01/18/2025 10:28 AM CDT - 01/18/2025 11:59 PM CDT Hospital Encounter [facility] [address] [place] [address] Discharge Disposition: Discharge to home or self care 01/18/2025 9:20 AM CDT Office Visit [facility] Infectious Diseases [address] [place] [phone] Chiquita Delarosa NP Pulmonary mycobacterial infection (HCC) (Primary Dx); Bronchiectasis without complication (HCC); Encounter for long-term (current) use of antibiotics 01/18/2025 Orders Only [facility] Infect[facility] Diseases [address] [place] [phone] Chiquita Delarosa NP Pulmonary mycobacterial infection (HCC) [...] on file 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 Gender Identity Female 12/03/2021 10:24 AM CDT [...] ORDERABLES F inal Result [facility] [place] [address] * eGFR (01/18/2025 10:25 AM CDT) eGFR [...] NP LAB BLOOD ORDERABLES F inal Result [facility] [place] [address] * Differential, auto (01/18/2025 10:25 AM CDT) Neutrophil abs 2.85 1.50 - 6.50 K/cumm Imm gran abs 0.01 0.00 - 0.10 K/cumm [facility] Lymphocyte abs 1.07 0.80 - 3.30 K/cumm [facility] Monocyte abs 0.72 0.20 - 0.80 K/cumm [facility] Eosinophil abs 0.11 0.00 - 0.50 K/cumm [facility] Basophil abs 0.02 0.00 - 0.10 K/cumm [facility] Neutrophil pct 59.6 % [facility] Comment: Interpretive Data Percent cell count reference ranges are not reported, since discordance with absolute values may lead to misinterpretation of CBC data. Current Interpretive Data was last revised on 2017. Imm gran pct 0.2 % [facility] Comment: Interpretive Data Percent cell count reference ranges are not reported, since discordance with absolute values may lead to misinterpretation of CBC data. Current Interpretive Data was last revised on 2017. Lymphocyte pct 22.4 % [facility] Comment: Interpretive Data Percent cell count reference ranges are not reported, since discordance with absolute values may lead to misinterpretation of CBC data. Current Interpretive Data was last revised on 2017. Monocyte pct 15.1 % [facility] Comment: Interpretive Data Percent cell count reference ranges are not reported, since discordance with absolute values may lead to misinterpretation of CBC data. Current Interpretive Data was last revised on 2017. Eosinophil pct 2.3 % [facility] Comment: Interpretive Data Percent cell count reference ranges are not reported, since discordance with absolute values may lead to misinterpretation of CBC data. Current Interpretive Data was last revised on 2017. Basophil pct 0.4 % [facility] Comment: Interpretive Data Percent cell count reference ranges are not reported, since discordance with absolute values may lead to misinterpretation of CBC data. Current Interpretive Data was last revised on 2017. Blood 01/18/2025 10:2 5 AM CDT 01/18/2025 12:46 PM CDT Chiquita Delarosa NP LAB BLOOD ORDERABLES F inal Result [facility] Department [place] [address] * Comprehensive metabolic panel, without glucose (Outreach) (01/18/2025 10:25 AM CDT) Sodium 142 135 - 145 mmol/L Potassium, pl 4.4 3.3 - 4.9 mmol/L [facility] Chloride 104 97 - 110 mmol/L [facility] CO2 28 22 - 32 mmol/L [facility] Anion gap 10 2 - 15 mmol/L [facility] BUN 13 6 - 25 mg/dL [facility] Creatinine 0.98 0.60 - 1.10 mg/dL [facility] Calcium 9.6 8.5 - 10.3 mg/dL [facility] Protein, pl 7.4 6.5 - 8.5 g/dL [facility] Albumin 4.2 3.5 - 5.0 g/dL [facility] Bilirubin, total 0.5 0.1 - 1.2 mg/dL [facility] Alk phos 77 40 - 130 Units/L [facility] AST 23 10 - 45 Units/L [facility] ALT 18 7 - 45 Units/L [facility] Blood 01/18/2025 10:2 5 AM CDT 01/18/2025 12:46 PM CDT Chiquita Delarosa NP LAB BLOOD ORDERABLES F inal Result Performing Organization Address [facility] Co de Phone Number [facility] Department [place] [address] * CBC with auto differential (01/18/2025 10:25 AM CDT) [facility] [address] WBC 4.78 3.80 - 9.90 K/cumm Hgb 13.1 11.9 - 15.5 g/dL [facility] Hct 39.1 35.6 - 45.5 % [facility] Plt 313 150 - 400 K/cumm [facility] MPV 9.8 9.1 - 12.3 fL [facility] RBC 4.23 3.90 - 5.20 M/cumm [facility] MCV 92.4 81.3 - 96.4 fL [facility] MCH 31.0 27.1 - 33.3 pg [facility] MCHC 33.5 32.3 - 35.7 g/dL [facility] RDW CV 12.8 11.1 - 14.9 % [facility] RDW SD 43.1 35.7 - 48.1 fL [facility] NRBC abs 0.00 0.00 - 0.01 K/cumm [facility] Blood 01/18/2025 10:2 5 AM CDT 01/18/2025 12:46 PM CDT Chiquita Delarosa NP LAB BLOOD ORDERABLES F inal Result Performing Organization Address City/[facility]/ZIP Co de Phone Number [facility] Department [place] [address] from Last 3 Months [facility] [place] [address] [place] Care Teams Medieval English Literature Professor Relationship Specialty Start Date End Date Miles Medina MD [facility] - General 02/22/15
--- OUTSIDE RECORDS SUMMARY | 2025-02-26 11:27 | XMS_ITS | Encounter Summary ---
Author Organization [facility] Address [address] [place] [address] Phone Care Team Providers Care Bid Analyst Name Role Phone Miles Medina MD Primary Care Provider [phone] Encounter Details Date Type Department Care Team (Late st Contact Info) Description 11/30/2021 Ophth Exam [facility] Op[facility]mology [address] [place] [address] 1[address] [place] [phone] Dg Zuniga MD [address] [place] [address] Social History Tobacco Use Types Packs/Day Years Used Date Smoking Tobacco: Never Assessed Comments No Sex and Gender Information Value Date Recorded Sex Assigned at Not on file Legal Sex Female 7: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
[2025-02-26] MEDS: IPRATROPIUM 0.5 MG/ALBUTEROL SULFATE 2.5 MG AMPUL.NEB 3 ML 12 ML INHALATION (11:35)
[2025-02-26 11:36] LABS: Hematocrit 38.6 % (37.0-47.0); Hemoglobin 12.8 g/dL (12.0-15.0); Immature Granulocyte Percent A 0.2 % (0-0.5); Lymphocytes Absolute Auto 0.34 K/mm3 (0.9-3.2); Mean Corpuscular HGB Conc 33.2 g/dl (32-36); Mean Corpuscular Hemoglobin 29.9 pg (26-34); Mean Corpuscular Volume 90.2 fl (80-100); Nucleated Red Blood Cells Absolute Auto 0.000 K/mm3 (0.0-0.012); Nucleated Red Blood Cells Perc 0.0 % (0.0-0.2); Platelet Count Result 255 k/mm3 (150-375); Red Blood Count 4.28 M/mm3 (4.2-5.4); White Blood Count 4.5 K/mm3 (4.5-10.0)
[2025-02-26] MEDS: SODIUM CHLORIDE 0.9% IV 1,000 ML 999 ML IV CONT (11:37)
[2025-02-26] MEDS: dexAMETHasone SOD PHOS INJ 10 MG/ML 1 ML VIAL IV PUSH (11:39)
[2025-02-26] MEDS: MAGNESIUM SULF 2 GM/WATER 50ML 2 GM/50 ML BAG IVPB (11:41)
[2025-02-26 11:46] LABS: INR 1.0; Prothrombin Time 13.2 Seconds (11.1-14.7)
[2025-02-26 11:46] LABS: Alveolar/Arterial O2 Gradient 38.4 mmHg; Fractional Inspired Oxygen 21 %; HCO3 ABG 19.2 mEq/l (22.0-26.0); Modified Allen's Test Pass; Oxygen Content ABG 17.8 %vol (16.0-22.0); Oxygen Saturation ABG 95.1 % (95.0-100.0); PCO2 ABG 31.3 mmHg (35.0-45.0); PO2 ABG 73.9 mmHg (80.0-100.0); PO2 FiO2 Ratio Arterial Blood 3.52 %; Site Drawn LEFT RADIAL
[2025-02-26 11:47] LABS: Partial Thromboplastin Time 22.9 Seconds (22.3-36.8)
[2025-02-26 11:47] LABS: Add Urine Microscopic? YES; Appearance Urine Cloudy (Clear); Glucose Urine UA Negative (Negative); Leukocyte Esterase Ur 2+ LEU/UL (Negative); Nitrate Urine Negative (Negative); Non Pathogenic Casts 0-2; Specific Grav Ur 1.031 (1.001-1.035)
[2025-02-26 12:02] LABS: Alanine Aminotransferase 21 U/L (6-35); Albumin Level 4.2 g/dL (3.5-5.1); Alkaline Phosphatase 61 U/L (38-126); Anion Gap 12 mmol/L (4-12); Aspartate Amino Transferase 31 U/L (14-36); Bilirubin,Total 0.5 mg/dL (0.2-1.3); Blood Urea Nitrogen 15 mg/dL (7-17); Calcium 8.7 mg/dL (8.4-10.2); Carbon Dioxide 20 mmol/L (22-30); Chloride 106 mmol/L (98-107); Estimated CRCL calculation 72 ml/min; Estimated Glomerular Filt Rate > 60; Glucose 102 mg/dL (65-110); Magnesium 1.7 mg/dL (1.6-2.3); Potassium 3.7 mmol/L (3.4-5.0); Sodium 138 mmol/L (137-145); Total Protein 7.4 g/dL (6.3-8.2)
[2025-02-26 12:09] LABS: NT Pro B Type Natriuretic Pept 203 pg/mL (19.9-100)
[2025-02-26] MEDS: SODIUM CHLORIDE 0.9% IV 1,500 ML 999 ML IV CONT (13:11)
[2025-02-26] MEDS: ACETAMINOPHEN 500 MG TABLET 1000 MG PO (13:18)
[2025-02-26] MEDS: PROCHLORPERAZINE EDISYLATE 10 MG/2 ML VIAL IM (13:56)
[2025-02-26 15:44] LABS: Troponin I < 0.012 ng/mL (0.000-0.034)
[2025-02-26 16:00] LABS: Troponin I < 0.012 ng/mL (0.000-0.034)
[2025-02-26 16:15] LABS: Influenza A QL RT-PCR Negative (Negative); Influenza B QL RT-PCR Negative (Negative); RSV RNA, RT-PCR Negative (Negative); SARS-CoV-2 RNA PCR Negative (Negative)
[2025-02-26] MEDS: levoFLOXacin 750 MG/D5W 150 ML 750 MG/150 ML BAG 100 MG IVPB (16:39)
--- NOTE | 2025-02-26 17:29 | P.HP_ITS ---
H&P: HPI History of Present Illness Date/Time: 02/26/25 17:29 Chief Complaint: Shortness of breath Narrative: 64-year-old female with past medical history of COPD, hypertension, pulmonary MAC presents the hospital with increased shortness of breath. Patient states that she wears 1 L of oxygen at home at night. Patient states that her shortness of breath has gotten worse. She is now short of breath at rest which she usually is not. She does complain of a productive cough. She has been taking her home medications as prescribed. She complains of not eating as much because she has not felt well. Denies fever chills. Chest CT shows no acute process, head CT was slightly dilated lateral ventricles, chest x-ray with no acute process. Patient will be admitted for COPD exacerbation. Review of Systems Review of Systems: 12 systems were reviewed and are negativ e except for as per HPI. [facility] Past Medical History Medical History Hypertension Chronic obstructive pulmonary disease Mycobacterium avium complex Mixed hyperlipidemia Surgical History Surgical History History of cholecystectomy Family History Family History Father Hypertension Family history of elevated blood lipids Mother Cerebrovascular accident Family history of diabetes mellitus in first degree relative Family history of coronary artery disease Acute myocardial infarction Sibling Family history of pancreatic cancer Sibling Heart disease Social History Social History Social History: Surrogate medical decision maker: Estephania Oconnor, sister. Code status: Full code. Smoking packs per day: 3 Smoking cigarettes per day: 60.0 Years smoked: 15 Smoking pack-years: 45.00 Smoking status: Former smoker Tobacco type: cigarettes Second hand tobacco smoke exposure: No Smoking end date: 08/18/98 Alcohol intake: never Substance use: never Substance use type: does not use Do You Feel Safe in your Home?: Yes Lack of Transportation: No Lack of Food: Never True Current Housing: I Have Housing Concerned About Future Housing: No Difficulty Paying Gas/Electric Bills: No Difficulty Paying for Meds: YES Currently Unemployed: No Education: Trade/Vocational Certificate Difficulty w/ Childcare or Family Care: No Living arrangements: alone Occupation/Education: retired 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 Spiritual care concerns: No Meds Home Medications and Allergies Home Medications ?Medication ?Instructions ?Recorded ?Confirmed ?Type albuterol sulfate 2.5 mg/3 mL 2.5 mg (3 mL) inhalation Q4-6H PRN 10/16/23 02/26/25 Rx (0.083 %) solution for nebulization shortness of breath or wheezing #180 mL guaifenesin 600 mg tablet, 1,200 mg (2 x 600 mg) PO Q12HR #60 10/28/23 02/26/25 Rx extended release 12 hr (Mucus tabs Relief ER) albuterol sulfate 90 mcg/actuation 1 inh inhalation Q4H PRN shortness 11/14/23 02/26/25 Rx aerosol inhaler (ProAir HFA) of breath or wheezing #6.7 grams azithromycin 500 mg tablet 500 mg PO .COMPLEX 08/09/24 02/26/25 History ethambutol 400 mg tablet 1,800 mg PO .COMPLEX atypical 08/09/24 02/26/25 History mycobacterial disease rifabutin 150 mg capsule 300 mg PO DAILY atypical 08/09/24 02/26/25 History mycobacterial infection sertraline 100 mg tablet 100 mg PO DAILY #90 tabs 12/08/24 02/26/25 Rx metoprolol succinate 50 mg 50 mg PO HS #30 tabs 02/02/25 02/26/25 Rx tablet,extended release 24 hr budesonide 160 mcg-glycopyr 9 See Rx Instructions .Route 02/21/25 02/26/25 Rx mcg-formot 4.8 mcg/actuation HFA .COMPLEX #11 grams inhaler (Breztri Aerosphere) Allergies Allergy/AdvReac Type Severity Reaction Status Date / Time Cephalosporins Allergy Unknown Unknown Verified 02/26/25 11:14 Penicillins Allergy Unknown Unknown Verified 02/26/25 11:14 Sulfa (Sulfonamide Allergy Unknown Unknown Verified 02/26/25 11:14 Antibiotics) sulfanilamide Allergy Unknown Unknown Verified 02/26/25 11:14 tetracycline Allergy Unknown Unknown Verified 02/26/25 11:14 ampicillin Allergy Rash Verified 02/26/25 11:14 Vital Signs Vital Signs - 24 hr 02/26/25 11:10 02/26/25 11:14 02/26/25 11:15 Temperature 97.7 F Pulse Rate 112 H 120 H 120 H Respiratory Rate 21 H 22 H Blood Pressure 173/84 H 173/84 H Pulse Oximetry 98 99 Oxygen Delivery Room Air 02/26/25 11:41 02/26/25 11:47 02/26/25 12:31 Temperature Pulse Rate 108 H 106 H 122 H Respiratory Rate 20 21 H 14 Blood Pressure 143/65 H 106/62 Pulse Oximetry 97 98 Oxygen Delivery 02/26/25 12:42 02/26/25 12:44 02/26/25 12:45 Temperature Pulse Rate 116 H 117 H Respiratory Rate 16 14 Blood Pressure 106/62 Pulse Oximetry 100 98 Oxygen Delivery Room Air 02/26/25 13:16 02/26/25 13:47 02/26/25 14:01 Temperature Pulse Rate 120 H 124 H 119 H Respiratory Rate 15 15 25 H Blood Pressure 116/58 L 116/58 L 123/64 Pulse Oximetry 94 96 96 Oxygen Delivery 02/26/25 14:27 02/26/25 15:11 02/26/25 15:48 Temperature Pulse Rate 113 H 118 H 111 H Respiratory Rate 18 24 H 15 Blood Pressure 120/57 L 118/49 L 134/57 L Pulse Oximetry 96 94 94 Oxygen Delivery 02/26/25 16:01 02/26/25 17:16 Temperature 98.6 F Pulse Rate 111 H 106 H Respiratory Rate 19 14 Blood Pressure 125/61 123/59 L Pulse Oximetry 95 96 Oxygen Delivery Exam Narrative: General: well appearing, appears stated age. HEENT: normocephalic, atraumatic. Mucous membranes moist. EOMI, PERRLA, bilateral sclera anicteric, no conjunctival injection. Neck supple without JVD, lymphadenopathy, or bruit. Respiratory: clear to ascultation bilaterally. No rales/rhonic/wheezes. Cardiovascular: Regular rate and rhythm, normal S1-S2 upon ascultation. No murmurs, rubs, or clicks. PMI is nondisplaced, capillary refill less than 3 second. Abdomen: Soft, round, no pulsatile masses, nondistended and nontender. No rebou nd, no guarding. No CVA tenderness, no hepatosplenomegaly. Bowel sounds present to all four quadrants. No high pitch or tinkling sounds, resonant to percussion. Extremities: No cyanosis, clubbing, or edema present. Pulses are palpable 2/2. Active ROM to all four extremities. Neuro: Alert and orientated x 4. PERRLA. Cranial nerves 2-12 intact without focal deficit. Skin: Warm, dry, and intact, without rash, erythema, or lesion. Psych: pleasant, cooperative, normal speech, normal affect, no hallucinations, no dysarthia H&P: Results Labs Labs: Short CBC 02/26/25 Range/Units 11:29 WBC 4.5 (4.5-10.0) K/mm3 Hgb 12.8 (12.0-15.0) g/dL Hct 38.6 (37.0-47.0) % Plt Count 255 (150-375) k/mm3 BMP 02/26/25 11:29 Sodium 138 Potassium 3.7 Chloride 106 Carbon Dioxide 20 L BUN 15 D Creatinine 0.77 Glucose 102 Calcium 8.7 Cardiac Enzymes 02/26/25 02/26/25 Range/Units 11:29 15:34 Troponin I < 0.012 < 0.012 (0.000-0.034) ng/mL Liver Function 02/26/25 Range/Units 11:29 Total Bilirubin 0.5 (0.2-1.3) mg/dL AST 31 (14-36) U/L ALT 21 (6-35) U/L Alkaline Phosphatase 61 (38-126) U/L Albumin 4.2 (3.5-5.1) g/dL Urine 02/26/25 Range/Units 11:36 Urine Color Dark yellow (Yellow) Urine Appearance Cloudy H (Clear) Urine pH 5.5 (5.0-9.0) Ur Specific [place] 1.031 (1.001-1.035) Urine Protein 1+ H (Negative) mg/dL Urine Glucose (UA) Negative (Negative) mg/dL Assessment and Plan Assessment and plan (1) COPD exacerbation: Code(s): J44.1 - Chronic obstructive pulmonary disease with (acute) exacerbation Status: Chronic Assessment and Plan: DuoNebs dexamethasone x1 Solu-Medrol q.6 Levofloxacin Guaifenesin (2) Acute respiratory failure with hypoxia: Code(s): J96.01 - Acute respiratory failure with hypoxia Status: Acute Assessment and Plan: See above (3) Pulmonary Mycobacterium avium complex (MAC) infection: Code(s): A31.0 - Pulmonary mycobacterial infection Status: Acute Assessment and Plan: Continue azithromycin, ethambutol, and rifautin (4) Hypertension: Code(s): I10 - Essential (primary) hypertension Status: Chronic Assessment and Plan: Continue metoprolol (5) UTI (urinary tract infection): Code(s): N39.0 - Urinary tract infection, site not specified Status: Acute Assessment and Plan: On Levaquin Cultures sensitivity pending (6) Depression: Code(s): F32.A - Depression, unspecified Status: Acute Assessment and Plan: Continue home Zoloft (7) Headache: Code(s): R51.9 - Headache, unspecified Status: Acute Assessment and Plan: Fioricet Quality VTE Prophylaxis VTE prophylaxis: mechanical ordered and pharmacologic ordered Hospitalist MIPS Advance Care Plan I have confirmed that the patient's Advanced Care Plan is present, code status is documented, or surrogate decision maker is listed in patient medical record.: Yes Medication Reconciliation I have utilized all available resources to obtain, update and review the patients current medications (includes all prescriptions, OTC, herbals, cannabis, and nutritional supplements).: Yes
--- NOTE | 2025-02-26 17:30 | ADMGEN ---
This patient, Liz Vanegas, was admitted to 2 Medical Room 242-. Patient/family oriented to hospital policies and general routines including ID bracelet, bed and alarms, visiting hours, pain management, procedures, bathroom and other care routines, personal items, smoking policy, room service/diet, and visiting hours. Information on how to activate the Rapid Response Team has been discussed. Patient/Family are encouraged to report perceived risks to care and to ask questions if they do not understand what they are told or what they should do.
[2025-02-26] MEDS: ACETAMINOPHEN 325 MG TABLET 650 MG PO (19:16)
[2025-02-26] MEDS: IPRATROPIUM 0.5 MG/ALBUTEROL SULFATE 2.5 MG AMPUL.NEB 3 ML INHALATION (19:49)
[2025-02-26] MEDS: guaiFENesin 12 HR 600 MG TABCR 1200 MG PO (20:04)
[2025-02-26] MEDS: SODIUM CHLORIDE 0.9% IV 1,000 ML 100 ML IV CONT (20:04)
[2025-02-26] MEDS: METOPROLOL SUCCINATE EXT REL 50 MG TABCR PO (20:05)
[2025-02-27] VITALS (17 sets, daily range): BP systolic 141–163; BP diastolic 67–74; PULSE 76–100; RESP 12–20; TEMP 36.3–37; O2SAT 95–100
[2025-02-27] MEDS: IPRATROPIUM 0.5 MG/ALBUTEROL SULFATE 2.5 MG AMPUL.NEB 3 ML INHALATION ×4 (02:43→19:59)
--- NOTE | 2025-02-27 05:00 | ECG_ITS ---
Test Date: 2025-02-27 09:31:03 Measurements Intervals [place] Rate: 94 P: 68 WY: 132 QRS: 59 QRSD: 85 T: 73 QT: 349 QTc: 439 Interpretive Statements SINUS RHYTHMWITH SHORT W[place] INTERVAL NONSPECIFIC ST ABNORMALITY ABNORMAL ECG Electronically Signed On 02-27-2025 11:40:51 CDT by Demetris Pickard M.D.
[2025-02-27 05:32] LABS: Hematocrit 35.6 % (37.0-47.0); Hemoglobin 11.6 g/dL (12.0-15.0); Immature Granulocyte Percent A 1.1 % (0-0.5); Lymphocytes Absolute Auto 0.45 K/mm3 (0.9-3.2); Mean Corpuscular HGB Conc 32.6 g/dl (32-36); Mean Corpuscular Hemoglobin 29.9 pg (26-34); Mean Corpuscular Volume 91.8 fl (80-100); Nucleated Red Blood Cells Absolute Auto 0.000 K/mm3 (0.0-0.012); Nucleated Red Blood Cells Perc 0.0 % (0.0-0.2); Platelet Count Result 255 k/mm3 (150-375); Red Blood Count 3.88 M/mm3 (4.2-5.4); White Blood Count 2.8 K/mm3 (4.5-10.0)
[2025-02-27 05:56] LABS: Anion Gap 8 mmol/L (4-12); Blood Urea Nitrogen 10 mg/dL (7-17); Calcium 8.5 mg/dL (8.4-10.2); Carbon Dioxide 22 mmol/L (22-30); Chloride 111 mmol/L (98-107); Estimated CRCL calculation 83 ml/min; Estimated Glomerular Filt Rate > 60; Glucose 123 mg/dL (65-110); Potassium 4.9 mmol/L (3.4-5.0); Sodium 141 mmol/L (137-145)
[2025-02-27] MEDS: SODIUM CHLORIDE 0.9% IV 1,000 ML 100 ML IV CONT ×2 (06:06→16:11)
[2025-02-27] MEDS: guaiFENesin 12 HR 600 MG TABCR 1200 MG PO ×2 (10:02→20:50)
[2025-02-27] MEDS: SERTRALINE HCL 50 MG TABLET 100 MG PO (10:02)
[2025-02-27] MEDS: ENOXAPARIN 40 MG/0.4 ML SYRINGE SUB-Q (10:03)
--- NOTE | 2025-02-27 10:27 | PHAR ---
HOME MED BREZTRI 160 mcg/9 mcg/4.8 mcg PER INHALATION INHALER; VERIFIED BY PHARMACY.
[2025-02-27] MEDS: BREZTRI 2 EACH INHALATION ×2 (10:35→20:00)
--- NOTE | 2025-02-27 11:42 | P.PNIM_ITS ---
Progress Note: A&P Assessment and Plan (1) COPD exacerbation: Code(s): J44.1 - Chronic obstructive pulmonary disease with (acute) exacerbation Status: Chronic Assessment and Plan: DuoNebs dexamethasone x1 Solu-Medrol q.6 Levofloxacin Guaifenesin 02/27/25 * Continue nebs, abx, cough meds, and steroids. 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 * Likely acute on chronic exacerbation of COPD. (2) Acute respiratory failure with hypoxia: Code(s): J96.01 - Acute respiratory failure with hypoxia Status: Acute Assessment and Plan: See above (3) Pulmonary Mycobacterium avium complex (MAC) infection: Code(s): A31.0 - Pulmonary mycobacterial infection Status: Acute Assessment and Plan: Continue azithromycin, ethambutol, and rifautin 02/27/25: * Continue Rifabutin and Ethambutol for MAC upon receiving it. Family bringing it from home. * Trend VS w/oxygen sats * CXR independently reviewed by myself and is without any acute consolidation. (4) Hypertension: Code(s): I10 - Essential (primary) hypertension Status: Chronic Assessment and Plan: Continue metoprolol 02/27/25: * Stable BP trend. * Monitor (5) UTI (urinary tract infection): Code(s): N39.0 - Urinary tract infection, site not specified Status: Acute Assessment and Plan: On Levaquin Cultures sensitivity pending 02/27/25: * Pt's UA actually appears to be contaminated with moderate amount of epithelials, therefore no reflex to culture was initiated. * Will order separate Urine culture and continue Levaquin for now. (6) Depression: Code(s): F32.A - Depression, unspecified Status: Chronic Assessment and Plan: Continue home Zoloft (7) Headache: Code(s): R51.9 - Headache, unspecified Status: Chronic Assessment and Plan: Fioricet Time Spent With Patient Time with patient: 15 - 25 minutes Subjective Date/time seen: 02/27/25 11:42 Interval history: This is a very pleasant 64 year old female pt that was examined at the bedside today in interval assessment since being admitted for COPD exacerbation. She is receiving Levaquin, Solumedrol. Mucinex and Azithromycin. She has had a negative CXR and negative viral panel. 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 She currently states she is feeling a little bit better as compared to yesterday. No new complaints or symptoms to report. Review of Systems Review of Systems: All systems reviewed & are unremarkable except as noted in HPI and below Exam Const: General: comfortable and no acute distress Other: Sitting up in bed in no acute distress. HENMT: Face/Nose/Sinus: Normal nares present Mouth: Yes moist mucous membranes Eyes: General: appearance normal, both eyes and all related structures Neck: Neck: supple and no JVD Lymphatic: lymphadenopathy not noted Resp: Effort & Inspection: normal respiratory effort Auscultation: rhonchi (Throughout all reilly, coarse rhonchi) Cardio: Rate: regular rate Rhythm: regular rhythm GI: Inspection: non-distended GI Palp: Yes Soft to palpation and No Tenderness to palpation present (GI) Auscultation: normal bowel sounds Skin: General skin exam: normal color, no rashes or lesions noted and no erythema Neuro: General: gait normal Speech: normal speech Motor exam (neuro): 5/5 motor strength present throughout and Normal motor muscle tone present throughout Sensory Exam: normal sensation Extrem: General: normal to inspection, no edema and no pedal edema Other: Freely and equally MAEW without deficit. Psych: Mental Status: mental status grossly normal Objective Data Vital Signs Vital Signs: Vital Signs - 24 hr 02/26/25 11:47 02/26/25 12:31 02/26/25 12:42 Temperature Pulse Rate 106 H 122 H 116 H Respiratory Rate 21 H 14 16 Blood Pressure 106/62 106/62 Pulse Oximetry 98 100 Oxygen Delivery Oxygen Flow Rate Fraction of Inspired Oxygen 02/26/25 12:44 02/26/25 12:45 02/26/25 13:16 Temperature Pulse Rate 117 H 120 H Respiratory Rate 14 15 Blood Pressure 116/58 L Pulse Oximetry 98 94 Oxygen Delivery Room Air Oxygen Flow Rate Fraction of Inspired Oxygen 02/26/25 13:47 02/26/25 14:01 02/26/25 14:27 Temperature Pulse Rate 124 H 119 H 113 H Respiratory Rate 15 25 H 18 Blood Pressure 116/58 L 123/64 120/57 L Pulse Oximetry 96 96 96 Oxygen Delivery Oxygen Flow Rate Fraction of Inspired Oxygen 02/26/25 15:11 02/26/25 15:48 02/26/25 16:01 Temperature Pulse Rate 118 H 111 H 111 H Respiratory Rate 24 H 15 19 Blood Pressure 118/49 L 134/57 L 125/61 Pulse Oximetry 94 94 95 Oxygen Delivery Oxygen Flow Rate Fraction of Inspired Oxygen 02/26/25 17:16 02/26/25 17:30 02/26/25 19:53 Temperature 98.6 F Pulse Rate 106 H 111 H 93 Respiratory Rate 14 20 20 Blood Pressure 123/59 L 135/68 Pulse Oximetry 96 97 Oxygen Delivery Oxygen Flow Rate Fraction of Inspired Oxygen 02/26/25 19:54 02/26/25 20:00 02/26/25 20:00 Temperature Pulse Rate 93 121 H Respiratory Rate 20 Blood Pressure Pulse Oximetry 99 99 Oxygen Delivery Room Air Nasal Cannula Oxygen Flow Rate 1.5 Fraction of Inspired Oxygen 21 02/26/25 20:05 02/26/25 20:13 02/26/25 22:00 Temperature 97.6 F Pulse Rate 97 92 99 Respiratory Rate 20 18 Blood Pressure 146/55 H Pulse Oximetry 96 Oxygen Delivery Oxygen Flow Rate Fraction of Inspired Oxygen 02/27/25 00:00 02/27/25 02:44 02/27/25 02:53 Temperature Pulse Rate 79 76 81 Respiratory Rate 20 20 Blood Pressure Pulse Oximetry Oxygen Delivery Oxygen Flow Rate Fraction of Inspired Oxygen 02/27/25 04:00 02/27/25 06:00 02/27/25 07:15 Temperature 97.5 F L Pulse Rate 81 90 88 Respiratory Rate 18 20 Blood Pressure 152/74 H Pulse Oximetry 100 Oxygen Delivery Oxygen Flow Rate Fraction of Inspired Oxygen 02/27/25 07:15 02/27/25 07:25 02/27/25 08:00 Temperature Pulse Rate 88 83 Respiratory Rate 20 20 Blood Pressure Pulse Oximetry 100 Oxygen Delivery Room Air Room Air Oxygen Flow Rate Fraction of Inspired Oxygen 21 02/27/25 08:00 Temperature Pulse Rate 91 Respiratory Rate Blood Pressure Pulse Oximetry Oxygen Delivery Oxygen Flow Rate Fraction of Inspired Oxygen Intake/Output Intake/Output: Intake & Output 02/24/25 02/25/25 02/26/25 02/27/25 23:59 23:59 23:59 23:59 Intake Total 3290 1400 Balance 3290 1400 Meds/Results Medications: Active Medications Generic Name Dose Route Start Last Admin Trade Name Freq PRN Reason Stop Dose Admin Acetaminophen 650 mg 02/26/25 17:42 02/26/25 19:16 Acetaminophen 325 Mg Tablet PO 650 mg Q4H PRN Administration Mild Pain (1-3)/ FEVER Acetaminophen/Butalbital/Caffeine 1 tab 02/26/25 21:49 Acetaminophen/Butalbital/Caffeine 325-50-40 Mg Tablet (Fioricet) PO Q4H PRN Headache Albuterol/Ipratropium 3 ml 02/26/25 20:00 02/27/25 07:18 Ipratropium 0.5 Mg/Albuterol Sulfate 2.5 Mg Ampul.Neb 3 Ml INHALATION 3 ml Q6HRT FLORECITA Administration Azithromycin 500 mg 02/28/25 09:00 Azithromycin 250 Mg Tablet PO [facility] Enoxaparin Sodium 40 mg 02/27/25 09:00 02/27/25 10:03 Enoxaparin 40 Mg/0.4 Ml Syringe SUB-Q 40 mg DAILY FLORECITA Administration Ethambutol HCl 1,600 mg 02/28/25 09:00 Ethambutol Hcl 400 Mg Tablet PO [facility] Ethambutol HCl 200 mg 02/28/25 09:00 Ethambutol Hcl 200 Mg Tablet PO [facility] Guaifenesin 1,200 mg 02/26/25 21:00 02/27/25 10:02 Guaifenesin 12 Hr 600 Mg Tabcr PO 1,200 mg Q12HR FLORECITA Administration Levofloxacin/Dextrose 750 mg in 150 mls @ 100 mls/hr 02/27/25 16:00 Levaquin 750 Mg/D5w 150 Ml IVPB Q24H FLORECITA Sodium Chloride 1,000 mls @ 100 mls/hr 02/26/25 17:45 02/27/25 06:06 Normal Saline Iv IV CONT 100 mls/hr .Q10H FLORECITA Administration Methylprednisolone Sodium Succinate 60 mg 02/26/25 18:00 02/27/25 06:06 Methylprednisolone Sod Succ 125 Mg Vial IV PUSH 60 mg Q6HR FLORECITA Administration Metoprolol Succinate 50 mg 02/26/25 21:00 02/26/25 20:05 Metoprolol Succinate Ext Rel 50 Mg Tabcr PO 50 mg HS FLORECITA Administration Miscellaneous Information 0 each 02/27/25 00:01 Rifabutin Nonform Can Pt Bring From Home? XX 03/29/25 00:00 CLARIFY FLORECITA Non-Formulary Medication 300 mg 02/27/25 09:00 Rifabutin PO 03/29/25 08:59 DAILY FLORECITA Home Med Breztri 2 puff(s) 02/27/25 10:30 160 Mcg/9 Mcg/4.8 INHALATION 03/29/25 10:29 Mcg Q12HRT FLORECITA Sertraline HCl 100 mg 02/27/25 09:00 02/27/25 10:02 Sertraline Hcl 50 Mg Tablet PO 100 mg DAILY FLORECITA Administration Radiology Results: ITS Impressions Chest X-Ray 02/26/25 12:44 IMPRESSION: 1. No acute cardiopulmonary disease. Head CT 02/26/25 14:35 IMPRESSION: No acute intracranial findings. Slight dilatation of the lateral ventricles. Follow-up advised. Chest CT 02/26/25 14:45 IMPRESSION: 1. No acute cardiopulmonary pathology. 2. Small sliding hiatus hernia. Labs Labs: Laboratory Results - last 24 hr 02/26/25 02/26/25 02/26/25 11:29 11:36 11:40 WBC 4.5 RBC 4.28 Hgb 12.8 Hct 38.6 MCV 90.2 MCH 29.9 MCHC 33.2 RDW 12.7 Plt Count 255 MPV 8.8 Immature Gran % (Auto) 0.2 Neut % (Auto) 79.5 H Lymph % (Auto) 7.6 L Pepin % (Auto) 11.2 H Eos % (Auto) 1.3 Baso % (Auto) 0.2 Lymph # (Auto) 0.34 L Pepin # (Auto) 0.5 Eos # (Auto) 0.1 Baso # (Auto) 0.0 Abs Immat Gran (auto) 0.01 Absolute Neuts (auto) 3.5 Absolute Nucleated RBC 0.000 Nucleated RBC % 0.0 PT 13.2 INR 1.0 APTT 22.9 D-Dimer 0.47 Puncture Site Left radial ABG pH 7.405 ABG pCO2 31.3 L ABG pO2 73.9 L ABG PO2/FiO2 Ratio 3.52 ABG HCO3 19.2 L ABG O2 Saturation 95.1 ABG O2 Content 17.8 ABG Base Excess -4.5 A-a Gradient 38.4 Oxyhemoglobin 94.4 Total Hemoglobin 13.4 O2 Delivery Device Room air O2 Liters/Min Not Reportable FiO2 21 Sodium 138 Potassium 3.7 Chloride 106 Carbon Dioxide 20 L Anion Gap 12 BUN 15 D Creatinine 0.77 Estim Creat Clear Calc 72 Estimated GFR > 60 Glucose 102 Calcium 8.7 Magnesium 1.7 Total Bilirubin 0.5 AST 31 ALT 21 Alkaline Phosphatase 61 Troponin I < 0.012 NT-Pro-B Natriuret Pep 203 H Total Protein 7.4 Albumin 4.2 Urine Color Dark yellow Urine Appearance Cloudy H Urine pH 5.5 Ur Specific [place] 1.031 Urine Protein 1+ H Urine Glucose (UA) Negative Urine Ketones Trace H Ur Blood (Man) Negative Urine Nitrate Negative Urine Bilirubin Negative Urine Urobilinogen 1.0 Leukocyte Esterase Rfl 2+ H Urine RBC 0-2 Urine WBC 11-20 H Ur Squamous Epith Cells Moderate Urine Bacteria Rare Urine Casts 0-2 Influenza A (RT-PCR) Influenza B (RT-PCR) RSV (RT-PCR) SARS-CoV-2 RNA (RT-PCR) 02/26/25 02/27/25 15:34 04:57 WBC 2.8 L RBC 3.88 L Hgb 11.6 L Hct 35.6 L MCV 91.8 MCH 29.9 MCHC 32.6 RDW 12.7 Plt Count 255 MPV 9.2 Immature Gran % (Auto) 1.1 H Neut % (Auto) 77.6 H Lymph % (Auto) 16.0 L Pepin % (Auto) 5.3 Eos % (Auto) 0.0 Baso % (Auto) 0.0 L Lymph # (Auto) 0.45 L Pepin # (Auto) 0.2 Eos # (Auto) 0.0 Baso # (Auto) 0.0 Abs Immat Gran (auto) 0.03 Absolute Neuts (auto) 2.2 Absolute Nucleated RBC 0.000 Nucleated RBC % 0.0 PT INR APTT D-Dimer Puncture Site ABG pH ABG pCO2 ABG pO2 ABG PO2/FiO2 Ratio ABG HCO3 ABG O2 Saturation ABG O2 Content ABG Base Excess A-a Gradient Oxyhemoglobin Total Hemoglobin O2 Delivery Device O2 Liters/Min FiO2 Sodium 141 Potassium 4.9 Chloride 111 H Carbon Dioxide 22 Anion Gap 8 BUN 10 D Creatinine 0.66 L Estim Creat Clear Calc 83 Estimated GFR > 60 Glucose 123 H Calcium 8.5 Magnesium Total Bilirubin AST ALT Alkaline Phosphatase Troponin I < 0.012 NT-Pro-B Natriuret Pep Total Protein Albumin Urine Color Urine Appearance Urine pH Ur Specific [place] Urine Protein Urine Glucose (UA) Urine Ketones Ur Blood (Man) Urine Nitrate Urine Bilirubin Urine Urobilinogen Leukocyte Esterase Rfl Urine RBC Urine WBC Ur Squamous Epith Cells Urine Bacteria Urine Casts Influenza A (RT-PCR) Negative Influenza B (RT-PCR) Negative RSV (RT-PCR) Negative SARS-CoV-2 RNA (RT-PCR) Negative Quality VTE Prophylaxis VTE prophylaxis: pharmacologic ordered
--- NOTE | 2025-02-27 12:51 | PHAR ---
HOME MED RIFABUTIN 150 MG CAPS; TAKE TWO CAPSULES BY MOUTH EVERY DAY. NURSE CALLED AND SAID PATIENT STATES THE DIRECTIONS ON HOW TO TAKE THE MED HAVE CHANGED SINCE SHE FILLED THIS MEDICATION LAST AND SHE NOW TAKES 2 CAPSULES MON, WED, FRI. MEDICATION VERIFIED BY PHARMACY.
[2025-02-27] MEDS: levoFLOXacin 750 MG/D5W 150 ML 750 MG/150 ML BAG 100 MG IVPB (16:13)
[2025-02-27] MEDS: guaiFENesin/CODEINE (*CRX) 200/20 MG 10 ML SYRUP PO (16:52)
[2025-02-27] MEDS: METOPROLOL SUCCINATE EXT REL 50 MG TABCR PO (20:49)
[2025-02-28] VITALS (15 sets, daily range): BP systolic 146–170; BP diastolic 69–81; PULSE 70–104; RESP 16–20; TEMP 36.1–36.5; O2SAT 95–99
[2025-02-28] MEDS: ACETAMINOPHEN 325 MG TABLET 650 MG PO ×2 (03:39→20:36)
[2025-02-28] MEDS: SODIUM CHLORIDE 0.9% IV 1,000 ML 100 ML IV CONT (03:40)
--- NOTE | 2025-02-28 07:01 | P.PNIM_ITS ---
Progress Note: A&P Assessment and Plan (1) Acute respiratory failure with hypoxia: Code(s): J96.01 - Acute respiratory failure with hypoxia Status: Acute Assessment and Plan: Secondary to COPD exacerbation and MAC - SpO2: stable on room air - Oxygen supplementation: 1L NC overnight - Suspected cause: COPD exacerbation - D dimer negative - Chest CT showed no acute cardiopulmonary process Remains on room air during the day. (2) COPD exacerbation: Code(s): J44.1 - Chronic obstructive pulmonary disease with (acute) exacerbation Status: Chronic Assessment and Plan: Chest CT showed no acute cardiopulmonary process Likely acute on chronic exacerbation of COPD. Antibiotic: Levaquin started on 02/27, discontinues per pulmonology. 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 separate urine culture ordered - UC obtained on 02/27: pending - No previous micro to be reviewed - started on levaquin on 02/27, however patient has no UTI symptoms. DC levaquin. (4) Pulmonary Mycobacterium avium complex (MAC) infection: Code(s): A31.0 - Pulmonary mycobacterial infection Status: Acute Assessment and Plan: Continue Rifabutin and Ethambutol for MAC MWF Trend VS w/oxygen sats (5) Hypertension: Code(s): I10 - Essential (primary) hypertension Status: Chronic Assessment and Plan: Continue metoprolol 50 mg daily Continue to monitor (6) Depression: Code(s): F32.A - Depression, unspecified Status: Chronic Assessment and Plan: Continue home Zoloft (7) Headache: Code(s): R51.9 - Headache, unspecified Status: Chronic Assessment and Plan: Fioricet Time Spent With Patient Time with patient: 25 - 35 minutes Subjective Date/time seen: 07/14/25 07:01 Interval history: 64-year-old female with past medical history of COPD, hypertension, pulmonary MAC presents the hospital with increased shortness of breath. Patient is pleasant sitting up comfortably in her chair with family at bedside. She continues to endorse shortness of breath but states that this is improving from admission. Shortness of breath is further exacerbated with exertion. She has no other complaints denying chest pain, palpitations, nausea/vomiting, and abdominal pain. Patient has a urine culture pending however she has no complaints of UTI like symptoms including dysuria, burning, increased urgency/frequency, and blood in the urine. Review of Systems Review of Systems: All systems reviewed & are unremarkable except as noted in HPI and below Exam Narrative: AF HR 95 RR 20 SpO2 97 BP 146/71 General: female in no acute respiratory distress who is nontoxic appearing, sitting up in chair HEENT: Normocephalic. Atraumatic. Extraocular movement intact. Sclera clear and anicteric. No facial asymmetry. Chest: Lungs have wheezing to auscultation bilaterally. No crackles. CV: Heart was regular rate and rhythm. S1-S2. No murmurs, gallops, or rubs. Abd: Abdomen was soft. Slight tenderness to hypogastric region without guarding. Nondistended. Positive bowel sounds. No organomegaly or masses. Ext: No clubbing, cyanosis, or edema. DP pulses bilaterally. Neuro: Patient is alert. Speech is clear. Objective Data Vital Signs Vital Signs: Vital Signs - 24 hr 02/27/25 07:15 02/27/25 07:15 02/27/25 07:25 Temperature Pulse Rate 88 88 83 Respiratory Rate 20 20 20 Blood Pressure Pulse Oximetry 100 Oxygen Delivery Room Air Fraction of Inspired Oxygen 21 02/27/25 08:00 02/27/25 08:00 02/27/25 12:00 Temperature Pulse Rate 91 86 Respiratory Rate Blood Pressure Pulse Oximetry Oxygen Delivery Room Air Fraction of Inspired Oxygen 02/27/25 13:55 02/27/25 14:00 02/27/25 14:05 Temperature 98.6 F Pulse Rate 78 98 79 Respiratory Rate 20 12 20 Blood Pressure 141/67 H Pulse Oximetry 95 Oxygen Delivery Fraction of Inspired Oxygen 02/27/25 20:00 02/27/25 20:02 02/27/25 20:03 Temperature Pulse Rate 90 88 90 Respiratory Rate 20 Blood Pressure Pulse Oximetry 97 Oxygen Delivery Room Air Fraction of Inspired Oxygen 21 02/27/25 20:32 02/27/25 20:49 02/28/25 00:00 Temperature 97.4 F L Pulse Rate 100 100 100 Respiratory Rate 16 Blood Pressure 163/74 H Pulse Oximetry 97 Oxygen Delivery Fraction of Inspired Oxygen 02/28/25 04:00 02/28/25 05:44 Temperature 97 F L Pulse Rate 87 77 Respiratory Rate 20 Blood Pressure 170/81 H Pulse Oximetry 99 Oxygen Delivery Fraction of Inspired Oxygen Intake/Output Intake/Output: Intake & Output 02/25/25 02/26/25 02/27/25 02/28/25 23:59 23:59 23:59 23:59 Intake Total 3290 3070 1300 Balance 3290 3070 1300 Meds/Results Medications: Active Medications Generic Name Dose Route Start Last Admin Trade Name Freq PRN Reason Stop Dose Admin Acetaminophen 650 mg 02/26/25 17:42 02/28/25 03:39 Acetaminophen 325 Mg Tablet PO 650 mg Q4H PRN Administration Mild Pain (1-3)/ FEVER Acetaminophen/Butalbital/Caffeine 1 tab 02/26/25 21:49 Acetaminophen/Butalbital/Caffeine 325-50-40 Mg Tablet (Fioricet) PO Q4H PRN Headache Albuterol/Ipratropium 3 ml 02/26/25 20:00 02/28/25 04:46 Ipratropium 0.5 Mg/Albuterol Sulfate 2.5 Mg Ampul.Neb 3 Ml INHALATION Not Given Q6HRT [facility] Azithromycin 500 mg 02/28/25 09:00 Azithromycin 250 Mg Tablet PO MoWe [facility] Enoxaparin Sodium 40 mg 02/27/25 09:00 02/27/25 10:03 Enoxaparin 40 Mg/0.4 Ml Syringe SUB-Q 40 mg DAILY FLORECITA Administration Ethambutol HCl 1,600 mg 02/28/25 09:00 Ethambutol Hcl 400 Mg Tablet PO MoWeFr [facility] Ethambutol HCl 200 mg 02/28/25 09:00 Ethambutol Hcl 200 Mg Tablet PO MoWeFr [facility] Guaifenesin 1,200 mg 02/26/25 21:00 02/27/25 20:50 Guaifenesin 12 Hr 600 Mg Tabcr PO 1,200 mg Q12HR FLORECITA Administration Guaifenesin/Codeine Phosphate 10 ml 02/27/25 16:18 02/27/25 16:52 Guaifenesin/Codeine (*Crx) 200/20 Mg 10 Ml Syrup PO 10 ml Q4H PRN Administration Cough Levofloxacin/Dextrose 750 mg in 150 mls @ 100 mls/hr 02/27/25 16:00 02/27/25 16:13 Levaquin 750 Mg/D5w 150 Ml IVPB 100 mls/hr Q24H FLORECITA Administration Sodium Chloride 1,000 mls @ 100 mls/hr 02/26/25 17:45 02/28/25 03:40 Normal Saline Iv IV CONT 100 mls/hr .Q10H [facility]ORECITA Administration Methylprednisolone Sodium Succinate 60 mg 02/26/25 18:00 02/28/25 05:17 Methylprednisolone Sod Succ 125 Mg Vial IV PUSH 60 mg Q6HR [facility] Administration Metoprolol Succinate 50 mg 02/26/25 21:00 02/27/25 20:49 Metoprolol Succinate Ext Rel 50 Mg Tabcr PO 50 mg HS FLORECITA Administration Home Med 300 mg 02/28/25 09:00 Rifabutin 150 Mg PO 03/30/25 08:59 Capsule MoWeFr@[id number] [facility] Home Med Breztri 2 puff(s) 02/27/25 10:30 02/27/25 20:00 160 Mcg/9 Mcg/4.8 INHALATION 03/29/25 10:29 2 puff(s) Mcg Q12HRT FLORECITA Administration Sertraline HCl 100 mg 02/27/25 09:00 02/27/25 10:02 Sertraline Hcl 50 Mg Tablet PO 100 mg DAILY FLORECITA Administration Radiology Results: ITS Impressions Chest X-Ray 02/26/25 12:44 IMPRESSION: 1. No acute cardiopulmonary disease. Head CT 02/26/25 14:35 IMPRESSION: No acute intracranial findings. Slight dilatation of the lateral ventricles. Follow-up advised. Chest CT 02/26/25 14:45 IMPRESSION: 1. No acute cardiopulmonary pathology. 2. Small sliding hiatus hernia. Quality VTE Prophylaxis VTE prophylaxis: pharmacologic ordered
[2025-02-28] MEDS: IPRATROPIUM 0.5 MG/ALBUTEROL SULFATE 2.5 MG AMPUL.NEB 3 ML INHALATION ×3 (07:59→20:12)
[2025-02-28] MEDS: BREZTRI 2 EACH INHALATION (07:59)
[2025-02-28 08:27] LABS: Hematocrit 36.9 % (37.0-47.0); Hemoglobin 12.2 g/dL (12.0-15.0); Mean Corpuscular HGB Conc 33.1 g/dl (32-36); Mean Corpuscular Hemoglobin 30.1 pg (26-34); Mean Corpuscular Volume 91.1 fl (80-100); Platelet Count Result 306 k/mm3 (150-375); Red Blood Count 4.05 M/mm3 (4.2-5.4); White Blood Count 9.3 K/mm3 (4.5-10.0)
[2025-02-28 08:56] LABS: Alanine Aminotransferase 29 U/L (6-35); Albumin Level 3.9 g/dL (3.5-5.1); Alkaline Phosphatase 55 U/L (38-126); Anion Gap 10 mmol/L (4-12); Aspartate Amino Transferase 52 U/L (14-36); Bilirubin,Total 0.3 mg/dL (0.2-1.3); Blood Urea Nitrogen 11 mg/dL (7-17); Calcium 8.6 mg/dL (8.4-10.2); Carbon Dioxide 19 mmol/L (22-30); Chloride 110 mmol/L (98-107); Estimated CRCL calculation 75 ml/min; Estimated Glomerular Filt Rate > 60; Glucose 129 mg/dL (65-110); Potassium 4.0 mmol/L (3.4-5.0); Sodium 139 mmol/L (137-145); Total Protein 6.7 g/dL (6.3-8.2)
[2025-02-28] MEDS: guaiFENesin 12 HR 600 MG TABCR 1200 MG PO ×2 (09:29→20:32)
[2025-02-28] MEDS: SERTRALINE HCL 50 MG TABLET 100 MG PO (09:29)
[2025-02-28] MEDS: ENOXAPARIN 40 MG/0.4 ML SYRINGE SUB-Q (09:30)
[2025-02-28] MEDS: RIFABUTIN 150 MG 300 EACH PO (09:31)
--- NOTE | 2025-02-28 10:19 | P.CONPL_ITS ---
Assessment and Plan Assessment and plan (1) COPD exacerbation: Code(s): J44.1 - Chronic obstructive pulmonary disease with (acute) exacerbation Status: Chronic Assessment and Plan: patient is followed in the Pulmonary Clinic in last seen on 08/09/2024: at that time she described moderate coughing, no sputum production, significant chest tightness improved with rescue albuterol cooks in the microwave, does not have much energy cat score 09/06/2039. Was working 4 hours shifts at [employer] for 20 hours a week. Maintained on breztri, rescue albuterol, p.r.n. guaifenesin. prescribed no oxygen at rest, no oxygen with activity, 2 L at night. She has severe obstructive ventilatory impairment by recent PFTs 06/21/2024, FEV1 1.29 L, 44%; FEV1/FVC ratio 43%; +28% increase in FEV1 with bronchodilator, Air trapping, moderately decreased DLCO that corrected for alveolar volume. This is essentially unchanged compared to 06/06/2023. Plan was to continue breztri, prescribed Ohtuvayre. today patient tells me this medicine cost 600 dollars a month even with cost reduction. At baseline patient had improved and 3-4 weeks ago started a walking program and was walking 1 mi over 40 minutes with a heart rate of 100. Her room air saturations were 97%. For the last 2 months she had no cough and no phlegm production which was better for her. On 02/21/2025 the patient developed fatigue. On 02/22/2025 the patient developed increased cough, rest shortness of breath, dyspnea on exertion and increased phlegm production. These symptoms progressed over the next 3 days and she presented to the emergency room on 02/26/2025. Her blood pressure was 173/84, heart rate 120, room air saturations 99%, temperature 97.7?. She had scattered wheezes. White blood cell count 4.5, creatinine 0.77, BNP 203, COVID influenza and RSV RT PCR negative. Room air blood gas 7.41/31/74. CT scan of the chest showed minimal apical scarring, no bullous emphysema, no tree-in-bud infiltrates, no cavities, no masses or nodules. Patient was started on Solu- Medrol, bronchodilators, Levaquin and her azithromycin, ethambutol rifabutin worst continued 3 times a day. 02/27/2025: Patient was feeling better. Room air saturations 96-99%. White blood cell count 2.8, creatinine 0.66. 02/28/2025: Patient tells me she continues to improve. Today she tells me she is 50% back to her normal breathing, she does have some rest shortness of breath that is about the same as yesterday and says that this is 40% back to her baseline. Her cough is decreased at 50% back to its baseline. she is on room air with saturations 98%. She is afebrile. White blood cell count 9.3. Creatinine 0.73. She has no wheezing. Plan: I will change patient's Solu-Medrol 60 q.6 to prednisone 40 q.day. I will continue her DuoNebs Q 6 H. Since this provides maximal beta agonist and muscarinic antagonists I will discontinue breztri. patient has received 3 days of levofloxacin for tracheobronchitis. Will discontinue levofloxacin and place her on azithromycin 500 mg p.o. q.day today and tomorrow For total of 5 days of atypical coverage. Goal saturation 90-94% and currently the patient is on room air. Out of bed to chair. Patient to walk in the halls as tolerated. I will send an alpha 1 anti trypsin genotype and level. Discussed with Leta Benson, will follow with you. (2) Pulmonary Mycobacterium avium complex (MAC) infection: Code(s): A31.0 - Pulmonary mycobacterial infection Status: Acute Assessment and Plan: Regarding her pulmonary SOPHY, she follows with [facility] infectious Disease and she tells me she had an appointment on 01/18/2025. At that time she had a negative sputum and her daily azithromycin 500, rifabutin 300 q.day and ethambutol 1800 q.day were decreased to 3 times a week. She had sputum sent to [facility] on 02/22/2025 and 02/23/2025. Plan: Continue azithromycin 500 Friday, rifabutin 300 Friday and ethambutol [address] scan without tree-in-bud infiltrates, cavities, nodules or masses. Suspect this current clinical deterioration is not progression of her SOPHY. History of Present Illness History of Present Illness Consult date: 02/28/25 Chief complaint: COPD Narrative: 02/28/2025: This is a new pulmonary consult for COPD exacerbation with a history of pulmonary SOPHY. patient is followed in the Pulmonary Clinic in last seen on 08/09/2024: at that time she described moderate coughing, no sputum production, significant chest tightness improved with rescue albuterol cooks in the microwave, does not have much energy cat score 09/06/2039. Was working 4 hours shifts at [employer] for 20 hours a week. Maintained on breztri, rescue albuterol, p.r.n. guaifenesin. prescribed no oxygen at rest, no oxygen with activity, 2 L at night. She has severe obstructive ventilatory impairment by recent PFTs 06/21/2024, FEV1 1.29 L, 44%; FEV1/FVC ratio 43%; +28% increase in FEV1 with bronchodilator, Air trapping, moderately decreased DLCO that corrected for alveolar volume. This is essentially unchanged compared to 06/06/2023. Plan was to continue breztri, prescribed Ohtuvayre. today patient tells me this medicine cost 600 dollars a month even with cost reduction. Regarding her pulmonary SOPHY she follows with [facility] infectious Disease and she tells me she had an appointment on 01/18/2025. At that time she had a negative sputum and her daily azithromycin 500, rifabutin and 300 q.day and ethambutol 1800 q.day were decreased to 3 times a week. She had sputum sent to [facility] on 02/22/2025 and 02/23/2025. At baseline patient had improved and 3-4 weeks ago started a walking program and was walking 1 mi over 40 minutes with a heart rate of 100. Her room air saturations were 97%. For the last 2 months she had no cough and no phlegm production which was better for her. On 02/21/2025 the patient developed fatigue. On 02/22/2025 the patient developed increased cough, rest shortness of breath, dyspnea on exertion and increased phlegm production. These symptoms progressed over the next 3 days and she presented to the emergency room on 02/26/2025. Her blood pressure was 173/84, heart rate 120, room air saturations 99%, temperature 97.7?. She had scattered wheezes. White blood cell count 4.5, creatinine 0.77, BNP 203, COVID influenza and RSV RT PCR negative. Room air blood gas 7.41//74. CT scan of the chest showed minimal apical scarring, no bullous emphysema, no tree-in-bud infiltrates, no cavities, no masses or nodules. Patient was started on Solu- Medrol, bronchodilators, Levaquin and her azithromycin, ethambutol rifabutin worst continued 3 times a day. 02/27/2025: Patient was feeling better. Room air saturations 96-99%. White blood cell count 2.8, creatinine 0.66. 02/28/2025: Patient tells me she continues to improve. Today she tells me she is 50% back to her normal breathing, she does have some rest shortness of breath that is about the same as yesterday and says that this is 40% back to her baseline. Her cough is decreased at 50% back to its baseline. she is on room air with saturations 98%. She is afebrile. White blood cell count 9.3. Creatinine 0.73. She has no wheezing. DATA 02/26/25: CT diagnostic chest wo con Ordering provider: Gael Dash MD History: 64 years Female with . Dyspnea, Tachycardia . Comparison: November 03, 2023 Technique: CT chest without IV contrast.Radiation reduction technique utilized. The dose-length product was 2 0.73 mGy-cm. FINDINGS: VISUALIZED THORACIC INLET: Normal. MEDIASTINUM: Aorta/coronary arteries: Mild atheromatous disease. Heart/other: The heart is not enlarged. Lymph nodes: No mediastinal or hilar adenopathy. Small mediastinal lymph nodes are noted. LUNGS: Focal density in the middle lobe which is most likely fibrotic is again demonstrated No pulmonary nodules or masses. No infiltrates or effusions. No pneumothorax. VISUALIZED UPPER ABDOMEN: Status post cholecystectomy. Small sliding hiatus hernia. Otherwise, the visualized upper abdomen is normal. MUSCULOSKELETAL: Soft tissues: The superficial soft tissues are normal. Bones: Age appropriate degenerative changes of the spine. IMPRESSION: 1. No acute cardiopulmonary pathology. 2. Small sliding hiatus hernia. 06/21/2024 after bronchodilator 06/06/2023 06/06/23after BD FVC 3.01 L, 78% 3.43 L, 89%, +14% 3.03 L, 78% 3.23, 84%, +7 FEV1 1.29 L, 44% 1.66 L, 56%, +28% 1.22 L, 41% 1.61 L, 54%, +32 FEV1/FVC 43% 48% 40% 50% TTF52-39% TLC 7.06 L, 116% 6.97 L, 115% RV 4.05 L, 168% 3.94 L, 165% FRC 4.91, 140% RV/TLC 57% 57% DLCO 13.9, 58% 13.2, 55% DLCO/VA 3.23, 80% 3.89, 96% 10/21/[address] : compared to 07/14/2023;?Interval resolution of the previously described centrilobular nodules of the left lower lobe, consistent with infection/inflammation. 2. New airspace opacities of the right middle lobe, consistent with pneumonia. *? October 21, 2023 wbc? 8.0? with differential 64% neutrophils, 15% lymphocytes, 8.6% monocyte, 11.3% eosinophils with 915 total eosinophils; not sure if this is significant; hemoglobin 13.2, hematocrit 38.8%, platelets 450 K,? sodium 140, potassium 4.5, chloride 102, CO2 26, BUN 14, creatinine 0.9, glucose 93, cholesterol 158, LDL 85, HDL 54, TSH 1.26 Review of Systems 2 Constitutional: Constitutional: Reports no additional constitutional complaints Eyes: Eyes: Reports no additional eye complaints ENT: Reports system reviewed and no additional complaints, except as documented Cardiovascular: Cardiovascular: Reports no additional cardiovascular complaints Respiratory: Respiratory: Reports no additional respiratory complaints Gastrointestinal: Gastrointestinal: Reports no additional gastrointestinal complaints Musculoskeletal: Musculoskeletal: Reports no additional musculoskeletal complaints Neurologic: Reports system reviewed and no additional complaints, except as documented Psychiatric: Psychiatric: Reports no additional psychiatric complaints Endocrine: Endocrine: Reports no additional endocrine complaints Hematologic/Lymphatic: Hematologic/Lymphatic: Reports no additional hematologic/lymphatic complaints Allergic/Immunologic: Allergic/Immunologic: Reports no additional allergic/immunologic complaints PMFSH Past Medical History Medical History Hypertension Chronic obstructive pulmonary disease Mycobacterium avium complex Mixed hyperlipidemia Surgical History Surgical History History of cholecystectomy Family History Family History Father Hypertension Family history of elevated blood lipids Mother Cerebrovascular accident Family history of diabetes mellitus in first degree relative Family history of coronary artery disease Acute myocardial infarction Sibling Family history of pancreatic cancer Sibling Heart disease Social History Social History Social History: Surrogate medical decision maker: Estephania Oconnor, sister. Code status: Full code. Smoking packs per day: 3 Smoking cigarettes per day: 60.0 Years smoked: 15 Smoking pack-years: 45.00 Smoking status: Former smoker Tobacco type: cigarettes Second hand tobacco smoke exposure: No Smoking end date: 08/18/98 Alcohol intake: never Substance use: never Substance use type: does not use Do You Feel Safe in your Home?: Yes Lack of Transportation: No Lack of Food: Never True Current Housing: I Have Housing Concerned About Future Housing: No Difficulty Paying Gas/Electric Bills: No Difficulty Paying for Meds: YES Currently Unemployed: No Education: Trade/Vocational Certificate Difficulty w/ Childcare or Family Care: No Living arrangements: alone Occupation/Education: retired 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 Spiritual care concerns: No Meds Home Medications and Allergies Home Medications ?Medication ?Instructions ?Recorded ?Confirmed ?Type albuterol sulfate 2.5 mg/3 mL 2.5 mg (3 mL) inhalation Q4-6H PRN 10/16/23 02/26/25 Rx (0.083 %) solution for nebulization shortness of breath or wheezing #180 mL guaifenesin 600 mg tablet, 1,200 mg (2 x 600 mg) PO Q12HR #60 10/28/23 02/26/25 Rx extended release 12 hr (Mucus tabs Relief ER) albuterol sulfate 90 mcg/actuation 1 inh inhalation Q4H PRN shortness 11/14/23 02/26/25 Rx aerosol inhaler (ProAir HFA) of breath or wheezing #6.7 grams azithromycin 500 mg tablet 500 mg PO .COMPLEX 08/09/24 02/26/25 History ethambutol 400 mg tablet 1,800 mg PO .COMPLEX atypical 08/09/24 02/26/25 History mycobacterial disease rifabutin 150 mg capsule 300 mg PO DAILY atypical 08/09/24 02/26/25 History mycobacterial infection sertraline 100 mg tablet 100 mg PO DAILY #90 tabs 12/08/24 02/26/25 Rx metoprolol succinate 50 mg 50 mg PO HS #30 tabs 02/02/25 02/26/25 Rx tablet,extended release 24 hr budesonide 160 mcg-glycopyr 9 See Rx Instructions .Route 02/21/25 02/26/25 Rx mcg-formot 4.8 mcg/actuation HFA .COMPLEX #11 grams inhaler (PingSomezSciodermi Bazingaphere) Allergies Allergy/AdvReac Type Severity Reaction Status Date / Time Cephalosporins Allergy Unknown Unknown Verified 02/26/25 11:14 Penicillins Allergy Unknown Unknown Verified 02/26/25 11:14 Sulfa (Sulfonamide Allergy Unknown Unknown Verified 02/26/25 11:14 Antibiotics) sulfanilamide Allergy Unknown Unknown Verified 02/26/25 11:14 tetracycline Allergy Unknown Unknown Verified 02/26/25 11:14 ampicillin Allergy Rash Verified 02/26/25 11:14 Vital Signs Vital Signs - 24 hr 02/27/25 12:00 02/27/25 13:55 02/27/25 14:00 Temperature 37.0 C Pulse Rate 86 78 98 Respiratory Rate 20 12 Blood Pressure 141/67 H Pulse Oximetry 95 Oxygen Delivery Fraction of Inspired Oxygen 02/27/25 14:05 02/27/25 20:00 02/27/25 20:02 Temperature Pulse Rate 79 90 88 Respiratory Rate 20 20 Blood Pressure Pulse Oximetry Oxygen Delivery Fraction of Inspired Oxygen 02/27/25 20:03 02/27/25 20:32 02/27/25 20:49 Temperature 36.3 C L Pulse Rate 90 100 100 Respiratory Rate 16 Blood Pressure 163/74 H Pulse Oximetry 97 97 Oxygen Delivery Room Air Fraction of Inspired Oxygen 21 02/28/25 00:00 02/28/25 04:00 02/28/25 05:44 Temperature 36.1 C L Pulse Rate 100 87 77 Respiratory Rate 20 Blood Pressure 170/81 H Pulse Oximetry 99 Oxygen Delivery Fraction of Inspired Oxygen 02/28/25 07:59 02/28/25 07:59 07/14/25 08:04 Temperature Pulse Rate 98 95 Respiratory Rate 20 20 Blood Pressure Pulse Oximetry 97 Oxygen Delivery Room Air Fraction of Inspired Oxygen 21 Exam 2 Const: General: cooperative, healthy appearing and comfortable O rientation/consciousness: oriented to person, oriented to place and oriented to time HENMT: Head: normal to inspection Ears: hearing grossly normal bilaterally Eyes: General: appearance normal, both eyes and all related structures Neck: Neck: normal visual inspection Chest: Chest palpation & inspection: normal inspection of the chest Resp: Effort & Inspection: normal respiratory effort and able to speak in complete sentences Auscultation: no crackles, no rales, no rhonchi, no wheezes and lung sounds not diminished Cardio: Jugular venous distension: no JVD GI: Inspection: normal to inspection GI Palp: No abdominal tenderness Skin: General skin exam: normal color Neuro: General: oriented to person, oriented to place and oriented to time Extrem: General: normal to inspection Psych: Appearance: grossly normal Results Laboratory Findings 02/28/25 08:08 02/28/25 08:08 ABG, PT/INR, D-dimer: ABG ABG pH 7.405 (7.350-7.450) 02/26/25 11:40 ABG pCO2 31.3 mmHg (35.0-45.0) L 02/26/25 11:40 ABG pO2 73.9 mmHg (80.0-100.0) L 02/26/25 11:40 ABG O2 Saturation 95.1 % (95.0-100.0) 02/26/25 11:40 PT/INR, D-dimer PT 13.2 Seconds (11.1-14.7) 02/26/25 11:29 INR 1.0 02/26/25 11:29 D-Dimer 0.47 ug/mL (<0.48) 02/26/25 11:29 Abnormal lab findings: Abnormal Labs 02/26/25 02/26/25 02/26/25 11:29 11:36 11:40 WBC RBC Hgb Hct Immature Gran % (Auto) Neut % (Auto) 79.5 H Lymph % (Auto) 7.6 L [place] % (Auto) 11.2 H Baso % (Auto) Lymph # (Auto) 0.34 L ABG pCO2 31.3 L ABG pO2 73.9 L ABG HCO3 19.2 L Chloride Carbon Dioxide 20 L Creatinine Glucose AST NT-Pro-B Natriuret Pep 203 H Urine Appearance Cloudy H Urine Protein 1+ H Urine Ketones Trace H Leukocyte Esterase Rfl 2+ H Urine WBC 11-20 H 02/27/25 02/28/25 04:57 08:08 WBC 2.8 L RBC 3.88 L 4.05 L Hgb 11.6 L Hct 35.6 L 36.9 L Immature Gran % (Auto) 1.1 H Neut % (Auto) 77.6 H Lymph % (Auto) 16.0 L [place] % (Auto) Baso % (Auto) 0.0 L Lymph # (Auto) 0.45 L ABG pCO2 ABG pO2 ABG HCO3 Chloride 111 H 110 H Carbon Dioxide 19 L Creatinine 0.66 L Glucose 123 H 129 H AST 52 H NT-Pro-B Natriuret Pep Urine Appearance Urine Protein Urine Ketones Leukocyte Esterase Rfl Urine WBC Diagnostic Findings Additional studies: ITS Impressions Chest X-Ray 02/26/25 12:44 IMPRESSION: 1. No acute cardiopulmonary disease. Head CT 02/26/25 14:35 IMPRESSION: No acute intracranial findings. Slight dilatation of the lateral ventricles. Follow-up advised. Chest CT 02/26/25 14:45
[2025-02-28] MEDS: AZITHROMYCIN 500 MG TABLET PO (10:25)
[2025-02-28] MEDS: ETHAMBUTOL HCL 400 MG TABLET 1600 MG PO (10:25)
[2025-02-28] MEDS: ETHAMBUTOL HCL PO (10:25)
[2025-02-28 11:08] LABS: Procalcitonin 0.1 ng/mL
[2025-02-28] MEDS: METOPROLOL SUCCINATE EXT REL 50 MG TABCR PO (20:32)
[2025-02-28] MEDS: MELATONIN 3 MG TABLET PO (20:33)
[2025-03-01] VITALS (14 sets, daily range): BP systolic 132–160; BP diastolic 65–73; PULSE 72–100; RESP 12–20; TEMP 36.1–36.4; O2SAT 96–100
[2025-03-01] MEDS: IPRATROPIUM 0.5 MG/ALBUTEROL SULFATE 2.5 MG AMPUL.NEB 3 ML INHALATION ×2 (01:49→07:33)
[2025-03-01 04:39] LABS: Hematocrit 36.6 % (37.0-47.0); Hemoglobin 12.1 g/dL (12.0-15.0); Mean Corpuscular HGB Conc 33.1 g/dl (32-36); Mean Corpuscular Hemoglobin 29.9 pg (26-34); Mean Corpuscular Volume 90.4 fl (80-100); Platelet Count Result 289 k/mm3 (150-375); Red Blood Count 4.05 M/mm3 (4.2-5.4); White Blood Count 8.3 K/mm3 (4.5-10.0)
[2025-03-01 04:54] LABS: Alanine Aminotransferase 32 U/L (6-35); Albumin Level 3.6 g/dL (3.5-5.1); Alkaline Phosphatase 50 U/L (38-126); Anion Gap 6 mmol/L (4-12); Aspartate Amino Transferase 43 U/L (14-36); Bilirubin,Total 0.4 mg/dL (0.2-1.3); Blood Urea Nitrogen 13 mg/dL (7-17); Calcium 8.8 mg/dL (8.4-10.2); Carbon Dioxide 26 mmol/L (22-30); Chloride 106 mmol/L (98-107); Estimated CRCL calculation 70 ml/min; Estimated Glomerular Filt Rate > 60; Glucose 95 mg/dL (65-110); Potassium 3.3 mmol/L (3.4-5.0); Sodium 138 mmol/L (137-145); Total Protein 6.5 g/dL (6.3-8.2)
--- NOTE | 2025-03-01 09:29 | P.PNPL_ITS ---
Progress Note: A&P Assessment and Plan (1) COPD exacerbation: Code(s): J44.1 - Chronic obstructive pulmonary disease with (acute) exacerbation Status: Chronic Assessment and Plan: patient is followed in the Pulmonary Clinic in last seen on 08/09/2024: at that time she described moderate coughing, no sputum production, significant chest tightness improved with rescue albuterol cooks in the microwave, does not have much energy cat score 09/06/2039. Was working 4 hours shifts at [employer] for 20 hours a week. Maintained on breztri, rescue albuterol, p.r.n. guaifenesin. prescribed no oxygen at rest, no oxygen with activity, 2 L at night. She has severe obstructive ventilatory impairment by recent PFTs 06/21/2024, FEV1 1.29 L, 44%; FEV1/FVC ratio 43%; +28% increase in FEV1 with bronchodilator, Air trapping, moderately decreased DLCO that corrected for alveolar volume. This is essentially unchanged compared to 06/06/2023. Plan was to continue breztri, prescribed Ohtuvayre. today patient tells me this medicine cost 600 dollars a month even with cost reduction. At baseline patient had improved and 3-4 weeks ago started a walking program and was walking 1 mi over 40 minutes with a heart rate of 100. Her room air saturations were 97%. For the last 2 months she had no cough and no phlegm production which was better for her. On 02/21/2025 the patient developed fatigue. On 02/22/2025 the patient developed increased cough, rest shortness of breath, dyspnea on exertion and increased phlegm production. These symptoms progressed over the next 3 days and she presented to the emergency room on 02/26/2025. Her blood pressure was 173/84, heart rate 120, room air saturations 99%, temperature 97.7?. She had scattered wheezes. White blood cell count 4.5, creatinine 0.77, BNP 203, COVID influenza and RSV RT PCR negative. Room air blood gas 7.41/31/74. CT scan of the chest showed minimal apical scarring, no bullous emphysema, no tree-in-bud infiltrates, no cavities, no masses or nodules. Patient was started on Solu- Medrol, bronchodilators, Levaquin and her azithromycin, ethambutol rifabutin worst continued 3 times a day. 02/27/2025: Patient was feeling better. Room air saturations 96-99%. White blood cell count 2.8, creatinine 0.66. 02/28/2025: Patient tells me she continues to improve. Today she tells me she is 50% back to her normal breathing, she does have some rest shortness of breath that is about the same as yesterday and says that this is 40% back to her baseline. Her cough is decreased at 50% back to its baseline. she is on room air with saturations 98%. She is afebrile. White blood cell count 9.3. Creatinine 0.73. She has no wheezing. Plan: I will change patient's Solu-Medrol 60 q.6 to prednisone 40 q.day. I will continue her DuoNebs Q 6 H. Since this provides maximal beta agonist and muscarinic antagonists I will discontinue breztri. patient has received 3 days of levofloxacin for tracheobronchitis. Will discontinue levofloxacin and place her on azithromycin 500 mg p.o. q.day today and tomorrow For total of 5 days of atypical coverage. Goal saturation 90-94% and currently the patient is on room air. Out of bed to chair. Patient to walk in the halls as tolerated. I will send an alpha 1 anti trypsin genotype and level. 03/01/25: Patient tells me she is worse than yesterday. Today she tells me she has 40% back to her normal. She has worsening cough, worsening chest tightness and worsening shortness of breath when walking around the room compared to yesterday. She feels the DuoNebs make her breathing worse. She is afebrile. Room air saturations 98%. White blood cell count 8.3, creatinine 0.79. Her weight today is 79.8. Plan: I will discontinue DuoNebs and place the patient on her home breztri as she says that breztri works better for her. I will continue prednisone 40 mg p.o. q.day, day 4 of steroids. She received 3 days of levofloxacin and currently is on azithromycin 500 p.o. q.day X 1, day 4 treatment for bronchitis. Goal saturation 90-94%. Discussed with Leta Benson, will follow with you. 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 At that time she had a negative sputum and her daily azithromycin 500, rifabutin 300 q.day and ethambutol 1800 q.day were decreased to 3 times a week. She had sputum sent to [facility] for [facility] on 02/22/2025 and 02/23/2025. 03/01/25: Plan: Continue azithromycin 500 Friday, rifabutin 300 Friday and ethambutol [address] scan without tree-in-bud infiltrates, cavities, nodules or masses. Suspect this current clinical deterioration is not progression of her SOPHY. Subjective Date/time seen: 03/01/25 09:29 Interval history: 02/28/2025: This is a new pulmonary consult for COPD exacerbation with a history of pulmonary SOPHY. patient is followed in the Pulmonary Clinic in last seen on 08/09/2024: at that time she described moderate coughing, no sputum production, significant chest tightness improved with rescue albuterol cooks in the microwave, does not have much energy cat score 09/06/2039. Was working 4 hours shifts at [employer] for 20 hours a week. Maintained on breztri, rescue albuterol, p.r.n. guaifenesin. prescribed no oxygen at rest, no oxygen with activity, 2 L at night. She has severe obstructive ventilatory impairment by recent PFTs 06/21/2024, FEV1 1.29 L, 44%; FEV1/FVC ratio 43%; +28% increase in FEV1 with bronchodilator, Air trapping, moderately decreased DLCO that corrected for alveolar volume. This is essentially unchanged compared to 06/06/2023. Plan was to continue breztri, prescribed Ohtuvayre. today patient tells me this medicine cost 600 dollars a month even with cost reduction. Regarding her pulmonary SOPHY she follows with [facility] infectious Disease and she tells me she had an appointment on 01/18/2025. At that time she had a negative sputum and her daily azithromycin 500, rifabutin and 300 q.day and ethambutol 1800 q.day were decreased to 3 times a week. She had sputum sent to [facility] for [facility] on 02/22/2025 and 02/23/2025. At baseline patient had improved and 3-4 weeks ago started a walking program and was walking 1 mi over 40 minutes with a heart rate of 100. Her room air saturations were 97%. For the last 2 months she had no cough and no phlegm production which was better for her. On 02/21/2025 the patient developed fatigue. On 02/22/2025 the patient developed increased cough, rest shortness of breath, dyspnea on exertion and increased phlegm production. These symptoms progressed over the next 3 days and she presented to the emergency room on 02/26/2025. Her blood pressure was 173/84, heart rate 120, room air saturations 99%, temperature 97.7?. She had scattered wheezes. White blood cell count 4.5, creatinine 0.77, BNP 203, COVID influenza and RSV RT PCR negative. Room air blood gas 7.41/31/74. CT scan of the chest showed minimal apical scarring, no bullous emphysema, no tree-in-bud infiltrates, no cavities, no masses or nodules. Patient was started on Solu- Medrol, bronchodilators, Levaquin and her azithromycin, ethambutol rifabutin worst continued 3 times a day. 02/27/2025: Patient was feeling better. Room air saturations 96-99%. White blood cell count 2.8, creatinine 0.66. 02/28/2025: Patient tells me she continues to improve. Today she tells me she is 50% back to her normal breathing, she does have some rest shortness of breath that is about the same as yesterday and says that this is 40% back to her baseline. Her cough is decreased at 50% back to its baseline. she is on room air with saturations 98%. She is afebrile. White blood cell count 9.3. Creatinine 0.73. She has no wheezing. 03/01/25: Patient tells me she is worse than yesterday. Today she tells me she has 40% back to her normal. She has worsening cough, worsening chest tightness and worsening shortness of breath when walking around the room compared to yesterday. She feels the DuoNebs make her breathing worse. She is afebrile. Room air saturations 98%. White blood cell count 8.3, creatinine 0.79. Her weight today is 79.8. DATA 02/26/25: CT diagnostic chest wo con Ordering provider: Gael Dash MD History: 64 years Female with . Dyspnea, Tachycardia . Comparison: November 03, 2023 Technique: CT chest without IV contrast.Radiation reduction technique utilized. The dose-length product was 2 0.73 mGy-cm. FINDINGS: VISUALIZED THORACIC INLET: Normal. MEDIASTINUM: Aorta/coronary arteries: Mild atheromatous disease. Heart/other: The heart is not enlarged. Lymph nodes: No mediastinal or hilar adenopathy. Small mediastinal lymph nodes are noted. LUNGS: Focal density in the middle lobe which is most likely fibrotic is again demonstrated No pulmonary nodules or masses. No infiltrates or effusions. No pneumothorax. VISUALIZED UPPER ABDOMEN: Status post cholecystectomy. Small sliding hiatus hernia. Otherwise, the visualized upper abdomen is normal. MUSCULOSKELETAL: Soft tissues: The superficial soft tissues are normal. Bones: Age appropriate degenerative changes of the spine. IMPRESSION: 1. No acute cardiopulmonary pathology. 2. Small sliding hiatus hernia. 06/21/2024 after bronchodilator 06/06/2023 06/06/23after BD FVC 3.01 L, 78% 3.43 L, 89%, +14% 3.03 L, 78% 3.23, 84%, +7 FEV1 1.29 L, 44% 1.66 L, 56%, +28% 1.22 L, 41% 1.61 L, 54%, +32 FEV1/FVC 43% 48% 40% 50% AVP97-49% TLC 7.06 L, 116% 6.97 L, 115% RV 4.05 L, 168% 3.94 L, 165% FRC 4.91, 140% RV/TLC 57% 57% DLCO 13.9, 58% 13.2, 55% DLCO/VA 3.23, 80% 3.89, 96% 10/21/[address] : compared to 07/14/2023;?Interval resolution of the previously described centrilobular nodules of the left lower lobe, consistent with infection/inflammation. 2. New airspace opacities of the right middle lobe, consistent with pneumonia. *? October 21, 2023 wbc? 8.0? with differential 64% neutrophils, 15% lymphocytes, 8.6% monocyte, 11.3% eosinophils with 915 total eosinophils; not sure if this is significant; hemoglobin 13.2, hematocrit 38.8%, platelets 450 K,? sodium 140, potassium 4.5, chloride 102, CO2 26, BUN 14, creatinine 0.9, glucose 93, cholesterol 158, LDL 85, HDL 54, TSH 1.26 Review of Systems Constitutional: Constitutional: Reports no additional constitutional complaints Eyes: Eyes: Reports no additional eye complaints ENT: Reports system reviewed and no additional complaints, except as documented Cardiovascular: Cardiovascular: Reports no additional cardiovascular complaints Respiratory: Respiratory: Reports no additional respiratory complaints Gastrointestinal: Gastrointestinal: Reports no additional gastrointestinal complaints Musculoskeletal: Musculoskeletal: Reports no additional musculoskeletal complaints Neurologic: Reports system reviewed and no additional complaints, except as documented Psychiatric: Psychiatric: Reports no additional psychiatric complaints Endocrine: Endocrine: Reports no additional endocrine complaints Hematologic/Lymphatic: Hematologic/Lymphatic: Reports no additional hematologic/lymphatic complaints Allergic/Immunologic: Allergic/Immunologic: Reports no additional allergic/immunologic complaints Exam Const: General: cooperative, healthy appearing and comfortable Orientation/consciousness: oriented to person, oriented to place and oriented to time HENMT: Head: normal to inspection Ears: hearing grossly normal bilaterally Eyes: General: appearance normal, both eyes and all related structures Neck: Neck: normal visual inspection Chest: Chest palpation & inspection: normal inspection of the chest Resp: Effort & Inspection: normal respiratory effort and able to speak in complete sentences Auscultation: no crackles, no rales, no rhonchi, no wheezes and lung sounds not diminished Other: No wheezes but deep respirations cause her to cough. Cardio: Jugular venous distension: no JVD GI: Inspection: normal to inspection Skin: General skin exam: normal color Neuro: General: oriented to person, oriented to place and oriented to time Extrem: General: normal to inspection Psych: Appearance: grossly normal Objective Data Vital Signs Vital Signs: Vital Signs - 24 hr 02/28/25 12:00 02/28/25 14:00 02/28/25 14:11 Temperature 36.2 C L Pulse Rate 75 95 88 Respiratory Rate 16 20 Blood Pressure 146/71 H Pulse Oximetry 95 Oxygen Delivery Fraction of Inspired Oxygen 02/28/25 16:00 02/28/25 20:00 02/28/25 20:00 Temperature Pulse Rate 96 78 Respiratory Rate Blood Pressure Pulse Oximetry Oxygen Delivery Room Air Fraction of Inspired Oxygen 02/28/25 20:12 02/28/25 20:22 02/28/25 20:32 Temperature Pulse Rate 90 90 104 H Respiratory Rate 16 16 Blood Pressure Pulse Oximetry Oxygen Delivery Fraction of Inspired Oxygen 02/28/25 20:38 02/28/25 20:38 03/01/25 00:00 Temperature 36.5 C Pulse Rate 91 72 Respiratory Rate 18 Blood Pressure 155/69 H Pulse Oximetry 96 97 Oxygen Delivery Room Air Fraction of Inspired Oxygen 03/01/25 01:49 03/01/25 02:04 03/01/25 04:00 Temperature Pulse Rate 90 90 73 Respiratory Rate 16 16 Blood Pressure Pulse Oximetry Oxygen Delivery Fraction of Inspired Oxygen 03/01/25 05:03 03/01/25 07:33 03/01/25 07:33 Temperature 36.1 C L Pulse Rate 78 91 Respiratory Rate 12 20 Blood Pressure 160/73 H Pulse Oximetry 100 97 Oxygen Delivery Room Air Fraction of Inspired Oxygen 03/01/25 07:45 Temperature Pulse Rate 80 Respiratory Rate 16 Blood Pressure Pulse Oximetry Oxygen Delivery Fraction of Inspired Oxygen Intake/Output Intake/Output: Intake & Output 02/26/25 02/27/25 02/28/25 03/01/25 23:59 23:59 23:59 23:59 Intake Total 3290 3070 1780 200 Balance 3290 3070 1780 200 Meds/Results Medications: Active Medications Generic Name Dose Route Start Last Admin Trade Name Freq PRN Reason Stop Dose Admin Acetaminophen 650 mg 02/26/25 17:42 02/28/25 20:36 Acetaminophen 325 Mg Tablet PO 650 mg Q4H PRN Administration Mild Pain (1-3)/ FEVER Acetaminophen/Butalbital/Caffeine 1 tab 02/26/25 21:49 Acetaminophen/Butalbital/Caffeine 325-50-40 Mg Tablet (Fioricet) PO Q4H PRN Headache Azithromycin 500 mg 02/28/25 09:00 02/28/25 10:25 Azithromycin 500 Mg Tablet PO 500 mg DAILY FLORECITA Administration Enoxaparin Sodium 40 mg 02/27/25 09:00 02/28/25 09:30 Enoxaparin 40 Mg/0.4 Ml Syringe SUB-Q 40 mg DAILY FLORECITA Administration Ethambutol HCl 1,600 mg 02/28/25 09:00 02/28/25 10:25 Ethambutol Hcl 400 Mg Tablet PO 1,600 mg MoWeFr FLORECITA Administration Ethambutol HCl 200 mg 02/28/25 09:00 02/28/25 10:25 Ethambutol Hcl 200 Mg Tablet PO 200 mg MoWeFr FLORECITA Administration Guaifenesin 1,200 mg 02/26/25 21:00 02/28/25 20:32 Guaifenesin 12 Hr 600 Mg Tabcr PO 1,200 mg Q12HR FLORECITA Administration Guaifenesin/Codeine Phosphate 10 ml 02/27/25 16:18 02/27/25 16:52 Guaifenesin/Codeine (*Crx) 200/20 Mg 10 Ml Syrup PO 10 ml Q4H PRN Administration Cough Melatonin 3 mg 02/28/25 21:00 02/28/25 20:33 Melatonin 3 Mg Tablet PO 3 mg HS [facility] Administration Metoprolol Succinate 50 mg 02/26/25 21:00 02/28/25 20:32 Metoprolol Succinate Ext Rel 50 Mg Tabcr PO 50 mg HS [facility] Administration Home Med 300 mg 02/28/25 09:00 02/28/25 09:31 Rifabutin 150 Mg PO 03/30/25 08:59 300 mg Capsule MoWeFr@0900 [facility] Administration Home Med Breyannitri 2 puff(s) 02/27/25 10:30 02/28/25 07:59 160 Mcg/9 Mcg/4.8 INHALATION 03/29/25 10:29 2 puff(s) Mcg Q12HRT FLORECITA Administration Prednisone 40 mg 02/28/25 09:20 02/28/25 10:25 Prednisone 20 Mg Tablet PO 40 mg DAILY@0800 [facility] Administration Sertraline HCl 100 mg 02/27/25 09:00 02/28/25 09:29 Sertraline Hcl 50 Mg Tablet PO 100 mg DAILY [facility] Administration Radiology Results: ITS Impressions Chest X-Ray 02/26/25 12:44 IMPRESSION: 1. No acute cardiopulmonary disease. Head CT 02/26/25 14:35 IMPRESSION: No acute intracranial findings. Slight dilatation of the lateral ventricles. Follow-up advised. Chest CT 02/26/25 14:45 IMPRESSION: 1. No acute cardiopulmonary pathology. 2. Small sliding hiatus hernia. Labs Labs: Laboratory Results - last 24 hr 02/28/25 03/01/25 08:03 04:19 WBC 8.3 RBC 4.05 L Hgb 12.1 Hct 36.6 L MCV 90.4 MCH 29.9 MCHC 33.1 RDW 13.1 Plt Count 289 MPV 9.1 Sodium 138 Potassium 3.3 L Chloride 106 Carbon Dioxide 26 Anion Gap 6 BUN 13 Creatinine 0.79 Estim Creat Clear Calc 70 Estimated GFR > 60 Glucose 95 Calcium 8.8 Total Bilirubin 0.4 AST 43 H ALT 32 Alkaline Phosphatase 50 Total Protein 6.5 Albumin 3.6 Procalcitonin 0.1
[2025-03-01] MEDS: AZITHROMYCIN 500 MG TABLET PO (09:33)
[2025-03-01] MEDS: SERTRALINE HCL 50 MG TABLET 100 MG PO (09:33)
[2025-03-01] MEDS: guaiFENesin 12 HR 600 MG TABCR 1200 MG PO ×2 (09:34→21:19)
[2025-03-01] MEDS: ACETAMINOPHEN 325 MG TABLET 650 MG PO ×2 (09:34→21:19)
[2025-03-01] MEDS: ENOXAPARIN 40 MG/0.4 ML SYRINGE SUB-Q (09:35)
[2025-03-01] MEDS: PHENOL/SOD PHENO SPRAY CHERRY (*BKC) 1 SPRAY MUCOUS MEM (12:45)
--- NOTE | 2025-03-01 12:53 | P.PNIM_ITS ---
Progress Note: A&P Assessment and Plan (1) Acute respiratory failure with hypoxia: Code(s): J96.01 - Acute respiratory failure with hypoxia Status: Acute Assessment and Plan: Secondary to COPD exacerbation and MAC - SpO2: stable on room air - Oxygen supplementation: 1L NC overnight - Suspected cause: COPD exacerbation - D dimer negative - Chest CT showed no acute cardiopulmonary process Remains on room air during the day. (2) COPD exacerbation: Code(s): J44.1 - Chronic obstructive pulmonary disease with (acute) exacerbation Status: Chronic Assessment and Plan: Chest CT showed no acute cardiopulmonary process Likely acute on chronic exacerbation of COPD. Antibiotic: Levaquin started on 02/27, discontinues per pulmonology. Remains on azithromycin 500 mg daily Rubaztri resumed as patient thought duonebs were worsening symptoms and Albuterol q2H prn Continue prednisone 40 mg daily Monitor vital signs, I&Os, neuro status and patient is a fall risk Monitor serum electrolytes, cultures and CBC Monitor Oxygen saturation, Oxygen via NC; wean oxygen as tolerated, keep SpO2 greater than 88% Consult Pulmonology as she is a [facility] pt of theirs (3) UTI (urinary tract infection): Code(s): N39.0 - Urinary tract infection, site not specified Status: Acute Assessment and Plan: - UA: cloudy appearance with 1+ protein, trace ketones, 2+ leukocytes, 11-20 WBC appears to be contaminated with moderate amount of epithelials and rare bacteria, therefore no reflex to culture was initiated. separate urine culture ordered - UC obtained on 02/27: pending - No previous micro to be reviewed - started on levaquin on 02/27, however patient has no UTI symptoms. DC levaquin. Had slight burning sensation intermittently today with urination. No other UTI like symptoms noted. Culture is pending. (4) Pulmonary Mycobacterium avium complex (MAC) infection: Code(s): A31.0 - Pulmonary mycobacterial infection Status: Acute Assessment and Plan: Continue Rifabutin and Ethambutol for MAC MWF Trend VS w/oxygen sats (5) Hypertension: Code(s): I10 - Essential (primary) hypertension Status: Chronic Assessment and Plan: Continue metoprolol 50 mg daily Continue to monitor (6) Depression: Code(s): F32.A - Depression, unspecified Status: Chronic Assessment and Plan: Continue home Zoloft (7) Headache: Code(s): R51.9 - Headache, unspecified Status: Chronic Assessment and Plan: Fioricet Time Spent With Patient Time with patient: 25 - 35 minutes Subjective Date/time seen: 03/01/25 12:53 Interval history: 64-year-old female with past medical history of COPD, hypertension, pulmonary MAC presents the hospital with increased shortness of breath. Patient is pleasant sitting up comfortable in her chair with family at bedside. She states that she is feeling a bit worse today with increased cough and feeling as though her chest is tight/unable to take deep breaths. She relates this to the DuoNebs which have been discontinued by pulmonology and her breztri has been resumed. She does know intermittent burning with urination but has no other urinary tract infection like symptoms. She has no other complaints denying chest pain, palpitations, nausea/vomiting, and abdominal pain. Review of Systems Review of Systems: All systems reviewed & are unremarkable except as noted in HPI and below Exam Narrative: AF HR 80 RR 16 SPO2 97 BP 160/73 General: female in no acute respiratory distress who is nontoxic appearing, sitting up in chair HEENT: Normocephalic. Atraumatic. Extraocular movement intact. Sclera clear and anicteric. No facial asymmetry. Chest: Lungs diminished to auscultation bilaterally. No crackles. Speak full sentences. Dry cough. CV: Heart was regular rate and rhythm. S1-S2. No murmurs, gallops, or rubs. Abd: Abdomen was soft. Slight tenderness to hypogastric region without guarding. Nondistended. Positive bowel sounds. No organomegaly or masses. Ext: No clubbing, cyanosis, or edema. DP pulses bilaterally. Neuro: Patient is alert. Speech is clear. Objective Data Vital Signs Vital Signs: Vital Signs - 24 hr 02/28/25 14:00 02/28/25 14:11 02/28/25 16:00 Temperature 97.2 F L Pulse Rate 95 88 96 Respiratory Rate 16 20 Blood Pressure 146/71 H Pulse Oximetry 95 Oxygen Delivery Fraction of Inspired Oxygen 02/28/25 20:00 02/28/25 20:00 02/28/25 20:12 Temperature Pulse Rate 78 90 Respiratory Rate 16 Blood Pressure Pulse Oximetry Oxygen Delivery Room Air Fraction of Inspired Oxygen 02/28/25 20:22 02/28/25 20:32 02/28/25 20:38 Temperature 97.7 F Pulse Rate 90 104 H 91 Respiratory Rate 16 18 Blood Pressure 155/69 H Pulse Oximetry 96 Oxygen Delivery Fraction of Inspired Oxygen 02/28/25 20:38 03/01/25 00:00 03/01/25 01:49 Temperature Pulse Rate 72 90 Respiratory Rate 16 Blood Pressure Pulse Oximetry 97 Oxygen Delivery Room Air Fraction of Inspired Oxygen 21 03/01/25 02:04 03/01/25 04:00 03/01/25 05:03 Temperature 97 F L Pulse Rate 90 73 78 Respiratory Rate 16 12 Blood Pressure 160/73 H Pulse Oximetry 100 Oxygen Delivery Fraction of Inspired Oxygen 03/01/25 07:33 03/01/25 07:33 03/01/25 07:45 Temperature Pulse Rate 91 80 Respiratory Rate 20 16 Blood Pressure Pulse Oximetry 97 Oxygen Delivery Room Air Fraction of Inspired Oxygen Intake/Output Intake/Output: Intake & Output 02/26/25 02/27/25 02/28/25 03/01/25 23:59 23:59 23:59 23:59 Intake Total 3290 3070 1780 436 Balance 3290 3070 1780 436 Meds/Results Medications: Active Medications Generic Name Dose Route Start Last Admin Trade Name Freq PRN Reason Stop Dose Admin Acetaminophen 650 mg 02/26/25 17:42 03/01/25 09:34 Acetaminophen 325 Mg Tablet PO 650 mg Q4H PRN Administration Mild Pain (1-3)/ FEVER Acetaminophen/Butalbital/Caffeine 1 tab 02/26/25 21:49 Acetaminophen/Butalbital/Caffeine 325-50-40 Mg Tablet (Fioricet) PO Q4H PRN Headache Azithromycin 500 mg 02/28/25 09:00 03/01/25 09:33 Azithromycin 500 Mg Tablet PO 500 mg DAILY FLORECITA Administration Enoxaparin Sodium 40 mg 02/27/25 09:00 03/01/25 09:35 Enoxaparin 40 Mg/0.4 Ml Syringe SUB-Q 40 mg DAILY FLORECITA Administration Ethambutol HCl 1,600 mg 02/28/25 09:00 02/28/25 10:25 Ethambutol Hcl 400 Mg Tablet PO 1,600 mg MoWeFr FLORECITA Administration Ethambutol HCl 200 mg 02/28/25 09:00 02/28/25 10:25 Ethambutol Hcl 200 Mg Tablet PO 200 mg MoWeFr FLORECITA Administration Guaifenesin 1,200 mg 02/26/25 21:00 03/01/25 09:34 Guaifenesin 12 Hr 600 Mg Tabcr PO 1,200 mg Q12HR FLORECITA Administration Guaifenesin/Codeine Phosphate 10 ml 02/27/25 16:18 02/27/25 16:52 Guaifenesin/Codeine (*Crx) 200/20 Mg 10 Ml Syrup PO 10 ml Q4H PRN Administration Cough Melatonin 3 mg 02/28/25 21:00 02/28/25 20:33 Melatonin 3 Mg Tablet PO 3 mg HS FLORECITA Administration Metoprolol Succinate 50 mg 02/26/25 21:00 02/28/25 20:32 Metoprolol Succinate Ext Rel 50 Mg Tabcr PO 50 mg HS FLORECITA Administration Home Med 300 mg 02/28/25 09:00 02/28/25 09:31 Rifabutin 150 Mg PO 03/30/25 08:59 300 mg Capsule MoWeFr@0900 FLORECITA Administration Home Med Breztri 2 puff(s) 02/27/25 10:30 02/28/25 07:59 160 Mcg/9 Mcg/4.8 INHALATION 03/29/25 10:29 2 puff(s) Mcg Q12HRT FLORECITA Administration Phenol 1 spray 03/01/25 11:55 03/01/25 12:45 Phenol/Sod Pheno [employer] (*Bkc) MUCOUS MEM 1 spray PRN PRN Administration Sore Throat Prednisone 40 mg 02/28/25 09:20 03/01/25 09:34 Prednisone 20 Mg Tablet PO 40 mg DAILY@0800 FLORECITA Administration Sertraline HCl 100 mg 02/27/25 09:00 03/01/25 09:33 Sertraline Hcl 50 Mg Tablet PO 100 mg DAILY FLORECITA Administration Radiology Results: ITS Impressions Chest X-Ray 02/26/25 12:44 IMPRESSION: 1. No acute cardiopulmonary disease. Head CT 02/26/25 14:35 IMPRESSION: No acute intracranial findings. Slight dilatation of the lateral ventricles. Follow-up advised. Chest CT 02/26/25 14:45 IMPRESSION: 1. No acute cardiopulmonary pathology. 2. Small sliding hiatus hernia. Labs Labs: Laboratory Results - last 24 hr 03/01/25 04:19 WBC 8.3 RBC 4.05 L Hgb 12.1 Hct 36.6 L MCV 90.4 MCH 29.9 MCHC 33.1 RDW 13.1 Plt Count 289 MPV 9.1 Sodium 138 Potassium 3.3 L Chloride 106 Carbon Dioxide 26 Anion Gap 6 BUN 13 Creatinine 0.79 Estim Creat Clear Calc 70 Estimated GFR > 60 Glucose 95 Calcium 8.8 Total Bilirubin 0.4 AST 43 H ALT 32 Alkaline Phosphatase 50 Total Protein 6.5 Albumin 3.6 Quality VTE Prophylaxis VTE prophylaxis: pharmacologic ordered
[2025-03-01] MEDS: BREZTRI 2 EACH INHALATION (19:35)
[2025-03-01] MEDS: METOPROLOL SUCCINATE EXT REL 50 MG TABCR PO (21:19)
[2025-03-01] MEDS: MELATONIN 3 MG TABLET PO (21:19)
[2025-03-02] VITALS (7 sets, daily range): BP systolic 153; BP diastolic 76; PULSE 66–115; RESP 20; TEMP 36.4; O2SAT 93–99
[2025-03-02 04:57] LABS: Hematocrit 37.3 % (37.0-47.0); Hemoglobin 12.3 g/dL (12.0-15.0); Mean Corpuscular HGB Conc 33.0 g/dl (32-36); Mean Corpuscular Hemoglobin 30.0 pg (26-34); Mean Corpuscular Volume 91.0 fl (80-100); Platelet Count Result 316 k/mm3 (150-375); Red Blood Count 4.10 M/mm3 (4.2-5.4); White Blood Count 6.5 K/mm3 (4.5-10.0)
[2025-03-02 05:14] LABS: Alanine Aminotransferase 52 U/L (6-35); Albumin Level 3.5 g/dL (3.5-5.1); Alkaline Phosphatase 55 U/L (38-126); Anion Gap 6 mmol/L (4-12); Aspartate Amino Transferase 41 U/L (14-36); Bilirubin,Total 0.3 mg/dL (0.2-1.3); Blood Urea Nitrogen 15 mg/dL (7-17); Calcium 8.6 mg/dL (8.4-10.2); Carbon Dioxide 28 mmol/L (22-30); Chloride 105 mmol/L (98-107); Estimated CRCL calculation 65 ml/min; Estimated Glomerular Filt Rate > 60; Glucose 88 mg/dL (65-110); Potassium 3.7 mmol/L (3.4-5.0); Sodium 139 mmol/L (137-145); Total Protein 6.1 g/dL (6.3-8.2)
[2025-03-02] MEDS: BREZTRI 2 EACH INHALATION (07:26)
--- NOTE | 2025-03-02 08:08 | P.PNPL_ITS ---
Progress Note: A&P Assessment and Plan (1) COPD exacerbation: Code(s): J44.1 - Chronic obstructive pulmonary disease with (acute) exacerbation Status: Chronic Assessment and Plan: patient is followed in the Pulmonary Clinic in last seen on 08/09/2024: at that time she described moderate coughing, no sputum production, significant chest tightness improved with rescue albuterol cooks in the microwave, does not have much energy cat score 09/06/2039. Was working 4 hours shifts at [employer] for 20 hours a week. Maintained on breztri, rescue albuterol, p.r.n. guaifenesin. prescribed no oxygen at rest, no oxygen with activity, 2 L at night. She has severe obstructive ventilatory impairment by recent PFTs 06/21/2024, FEV1 1.29 L, 44%; FEV1/FVC ratio 43%; +28% increase in FEV1 with bronchodilator, Air trapping, moderately decreased DLCO that corrected for alveolar volume. This is essentially unchanged compared to 06/06/2023. Plan was to continue breztri, prescribed Ohtuvayre. today patient tells me this medicine cost 600 dollars a month even with cost reduction. At baseline patient had improved and 3-4 weeks ago started a walking program and was walking 1 mi over 40 minutes with a heart rate of 100. Her room air saturations were 97%. For the last 2 months she had no cough and no phlegm production which was better for her. On 02/21/2025 the patient developed fatigue. On 02/22/2025 the patient developed increased cough, rest shortness of breath, dyspnea on exertion and increased phlegm production. These symptoms progressed over the next 3 days and she presented to the emergency room on 02/26/2025. Her blood pressure was 173/84, heart rate 120, room air saturations 99%, temperature 97.7?. She had scattered wheezes. White blood cell count 4.5, creatinine 0.77, BNP 203, COVID influenza and RSV RT PCR negative. Room air blood gas 7.41/31/74. CT scan of the chest showed minimal apical scarring, no bullous emphysema, no tree-in-bud infiltrates, no cavities, no masses or nodules. Patient was started on Solu- Medrol, bronchodilators, Levaquin and her azithromycin, ethambutol rifabutin worst continued 3 times a day. 02/27/2025: Patient was feeling better. Room air saturations 96-99%. White blood cell count 2.8, creatinine 0.66. 02/28/2025: Patient tells me she continues to improve. Today she tells me she is 50% back to her normal breathing, she does have some rest shortness of breath that is about the same as yesterday and says that this is 40% back to her baseline. Her cough is decreased at 50% back to its baseline. she is on room air with saturations 98%. She is afebrile. White blood cell count 9.3. Creatinine 0.73. She has no wheezing. Plan: I will change patient's Solu-Medrol 60 q.6 to prednisone 40 q.day. I will continue her DuoNebs Q 6 H. Since this provides maximal beta agonist and muscarinic antagonists I will discontinue breztri. patient has received 3 days of levofloxacin for tracheobronchitis. Will discontinue levofloxacin and place her on azithromycin 500 mg p.o. q.day today and tomorrow For total of 5 days of atypical coverage. Goal saturation 90-94% and currently the patient is on room air. Out of bed to chair. Patient to walk in the halls as tolerated. I will send an alpha 1 anti trypsin genotype and level. 03/01/25: Patient tells me she is worse than yesterday. Today she tells me she has 40% back to her normal. She has worsening cough, worsening chest tightness and worsening shortness of breath when walking around the room compared to yesterday. She feels the DuoNebs make her breathing worse. She is afebrile. Room air saturations 98%. White blood cell count 8.3, creatinine 0.79. Her weight today is 79.8. Plan: I will discontinue DuoNebs and place the patient on her home breztri as she says that breztri works better for her. I will continue prednisone 40 mg p.o. q.day, day 4 of steroids. She received 3 days of levofloxacin and currently is on azithromycin 500 p.o. q.day X 1, day 4 treatment for bronchitis. Goal saturation 90-94%. 03/02/25: Patient tells me she is better than yesterday. States she has 80-85% back to her normal. She has a cough without phlegm production. She has no hemoptysis. She feels the phlegm gets stuck in her chest. She had blood clots from her nose yesterday and this morning had dry blood clots from her nose that is improved from yesterday. Room air saturation 97%. Afebrile. White blood cell count 6.5, creatinine 0.86. Her weight today is 79 kilos. Patient feels like she has improved and is ready for discharge today. she will receive her 5th day of prednisone 40 this morning. Respiratory pathogen panel pending. Plan: from a pulmonary perspective patient is ready to be discharged on these pulmonary medications: Breztri At 2 puffs twice a day Rescue albuterol inhaler 2 puffs q.4 hours p.r.n. shortness of breath or wheezing. Rescue albuterol nebulizer q.4 hours p.r.n. shortness of breath or wheezing Azithromycin 500 mg p.o. Friday Ethambutol 1800 mg p.o. Friday Rifabutin 300 mg p.o. Friday Oxygen at rest and with activity per home O2 assessment which I have ordered. Oxygen 1 L at night. follow-up in the Pulmonary Clinic in 4 weeks, I gave her our business card and informed our medical appointment scheduler. Discussed with Leta Benson, will sign off, call with questions. 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 At that time she had a negative sputum and her daily azithromycin 500, rifabutin 300 q.day and ethambutol 1800 q.day were decreased to 3 times a week. She had sputum sent to [facility] on 02/22/2025 and 02/23/2025. 03/01/25: Plan: Continue azithromycin 500 Friday, rifabutin 300 Friday and ethambutol [address] scan without tree-in-bud infiltrates, cavities, nodules or masses. Suspect this current clinical deterioration is not progression of her SOPHY. 03/02/25: Patient to continue her home regimen of azithromycin 500, rifabutin 300 and ethambutol 1800 all on Friday. Subjective Date/time seen: 03/02/25 08:08 Interval history: 02/28/2025: This is a new pulmonary consult for COPD exacerbation with a history of pulmonary SOPHY. patient is followed in the Pulmonary Clinic in last seen on 08/09/2024: at that time she described moderate coughing, no sputum production, significant chest tightness improved with rescue albuterol cooks in the microwave, does not have much energy cat score 09/06/2039. Was working 4 hours shifts at [employer] for 20 hours a week. Maintained on breztri, rescue albuterol, p.r.n. guaifenesin. prescribed no oxygen at rest, no oxygen with activity, 2 L at night. She has severe obstructive ventilatory impairment by recent PFTs 06/21/2024, FEV1 1.29 L, 44%; FEV1/FVC ratio 43%; +28% increase in FEV1 with bronchodilator, Air trapping, moderately decreased DLCO that corrected for alveolar volume. This is essentially unchanged compared to 06/06/2023. Plan was to continue breztri, prescribed Ohtuvayre. today patient tells me this medicine cost 600 dollars a month even with cost reduction. Regarding her pulmonary SOPHY she follows with [facility] infectious Disease and she tells me she had an appointment on 01/18/2025. At that time she had a negative sputum and her daily azithromycin 500, rifabutin and 300 q.day and ethambutol 1800 q.day were decreased to 3 times a week. She had sputum sent to [facility] on 02/22/2025 and 02/23/2025. At baseline patient had improved and 3-4 weeks ago started a walking program and was walking 1 mi over 40 minutes with a heart rate of 100. Her room air saturations were 97%. For the last 2 months she had no cough and no phlegm production which was better for her. On 02/21/2025 the patient developed fatigue. On 02/22/2025 the patient developed increased cough, rest shortness of breath, dyspnea on exertion and increased phlegm production. These symptoms progressed over the next 3 days and she presented to the emergency room on 02/26/2025. Her blood pressure was 173/84, heart rate 120, room air saturations 99%, temperature 97.7?. She had scattered wheezes. White blood cell count 4.5, creatinine 0.77, BNP 203, COVID influenza and RSV RT PCR negative. Room air blood gas 7.41/31/74. CT scan of the chest showed minimal apical scarring, no bullous emphysema, no tree-in-bud infiltrates, no cavities, no masses or nodules. Patient was started on Solu- Medrol, bronchodilators, Levaquin and her azithromycin, ethambutol rifabutin worst continued 3 times a day. 02/27/2025: Patient was feeling better. Room air saturations 96-99%. White blood cell count 2.8, creatinine 0.66. 02/28/2025: Patient tells me she continues to improve. Today she tells me she is 50% back to her normal breathing, she does have some rest shortness of breath that is about the same as yesterday and says that this is 40% back to her baseline. Her cough is decreased at 50% back to its baseline. she is on room air with saturations 98%. She is afebrile. White blood cell count 9.3. Creatinine 0.73. She has no wheezing. 03/01/25: Patient tells me she is worse than yesterday. Today she tells me she has 40% back to her normal. She has worsening cough, worsening chest tightness and worsening shortness of breath when walking around the room compared to yesterday. She feels the DuoNebs make her breathing worse. She is afebrile. Room air saturations 98%. White blood cell count 8.3, creatinine 0.79. Her weight today is 79.8. 03/02/25: Patient tells me she is better than yesterday. States she has 80-85% back to her normal. She has a cough without phlegm production. She has no hemoptysis. She feels the phlegm gets stuck in her chest. She had blood clots from her nose yesterday and this morning had dry blood clots from her nose that is improved from yesterday. Room air saturation 97%. Afebrile. White blood cell count 6.5, creatinine 0.86. Her weight today is 79 kilos. Patient feels like she has improved and is ready for discharge today. DATA 02/26/25: CT diagnostic chest wo con Ordering provider: Gael Dash MD History: 64 years Female with . Dyspnea, Tachycardia . Comparison: November 03, 2023 Technique: CT chest without IV contrast.Radiation reduction technique utilized. The dose-length product was 2 0.73 mGy-cm. FINDINGS: VISUALIZED THORACIC INLET: Normal. MEDIASTINUM: Aorta/coronary arteries: Mild atheromatous disease. Heart/other: The heart is not enlarged. Lymph nodes: No mediastinal or hilar adenopathy. Small mediastinal lymph nodes are noted. LUNGS: Focal density in the middle lobe which is most likely fibrotic is again demonstrated No pulmonary nodules or masses. No infiltrates or effusions. No pneumothorax. VISUALIZED UPPER ABDOMEN: Status post cholecystectomy. Small sliding hiatus hernia. Otherwise, the visualized upper abdomen is normal. MUSCULOSKELETAL: Soft tissues: The superficial soft tissues are normal. Bones: Age appropriate degenerative changes of the spine. IMPRESSION: 1. No acute cardiopulmonary pathology. 2. Small sliding hiatus hernia. 06/21/2024 after bronchodilator 06/06/2023 06/06/23after BD FVC 3.01 L, 78% 3.43 L, 89%, +14% 3.03 L, 78% 3.23, 84%, +7 FEV1 1.29 L, 44% 1.66 L, 56%, +28% 1.22 L, 41% 1.61 L, 54%, +32 FEV1/FVC 43% 48% 40% 50% PLU62-61% TLC 7.06 L, 116% 6.97 L, 115% RV 4.05 L, 168% 3.94 L, 165% FRC 4.91, 140% RV/TLC 57% 57% DLCO 13.9, 58% 13.2, 55% DLCO/VA 3.23, 80% 3.89, 96% 10/21/[address] : compared to 07/14/2023;?Interval resolution of the previously described centrilobular nodules of the left lower lobe, consistent with infection/inflammation. 2. New airspace opacities of the right middle lobe, consistent with pneumonia. *? October 21, 2023 wbc? 8.0? with differential 64% neutrophils, 15% lymphocytes, 8.6% monocyte, 11.3% eosinophils with 915 total eosinophils; not sure if this is significant; hemoglobin 13.2, hematocrit 38.8%, platelets 450 K,? sodium 140, potassium 4.5, chloride 102, CO2 26, BUN 14, creatinine 0.9, glucose 93, cholesterol 158, LDL 85, HDL 54, TSH 1.26 Review of Systems Constitutional: Constitutional: Reports no additional constitutional complaints Eyes: Eyes: Reports no additional eye complaints ENT: Reports system reviewed and no additional complaints, except as docume nted Cardiovascular: Cardiovascular: Reports no additional cardiovascular complaints Respiratory: Respiratory: Reports no additional respiratory complaints Gastrointestinal: Gastrointestinal: Reports no additional gastrointestinal complaints Musculoskeletal: Musculoskeletal: Reports no additional musculoskeletal complaints Neurologic: Reports system reviewed and no additional complaints, except as documented Psychiatric: Psychiatric: Reports no additional psychiatric complaints Endocrine: Endocrine: Reports no additional endocrine complaints Hematologic/Lymphatic: Hematologic/Lymphatic: Reports no additional hematologic/lymphatic complaints Allergic/Immunologic: Allergic/Immunologic: Reports no additional allergic/immunologic complaints Exam Const: General: cooperative, healthy appearing and comfortable Orientation/consciousness: oriented to person, oriented to place and oriented to time HENMT: Head: normal to inspection Ears: hearing grossly normal bilaterally Eyes: General: appearance normal, both eyes and all related structures Neck: Neck: normal visual inspection Chest: Chest palpation & inspection: normal inspection of the chest Resp: Effort & Inspection: normal respiratory effort and able to speak in complete sentences Auscultation: no crackles, no rales, no rhonchi, no wheezes and lung sounds not diminished Other: few wheezes end Cardio: Jugular venous distension: no JVD GI: Inspection: normal to inspection Skin: General skin exam: normal color Neuro: General: oriented to person, oriented to place and oriented to time Extrem: General: normal to inspection Psych: Appearance: grossly normal Objective Data Vital Signs Vital Signs: Vital Signs - 24 hr 03/01/25 08:15 03/01/25 12:00 03/01/25 14:00 Temperature 36.4 C Pulse Rate 91 91 Respiratory Rate 20 Blood Pressure 132/65 Pulse Oximetry 96 Oxygen Delivery Room Air 03/01/25 16:00 03/01/25 19:38 03/01/25 19:50 Temperature 36.2 C L Pulse Rate 99 80 Respiratory Rate 20 Blood Pressure 152/71 H Pulse Oximetry 97 97 Oxygen Delivery Room Air 03/01/25 20:00 03/02/25 00:00 03/02/25 04:00 Temperature Pulse Rate 85 73 66 Respiratory Rate Blood Pressure Pulse Oximetry Oxygen Delivery 03/02/25 04:09 Temperature 36.4 C Pulse Rate 73 Respiratory Rate 20 Blood Pressure 153/76 H Pulse Oximetry 99 Oxygen Delivery Intake/Output Intake/Output: Intake & Output 02/27/25 02/28/25 03/01/25 03/02/25 23:59 23:59 23:59 23:59 Intake Total 3070 1780 1466 500 Balance 3070 1780 1466 500 Meds/Results Medications: Active Medications Generic Name Dose Route Start Last Admin Trade Name Freq PRN Reason Stop Dose Admin Acetaminophen 650 mg 02/26/25 17:42 03/01/25 21:19 Acetaminophen 325 Mg Tablet PO 650 mg Q4H PRN Administration Mild Pain (1-3)/ FEVER Acetaminophen/Butalbital/Caffeine 1 tab 02/26/25 21:49 Acetaminophen/Butalbital/Caffeine 325-50-40 Mg Tablet (Fioricet) PO Q4H PRN Headache Azithromycin 500 mg 02/28/25 09:00 03/01/25 09:33 Azithromycin 500 Mg Tablet PO 500 mg DAILY FLORECITA Administration Enoxaparin Sodium 40 mg 02/27/25 09:00 03/01/25 09:35 Enoxaparin 40 Mg/0.4 Ml Syringe SUB-Q 40 mg DAILY FLORECITA Administration Ethambutol HCl 1,600 mg 02/28/25 09:00 02/28/25 10:25 Ethambutol Hcl 400 Mg Tablet PO 1,600 mg MoWeFr FLORECITA Administration Ethambutol HCl 200 mg 02/28/25 09:00 02/28/25 10:25 Ethambutol Hcl 200 Mg Tablet PO 200 mg MoWeFr FLORECITA Administration Guaifenesin 1,200 mg 02/26/25 21:00 03/01/25 21:19 Guaifenesin 12 Hr 600 Mg Tabcr PO 1,200 mg Q12HR FLORECITA Administration Guaifenesin/Codeine Phosphate 10 ml 02/27/25 16:18 02/27/25 16:52 Guaifenesin/Codeine (*Crx) 200/20 Mg 10 Ml Syrup PO 10 ml Q4H PRN Administration Cough Melatonin 3 mg 02/28/25 21:00 03/01/25 21:19 Melatonin 3 Mg Tablet PO 3 mg HS FLORECITA Administration Metoprolol Succinate 50 mg 02/26/25 21:00 03/01/25 21:19 Metoprolol Succinate Ext Rel 50 Mg Tabcr PO 50 mg HS FLORECITA Administration Home Med 300 mg 02/28/25 09:00 02/28/25 09:31 Rifabutin 150 Mg PO 03/30/25 08:59 300 mg Capsule MoWeFr@0900 FLORECITA Administration Home Med Breztri 2 puff(s) 02/27/25 10:30 03/02/25 07:26 160 Mcg/9 Mcg/4.8 INHALATION 03/29/25 10:29 2 puff(s) Mcg Q12HRT FLORECITA Administration Phenol 1 spray 03/01/25 11:55 03/01/25 12:45 Phenol/Sod Pheno [facility] (*[facility]) MUCOUS MEM 1 spray PRN PRN Administration Sore Throat Prednisone 40 mg 02/28/25 09:20 03/01/25 09:34 Prednisone 20 Mg Tablet PO 40 mg DAILY@0800 FLORECITA Administration Sertraline HCl 100 mg 02/27/25 09:00 03/01/25 09:33 Sertraline Hcl 50 Mg Tablet PO 100 mg DAILY FLORECITA Administration Radiology Results: ITS Impressions Chest X-Ray 02/26/25 12:44 IMPRESSION: 1. No acute cardiopulmonary disease. Head CT 02/26/25 14:35 IMPRESSION: No acute intracranial findings. Slight dilatation of the lateral ventricles. Follow-up advised. Chest CT 02/26/25 14:45 IMPRESSION: 1. No acute cardiopulmonary pathology. 2. Small sliding hiatus hernia. Labs Labs: Laboratory Results - last 24 hr 03/02/25 03:59 WBC 6.5 RBC 4.10 L Hgb 12.3 Hct 37.3 MCV 91.0 MCH 30.0 MCHC 33.0 RDW 12.8 Plt Count 316 MPV 9.4 Sodium 139 Potassium 3.7 Chloride 105 Carbon Dioxide 28 Anion Gap 6 BUN 15 Creatinine 0.86 Estim Creat Clear Calc 65 Estimated GFR > 60 Glucose 88 Calcium 8.6 Total Bilirubin 0.3 AST 41 H ALT 52 H Alkaline Phosphatase 55 Total Protein 6.1 L Albumin 3.5
[2025-03-02] MEDS: SERTRALINE HCL 50 MG TABLET 100 MG PO (08:21)
[2025-03-02] MEDS: ETHAMBUTOL HCL PO (08:21)
[2025-03-02] MEDS: AZITHROMYCIN 500 MG TABLET PO (08:22)
[2025-03-02] MEDS: ETHAMBUTOL HCL 400 MG TABLET 1600 MG PO (08:22)
[2025-03-02] MEDS: guaiFENesin 12 HR 600 MG TABCR 1200 MG PO (08:22)
[2025-03-02] MEDS: RIFABUTIN 150 MG 300 EACH PO (08:23)
--- NOTE | 2025-03-02 10:06 | HOMEO2EVAL ---
Evaluation was performed at [facility] Home Oxygen Evaluation RC: Home Oxygen (O2) Evaluation Start: 03/02/25 08:05 Freq: ONCE Status: Active Protocol: RPE Activity Type Activity Date Activity User E-sign Co-sign Detail Recorded Client Recorded Date Recorded By Document 03/02/25 09:04 DJO [email or web address] 03/02/25 10:05 DJO Document 03/02/25 09:45 [email or web address] [email or web address] 03/02/25 10:05 DJO Document 03/02/25 10:05 [email or web address] [email or web address] 03/02/25 10:05 DJO 03/02/25 03/02/25 03/02/25 09:04 09:45 10:05 Home O2 Evaluation [Oxygen] -Test Phase Exercise Resting Resting -Oxygen Delivery Room Air Room Air Room Air [Pulse Oximetry] -Pulse Oximetry (90-100 %) 93 97 97 [Pulse Rate] -Pulse Rate (60-100 beats/min) 115 H 76 81 [Evaluation] -Activity Tolerance Good [Exercise] -Ambulation Distance (feet) 500 -Ambulation Distance (meters) 152.39 [Charges] -Evaluation Charges O2 Evaluation by Pulmonary
--- NOTE | 2025-03-02 10:06 | PCRCNOTE ---
HOME OXYGEN EVAL COMPLETE, NO DAYTIME REQUIREMENTS. PT HAS NOC O2 AT 1L.
--- NOTE | 2025-03-02 10:15 | PM.DS ---
DS: Admitting Diagnosis Discharge Date 03/02/2025 Admitting Diagnosis COPD exacerbation DS: Discharge Diagnosis Discharge Diagnosis (1) Acute respiratory failure with hypoxia: Code(s): J96.01 - Acute respiratory failure with hypoxia Status: Acute (2) COPD exacerbation: Code(s): J44.1 - Chronic obstructive pulmonary disease with (acute) exacerbation Status: Chronic (3) UTI (urinary tract infection): Code(s): N39.0 - Urinary tract infection, site not specified Status: Acute (4) Pulmonary Mycobacterium avium complex (MAC) infection: Code(s): A31.0 - Pulmonary mycobacterial infection Status: Acute (5) Hypertension: Code(s): I10 - Essential (primary) hypertension Status: Chronic (6) Depression: Code(s): F32.A - Depression, unspecified Status: Chronic (7) Headache: Code(s): R51.9 - Headache, unspecified Status: Chronic DS: Summary Hospital Course Reason for hospitalization: shortness of breath Hospital Course: 64-year-old female with past medical history of COPD, hypertension, pulmonary MAC presents the hospital with increased shortness of breath. Patient states that she wears 1 L of oxygen at home at night. Patient states that her shortness of breath has gotten worse. She is now short of breath at rest which she usually is not. She does complain of a productive cough. She has been taking her home medications as prescribed. She complains of not eating as much because she has not felt well. Denies fever chills. Chest CT shows no acute process, head CT was slightly dilated lateral ventricles, chest x-ray with no acute process. Patient will be admitted for COPD exacerbation. On 02/21, patient initially started valving fatigue which increased to a cough with dyspnea at rest and increased phlegm production. The symptoms progressively got worse over the next few days until her presentation to the emergency room on 02/26. Patient was initially started on Solu-Medrol, bronchodilators, Levaquin and azithromycin. Over the next few days during her hospitalization, her symptoms continue to improve. She initially continued to have some shortness of breath at rest but this steadily improved. O2 saturations also steadily improved throughout hospitalization. She remained afebrile with a normal white blood cell count. Pulmonology was consulted regarding COPD exacerbation. The recommended discontinuing DuoNebs and placing the patient on home breztri, along with continuing prednisone 40 mg p.o. daily, levothyroxine and azithromycin. On 03/02, pulmonary cleared the patient for discharge from their standpoint. The recommended continuing rescue albuterol inhaler/nebulizer for p.r.n. shortness of breath/wheezing, azithromycin, ethambutol, rifabutin, and obtaining an O2 home assessment. Patient is amenable to this plan he can be safely discharged at this time. She will follow-up with the Pulmonary Clinic in 4 weeks. She has been given the follow-up information regarding this and prescriptions have been sent to her pharmacy. Plan for discharge home at this time. Status at Discharge Functional status at discharge: independent ambulation Overall status at discharge: patient is back to baseline Time Spent with Patient Time attestation: Total time spent providing and/or coordinating discharge services: 36 Exam Narrative: AF HR 80 RR 16 SPO2 97 BP 160/73 General: female in no acute respiratory distress who is nontoxic appearing, sitting up in chair HEENT: Normocephalic. Atraumatic. Extraocular movement intact. Sclera clear and anicteric. No facial asymmetry. Chest: normal respiratory effort and able to speak in complete sentences. No crackles. Speak full sentences. Dry cough. lung sounds not diminished CV: Heart was regular rate and rhythm. S1-S2. No murmurs, gallops, or rubs. Abd: Abdomen was soft. Slight tenderness to hypogastric region without guarding. Nondistended. Positive bowel sounds. No organomegaly or masses. Ext: No clubbing, cyanosis, or edema. DP pulses bilaterally. Neuro: Patient is alert. Speech is clear. Const: General: comfortable and no acute distress Other: Sitting up in bed in no acute distress. HENMT: Face/Nose/Sinus: Normal nares present Mouth: Yes moist mucous membranes Eyes: General: appearance normal, both eyes and all related structures Neck: Neck: supple and no JVD Lymphatic: lymphadenopathy not noted Resp: Effort & Inspection: normal respiratory effort Auscultation: rhonchi (Throughout all reilly, coarse rhonchi) Cardio: Rate: regular rate Rhythm: regular rhythm GI: Inspection: non-distended Auscultation: normal bowel sounds Skin: General skin exam: normal color, no rashes or lesions noted and no erythema Neuro: General: gait normal Speech: normal speech Motor exam (neuro): 5/5 motor strength present throughout and Normal motor muscle tone present throughout Sensory Exam: normal sensation Extrem: General: normal to inspection, no edema and no pedal edema Other: Freely and equally MAEW without deficit. Psych: Mental Status: mental status grossly normal DS: Data Data Completed and Pending Labs on day of discharge: Labs from last 24 hours 03/02/25 03:59 WBC 6.5 RBC 4.10 L Hgb 12.3 Hct 37.3 MCV 91.0 MCH 30.0 MCHC 33.0 RDW 12.8 Plt Count 316 MPV 9.4 Sodium 139 Potassium 3.7 Chloride 105 Carbon Dioxide 28 Anion Gap 6 BUN 15 Creatinine 0.86 Estim Creat Clear Calc 65 Estimated GFR > 60 Glucose 88 Calcium 8.6 Total Bilirubin 0.3 AST 41 H ALT 52 H Alkaline Phosphatase 55 Total Protein 6.1 L Albumin 3.5 Discharge Plan Discharge Attending physician on discharge: Beny Christy Consulting providers: Jai Jolly; Sara Benson; Fadi Garrett Discharging Clinician: Fadi Garrett Anticipated Discharge Date/Time: 03/02/25 10:07 Patient Disposition: Home Activity: as tolerated Diet: heart healthy Discharge Instructions: Discharge disposition: Home, stable Take medications as prescribed. You will be prescribed the following: Breztri At 2 puffs twice a day Rescue albuterol inhaler 2 puffs q.4 hours p.r.n. shortness of breath or wheezing. Rescue albuterol nebulizer q.4 hours p.r.n. shortness of breath or wheezing Azithromycin 500 mg p.o. Friday Ethambutol 1800 mg p.o. Friday Rifabutin 300 mg p.o. Friday Monitor blood pressures Take caution while standing, rising, or moving Change positions slowly taking a break between each position change If you standing feel dizzy sit back down and take a break Encouraged to continue with yearly vaccinations Return to the emergency department if he developed sudden shortness of breath, chest pain, nausea, vomiting, upset stomach or intractable diarrhea Return to the emergency department if you develop fever greater than 101.5 Follow-up with the primary care physician within 1-2 [address] up [address] Jolly of Pulmonology in 4 weeks. Thank you for choosing [facility] for your healthcare needs Patient Instructions: Antibiotic Form Patient Language: Hong Konger Stand Alone Forms: General Discharge Information, Work/School Release IP Follow-up/Referrals: Miles Medina MD [Primary Care Provider] - Jai Jolly MD [Physician] - Discharge Medications: Continued ethambutol 400 mg tablet 1,800 mg PO .COMPLEX Rx Instructions: 1,800 mg orally; Take Fri rifabutin 150 mg capsule 300 mg PO DAILY Rx Instructions: Take 2 pills Fri and Friday azithromycin 500 mg tablet 500 mg PO .COMPLEX Rx Instructions: 500 mg orally; Friday, Friday, & Friday guaifenesin [Mucus Relief ER] 600 mg Tablet Extended Release 12hr 1,200 mg PO Q12HR Qty: 60 0RF albuterol sulfate 2.5 mg /3 mL (0.083 %) solution for nebulization 2.5 mg inhalation Q4-6H PRN (Reason: shortness of breath or wheezing) Qty: 180 3RF sertraline 100 mg tablet 100 mg PO DAILY Qty: 90 0RF metoprolol succinate 50 mg tablet extended release 24 hr 50 mg PO HS Qty: 30 4RF Breztri Aerosphere 160-9-4.8 mcg/actuation HFA aerosol inhaler See Rx Instructions .ROUTE .COMPLEX Qty: 11 3RF Dose Instruction: Inhale 2 puffs by mouth twice daily Rx Instructions: Inhale 2 puffs by mouth twice daily Discontinued albuterol sulfate [ProAir HFA] 90 mcg/actuation HFA aerosol inhaler 1 inh inhalation Q4H PRN (Reason: shortness of breath or wheezing) Qty: 6.7 3RF Date of admission: 02/26/25 16:37 Primary Care Provider: Miles Medina Admitting Provider: Sherif Wolfe Attending physician on admission: Sherif Wolfe Condition: Stable Quality VTE Prophylaxis VTE prophylaxis: pharmacologic ordered
== END 2025-03-02 11:32 | disposition home or self-care (01) | DRG 191 ==
LOC: ANHED 16:40 → ANH2MED 17:03
PROVIDERS: Emergency Medicine; Internal Medicine Pulmonary Disease; Nurse Practitioner Gerontology; Student in an Organized Health Care Education/Training Program; Admitting Provider Internal Medicine; Emergency Provider Emergency Medicine; PCP Family Medicine; Visit Provider Physician Assistant
DX: J44.1 Chronic obstructive pulmonary disease with (acute) exacerbation (principal); A31.0 Pulmonary mycobacterial infection; N39.0 Urinary tract infection, site not specified; I10 Essential (primary) hypertension; F32.A Depression, unspecified; R51.9 Headache, unspecified; E78.2 Mixed hyperlipidemia; Z90.49 Acquired absence of other specified parts of digestive tract; Z87.891 Personal history of nicotine dependence
CPT/HCPCS: 36415; 36600; 70450; 71045; 71250; 80048; 80053; 81001; 82805; 83735; 83880; 84145; 84484; 85018; 85025; 85027; 85380; 85610; 85730; 87086; 87637; 93005; 94618; 94640; 96361; 96365; 96372; 96375; 99285; A9270; J0780; J1100; J1200; J1650; J1956; J2919; J3475; J7030; J7040; J7512

== ENCOUNTER 2025-04-20 14:41 | Outpatient (CLI) | payer MEDICARE, SELFPAY ==
--- NOTE | 2025-04-20 15:38 | ECHO_ITS ---
Patient Info Name: Liz Vanegas Age: 65 years : 1960 Gender: Female Ht: 71 in Wt: 179 lbs BSA: 2.02 m2 HR: 77 bpm BP: 136 / 78 mmHg Technical Quality: Fair Exam Date: 04/20/2025 4:00 PM Patient Status: O Admit Date: 04/20/2025 Exam Type: CA echo doppler color flow Complete two-dimensional, color flow and Doppler transthoracic echocardiogram is performed. Hair Spring Winder: Gladis Boothe Attending Provider: Jai Jolly Summary 1. Complete two-dimensional, color flow and Doppler transthoracic echocardiogram is performed. 2. Left ventricular chamber dimension is normal. 3. Left ventricular systolic function is normal, estimated at 60-65. 4. The left ventricular diastolic function is normal. 5. E/e' 9 is minimally elevated. 6. Left atrial chamber dimension is moderately enlarged. 7. Right atrial chamber dimension is mildly enlarged. 8. There is mild mitral valve regurgitation. 9. There is mild to moderate tricuspid valve regurgitation. 10. No pulmonary hypertension, estimated pulmonary arterial systolic pressure is 34 mmHg. Left Ventricle E/e' 9 is minimally elevated. Left ventricular chamber dimension is normal. Left ventricular systolic function is normal, estimated at 60-65. The left ventricular diastolic function is normal. Right Ventricle Right ventricular chamber dimension is normal. Right ventricular systolic function is normal and with normal TAPSE 1.9 cm. Left Atria Left atrial chamber dimension is moderately enlarged. Right Atria Right atrial chamber dimension is mildly enlarged. Aortic Valve The aortic valve is trileaflet. There is no aortic valve stenosis. There is no aortic valve regurgitation. Pulmonic Valve There is no pulmonic regurgitation. Mitral Valve There is no mitral valve stenosis. There is mild mitral valve regurgitation. Tricuspid Valve There is mild to moderate tricuspid valve regurgitation. No pulmonary hypertension, estimated pulmonary arterial systolic pressure is 34 mmHg. Pericardium/Pleural There is no pericardial effusion. Inferior Vena Cava Normal inferior vena cava with >50% collapse upon inspiration consistent with normal right atrial pressure, 5 mmHg. Aorta The aortic root size at the sinus of Valsalva is normal. Left Ventricular Outflow Tract Name Value Normal LVOT 2D LVOT Diameter 2.0 cm LVOT Doppler LVOT Peak Velocity 111 cm/s LVOT Peak Gradient 5 mmHg LVOT Mean Gradient 3 mmHg LVOT VTI 25 cm LVOT VTI/AV VTI Ratio 1.0 LVOT Stroke Volume 75 ml LVOT CO 14.4 l/min LVOT CI 7.1 l/min/m2 Pulmonic Valve Name Value Normal PV Doppler PV Peak Velocity 108 cm/s PV Peak Gradient 5 mmHg Mitral Valve Name Value Normal MV Diastolic Function MV E Peak Velocity 98 cm/s MV A Peak Velocity 82 cm/s MV E/A 1.2 MV Decel Time (PW) 185 ms MV Annular TDI MV E/e' (Septal) 10.1 MV E/e' (Lateral) 8.9 MV E/e' (Average) 9.5 Tricuspid Valve Name Value Normal TV Regurgitation Doppler TR Peak Velocity 268 cm/s TR Peak Gradient 28 mmHg Estimated PAP/RSVP RA Pressure 5 mmHg <=5 PA Systolic Pressure 34 mmHg <36 RV Systolic Pressure 34 mmHg <36 TV Annular TDI TV Lateral Kat s' Velocity 13.9 cm/s >=9.5 Aorta Name Value Normal Ascending Aorta Ao Root Diameter (MM) 3.1 cm Ao Root Diam Index (MM) 1.5 cm/m2 Aortic Valve Name Value Normal AV Doppler AV Peak Velocity 124 cm/s AV Peak Gradient 6 mmHg AV Mean Gradient 3 mmHg AV VTI 25 cm AV Area (Cont Eq VTI) 3.0 cm2 >=3.0 AV Area (Cont Eq Olman) 2.7 cm2 AV DI (Olman) 0.90 AV Regurgitation 2D LVOT Area 3.0 cm2 Ventricles Name Value Normal LV Dimensions 2D/MM IVS Diastolic Thickness (2D) 1.1 cm 0.6-1.0 LVID Diastole (2D) 4.5 cm 3.8-5.2 LVIW Diastolic Thickness (2D) 0.9 cm 0.6-0.9 LVID Systole (2D) 3.1 cm 2.2-3.5 LVOT Diameter 2.0 cm LV Mass (2D Cubed) 154.58 g 67.00-162.00 LV Mass Index (2D Cubed) 76 g/m2 43-95 Relative Wall Thickness (2D) 0.41 <=0.42 LV Fractional Shortening/Ejection Fraction 2D/MM LV Fractional Shortening (2D) 30 % 27-45 LV EF (2D Teichholz) 58 % LV Diastolic Volume (4C MOD) 94 ml LV EF (4C MOD) 56 % LV Diastolic Volume (2C MOD) 68 ml LV EF (2C MOD) 73 % LV Diastolic Volume (BP MOD) 80 ml 46-106 LV Diastolic Volume Index (BP MOD) 40 ml/m2 29-61 LV Systolic Volume (BP MOD) 29 ml 14-42 LV Systolic Volume Index (BP MOD) 14 ml/m2 8-24 LV EF (BP MOD) 63 % 54-74 LV Diastolic Length (4C) 6.9 cm LV Systolic Length (4C) 6.1 cm LV Stroke Volume (4C MOD) 52 ml RV Dimensions 2D/MM RVID Diastole (2D) 3.4 cm 2.1-3.5 Atria Name Value Normal LA Dimensions LA Dimension (MM) 3.9 cm 2.7-3.8 LA Volume (4C A-L) 52 ml LA Volume (BP A-L) 53 ml RA Dimensions RA Systolic Major [place] Length (4C) 4.7 cm 2.2-2.8 RA Area (4C) 16.2 cm2 <=18.0 Report Signatures
--- OUTSIDE RECORDS SUMMARY | 2025-04-20 16:11 | XMS_ITS | Encounter Summary ---
Author Organization [facility] Address [address] [facility] [address] [place] [address] Phone Care Team Providers Care Autocad Designer Name Role Phone Miles Medina MD Primary Care Provider + [phone] Encounter Details Date Type Department Care Team (Late st Contact Info) Description 11/30/2021 Ophth Exam [facility] Ophthalmology [address] [place] [address] 1[address] [place] [address] Dg Zuniga MD [address] [facility] [phone] [place] [address] Social History Tobacco Use Types Packs/Day Years Used Date Smoking Tobacco: Never Assessed Comments No Sex and Gender Information Value Date Recorded Sex Assigned at Not on file 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
--- OUTSIDE RECORDS SUMMARY | 2025-04-20 16:11 | XMS_ITS | Clinical Summary ---
Author Organization [facility] Address [address] Nava: Epic Prelude ADT [place] [address] Care Team Providers Care Nitrocellulose Operator Name Role Phone Unavailable Primary Care Provider [...] Comments DTAP/TDAP/TD VACCINES (1 - Tdap) 1979 COLORECTAL SCREENING 2005 Colorectal Cancer Screening 2005 FIT-DNA Q 3 years 2005 FIT/FOBT Q 1 year 2005 Flex Sig/CT Colonography Q 5 years 2005 PNEUMOCOCCAL VACCINE 50+ YEA RS (1 of 1 - PCV) 2010 ZOSTER VACCINE (1 of 2) 2010 BREAST CANCER SCREENING 01/24/2020 01/23/2019, 01/23 OSTEOPOROSIS SCREENING 2025 INFLUENZA VACCINE (#1) 2025 RSV VACCINE (60+ or ) (1 - 1-dose 75+ series) 2035
--- OUTSIDE RECORDS SUMMARY | 2025-04-20 16:11 | XMS_ITS | Clinical Summary ---
Author Organization [facility] Address [address] [place] [address] Care Team Providers Care Occupancy Specialist Name Role Phone Miles Medina MD Primary Care Provider [phone] Allergies Active Allergy Reactions Criticality Noted Date [...] % nebulizer solutionIndicat ions:Mycobacter ium avium complex USE 4 ML IN NEBULIZER TWICE DAILY [...] - CT initially performed on 10/21/2023 at [facility] and this is being compared to a prior study that was done on 06/13/23 at [facility]. This was uploaded for consult. - 08/21/22: + Mycobacterium Avium: Resistant: Amikacin, linezolid, moxifloxacin. Susceptible: Amikacin inhaled, clarithromycin, ciprofloxacin - multiple drug allergies including PCN (nausea/vomiting/diarrhea), Sulfa (christiano johnsons syndrome), tetracycline (rash). - Recommend inhaled hypertonic 3% saline to help clear secretions, as well as an Acapella device. She should be able to obtain these through her spray machine loader. - In regards to choice of treatment [...] - CT initially performed on 10/21/2023 at [facility] and this is being compared to a prior study that was done on 06/13/23 at [facility]. This was uploaded for consult. - 08/21/22: + Mycobacterium Avium: Resistant: Amikacin, linezolid, moxifloxacin. Susceptible: Amikacin inhaled, clarithromycin, ciprofloxacin - multiple drug allergies including PCN (nausea/vomiting/diarrhea), Sulfa (christiano johnsons syndrome), tetracycline (rash). - Recommend inhaled hypertonic 3% saline to help clear secretions, as well as an Acapella device. She should be able to obtain these through her spray machine loader. - In regards to choice of treatment [...] - 02/04/2025 11:59 PM CDT Hospital Encounter [facility] [address] [place] [id number] Pulmonary mycobacterial infection (HCC); Bronchiectasis without complication (HCC) Discharge Disposition: Discharge to home or self care 01/19/2025 Telephone [facility] Medicine Infectious Diseases [address] [place] [phone] Yasmeen Loera CMA 01/18/2025 10:28 AM CDT - 01/18/2025 11:59 PM CDT Hospital Encounter [facility] [address] [place] [address] Discharge Disposition: Discharge to home or self care 01/18/2025 9:20 AM CDT Office Visit [facility] Medicine Infectious Diseases [address] [place] [phone] Chiquita Delarosa NP Pulmonary mycobacterial infection (HCC) (Primary Dx); Bronchiectasis without complication (HCC); Encounter for long-term (current) use of antibiotics 01/18/2025 Orders Only [facility] Medicine Infectious Diseases [address] [place] [phone] Chiquita Delarosa NP Pulmonary mycobacterial infection (HCC) [...] on file 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 Gender Identity Female 12/03/2021 10:24 AM CDT [...] Colon Cancer Screening-Colonoscopy 1960 Depression Screening 1960 Fall Risk Assessment 1960 Hepatitis C Screening 1960 Osteoporosis Screening-Bone Density Scan 1960 DTaP/Tdap/Td Vaccine (1 - Tdap) 1971 Hepatitis B Screening 1978 Zoster Vaccine (1 of 2) 2010 Well Visit 65+ 2025 Covid-19 Vaccine (3 - season) 2025, 01/03/2021 Influenza Vaccine (#1) 2025 04/05/2023 Pneumococcal vaccine 65+ Completed 11/11/2023 Procedures Procedure Name Priority Date/Time Associated Diagnosis Comments MYCOBACTERIOLOGY AFB CULTURE AND ACID-FAST STAIN Routine 02/24/2025 11:24 AM CDT Pulmonary mycobacterial infection (HCC) MYCOBACTERIOLOGY AFB CULTURE AND ACID-FAST STAIN Routine [...] antibiotics from Last 3 Months Results * Mycobacteriology (AFB) culture and acid-fast stain Sputum Sputum (02/24/2025 11:24 AM CDT) Mycobacteria culture w/ flurochrome smear [facility] Comment: MYCOBACTERIA, CULTURE, WITH FLUOROCHROME SMEAR Micro Number: [id number] Test Status: Final Specimen Source: Sputum Specimen Quality: Adequate Smear: No acid-fast bacilli seen using the fluorochrome method. Result: No Mycobacterium species isolated after 6 weeks incubation. Sputum (Sputum) 02/24/2025 1 1:24 AM CDT 02/24/2025 11:29 PM CDT Chiquita Delarosa NP LAB MICROBIOLOGY - GEN ERAL ORDERABLES Final Result Performing Organization Address [facility] Co de Phone Number [facility] [address] [place] [address] * Mycobacteriology (AFB) culture and acid-fast stain Sputum Sputum (02/22/2025 7:00 PM CDT) Mycobacteria culture w/ flurochrome smear [facility] Comment: MYCOBACTERIA, CULTURE, WITH FLUOROCHROME SMEAR Micro Number: [id number] Test Status: Final Specimen Source: Sputum Specimen Quality: Adequate Smear: No acid-fast bacilli seen using the fluorochrome method. Result: No Mycobacterium species isolated after 6 weeks incubation. Sputum (Sputum) 02/22/2025 7 :00 PM CDT 02/24/2025 5:00 AM CDT Narrative [facility] - 04/07/2025 11:32 AM CDT FASTING:NO FASTING: NO Chiquita Delarosa NP LAB MICROBIOLOGY - GEN ERAL ORDERABLES Final Result Performing Organization Address [facility] Co de Phone Number [facility] [address] [place] [address] * CT chest without contrast (02/04/2025 11:46 [...] NP LAB BLOOD ORDERABLES F inal Result [facility] Department [place] [address] * eGFR (01/18/2025 10:25 AM CDT) eGFR [...] of Race in Diagnosing Kidney Disease, JASN 202). The CKD-EPI equation should not be used for patients with unstable renal function and has not been validated in children and those over 70. Current interpretive data was last reviewed 2021. Blood 01/18/2025 10:2 5 AM CDT 01/18/2025 12:53 PM CDT us Chiquita Delarosa NP LAB BLOOD ORDERABLES F inal Result [facility] [place] [address] * Differential, auto (01/18/2025 10:25 AM CDT) Neutrophil abs 2.85 1.50 - 6.50 K/cumm Imm gran abs 0.01 0.00 - 0.10 K/cumm [facility] Lymphocyte abs 1.07 0.80 - 3.30 K/cumm [facility] Monocyte abs 0.72 0.20 - 0.80 K/cumm [facility] Eosinophil abs 0.11 0.00 - 0.50 K/cumm [facility] Basophil abs 0.02 0.00 - 0.10 K/cumm [facility] Neutrophil pct 59.6 % [facility] [...] revised on 2017. Monocyte pct 15.1 % [facility] Comment: Interpretive Data Percent cell count [...] 01/18/2025 12:46 PM CDT us Chiquita Delarosa [employer] LAB BLOOD ORDERABLES F inal Result [facility] Department [place] [address] * Comprehensive metabolic panel, without glucose (Outreach) [...] CDT 01/18/2025 12:46 PM CDT Chiquita Delarosa [employer] LAB BLOOD ORDERABLES F inal Result Performing Organization Address City/[facility]/ZIP Co de Phone Number [facility] [place] [address] * CBC with auto differential (01/18/2025 10:25 AM CDT) [facility] WBC 4.78 3.80 - 9.90 K/cumm Hgb [...] NP LAB BLOOD ORDERAB[place] [address] from Last 3 Months [facility] Care Teams Occupancy Specialist Relationship Specialty Start Date End Date Miles Medina MD PCP - General 02/22/15
--- NOTE | 2025-04-21 13:38 | WPDSIXMINUTE ---
Six Minute Walk Procedure Procedure Performed Pulmonary Stress Test (6 min walk) Six Minute Walk Six Minute Walk: This is a 6 minute walk test. The test was performed and interpreted in accordance with the 2014 ERS/ATS task force guidelines. Findings: The patient's resting room air oxygen saturation measured by pulse oximetry was 98%, the heart rate was 70 bpm, and the modified Chante dyspnea score was 2. Patient ambulated for 396 meters and oxygen saturation remained 95 to 97%. At the end of the study the heart rate was 102 bpm and the modified Chante dyspnea score was 3. The patient did not qualify for supplemental oxygen at rest or with ambulation. There are no prior studies for comparison.
--- NOTE | 2025-04-21 13:41 | WPDPFTINT ---
PFT Procedure Performed PFT Procedure Performed Spirometry with Pre/Post Bronchodilator Plethysmography (Lung Vol) Diffusing Cap (DLCO) Flow Vol Loop PFT Interpretation This is a pulmonary function test with pre and post-bronchodilator spirometry, plethysmography and diffusing capacity. The test was performed and results interpreted in accordance with the 2019 and 2005 ATS/ERS Task Force guidelines respectively using the Global Lung Function Initiative-2012 reference equations. Patient demonstrated good effort and cooperation. Reproducibility criteria were met. The quality of the pre bronchodilator spirometry maneuver was Grade A and post bronchodilator spirometry maneuver was Grade A. Findings: Spirometry: There is decreased maximal expiratory airflow at all lung volumes with concave expiratory flow tracing. The contour the inspiratory flow tracing is normal. The pre bronchodilator FVC is 2.44 L, 64% predicted. The pre bronchodilator FEV1 is 1.27 L, 44% predicted. The pre bronchodilator FEV1: FVC ratio is 52%. The post bronchodilator FVC is 2.78 L, representing a 14% increase. The post bronchodilator FEV1 is 1.52 L, representing a 20% increase. The post bronchodilator FEV1: FVC ratio is 55%. Plethysmography: The total lung capacity is 6.32 L, 104% predicted. The functional residual capacity is 4.54 L, 130% predicted. The residual volume is 3.69 L, 152% predicted. The residual volume: Total lung capacity ratio 58%. Diffusing capacity: The diffusing capacity unadjusted for hemoglobin and carboxyhemoglobin is 12.2, 51% predicted. The diffusing capacity adjusted for alveolar volume is 3.73, 92% predicted. In comparison to previous pulmonary function testing on 06/21/2024 the post bronchodilator FVC has decreased from 3.43 L to 2.78 L. The post bronchodilator FEV1 is unchanged from 1.66 L to 1.52 L. The total lung capacity is unchanged from 7.06 L to 6.32 L. The functional residual capacity is unchanged from 4.91 L to 4.54 L. The residual volume is unchanged from 4.05 L to 3.69 L. The residual volume: Total lung capacity ratio is unchanged from 57% to 58%. The diffusing capacity unadjusted for hemoglobin and carboxyhemoglobin is unchanged from 13.9 to 12.2. The diffusing capacity adjusted for alveolar volume is unchanged from 3.23 to 3.73. Impression: There is a severe obstructive abnormality. There is significant improvement after inhaling a single dose of albuterol. The increase in residual volume to total lung volume ratio is consistent with hyperinflation from an obstructive abnormality. The diffusing capacity unadjusted for hemoglobin and carboxyhemoglobin is moderately decreased and normalizes when adjusted for alveolar volume. In comparison to previous pulmonary function testing on 06/21/2024, there has been a greater than anticipated time dependent decrease in the FVC With no significant change in the FEV1, total lung capacity, functional residual capacity, residual volume, residual volume: Total lung capacity ratio or diffusing capacity. Clinical correlation is recommended.
== END 2025-04-20 14:42 | disposition home or self-care (01) ==
PROVIDERS: PCP Family Medicine; Visit Provider Internal Medicine Pulmonary Disease
DX: J44.9 Chronic obstructive pulmonary disease, unspecified (principal); R06.02 Shortness of breath; R94.2 Abnormal results of pulmonary function studies
CPT/HCPCS: 93306; 94060; 94618; 94726; 94729